=== PATIENT | female | born 1980 | race Caucasian/White ===

== ENCOUNTER 2017-02-05 12:15 | Outpatient (CLI) | payer MEDICARE, MEDICAID ==
[2017-02-05] MEDS ORDERED: IOPAMIDOL-300 100 ML VIAL ONE (12:32)
[2017-02-05] MEDS ORDERED: IOPAMIDOL-300 100 ML VIAL IVP ONE (13:07)
--- NOTE | 2017-02-05 17:21 | CT Report ---
CT PULMONARY ANGIOGRAM: 02/05/2017 CLINICAL INDICATION: Elevated D-dimer. Axial CT images of the chest were obtained with 80 mL Isovue-300 intravenously. Sagittal and coronal 3D reconstructions were performed. In accordance with CT protocol optimization, one or more of the following dose reduction techniques w ere utilized for this exam: automated exposure control, adjustment of mA and/or KV based on patient size, or use of iterative reconstructive technique. The heart and great vessels are unremarkable. There is no evidence of pulmonary embolus. No hilar o r mediastinal lymphadenopathy is present. There is a small amount of soft tissue in the anterior med iastinum, compatible with residual thymic tissue. The lungs are clear. No effusion or pneumothorax is present. Limited evaluation of upper abdominal structures demonstrates normal adrenal glands. Fa tty infiltration of the liver is noted. Osseous structures are unremarkable. IMPRESSION: NO EVIDENCE OF PULMONARY EMBOLUS. FATTY INFILTRATION OF THE LIVER. JOB #: [id number] EXT JOB #:[id number]
== END 2017-02-05 12:16 | disposition home or self-care (01) ==
LOC: DI 12:15
PROVIDERS: ATTEND Family Medicine
DX: K76.0 Fatty (change of) liver, not elsewhere classified (principal)
CPT/HCPCS: 71275; Q9967

== ENCOUNTER 2017-08-01 06:43 | Outpatient (CLI) | payer MEDICARE | END 2017-08-01 06:44 | disposition critical access hospital (66) | LOC: EMS 06:43 | PROVIDERS: ATTEND Surgery | DX: R10.9 Unspecified abdominal pain (principal); M54.9 Dorsalgia, unspecified | CPT/HCPCS: A0425; A0429 ==

== ENCOUNTER 2017-08-01 07:10 | Emergency (ER) | payer MEDICAID, MEDICARE ==
[2017-08-01] MEDS ORDERED: ONDANSETRON 4 MG/2 ML VIAL IVP STA (07:25)
[2017-08-01] MEDS ORDERED: HYDROmorphone 1 MG/ML CARPUJECT IVP STA (07:25)
[2017-08-01] MEDS ORDERED: SODIUM CHLORIDE 0.9% 1,000 ML IV ONE (07:25)
--- NOTE | 2017-08-01 07:30 | ED Physician Documentation ---
PD HPI ABD PAIN - Stated complaint Stated Complaint: RLQ PX - Chief complaint Chief Complaint: Abd Pain - History obtained from History obtained from: Patient - History of Present Illness Timing - onset: Yesterday Timing - details: Gradual onset Quality: Pain Location: RLQ Worsened by: Moving Associated symptoms: Nausea, Vomiting. No: Fever, Diarrhea, Dysuria Similar symptoms before: Has not had sx before - Additional information Additional information: The patient is a 36-year-old female who presents with right lower quadrant abdominal pain. Her pain started yesterday in the periumbilical region. It has become worse this morning and has become more localized to the right lower quadrant. She reports associated vomiting. She denies fever, diarrhea, or dysuria. Her last menstrual period was 2 weeks ago. She is status post cholecystectomy years ago. Review of Systems Constitutional: denies: Fever Nose: denies: Congestion Throat: denies: Sore throat Cardiac: denies: Chest pain / pressure Respiratory: denies: Dyspnea, Cough GI: reports: Abdominal Pain, Nausea, Vomiting. denies: Diarrhea : reports: LMP (2 weeks ago.). 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 : None HEENT: None Psych: Bipolar disorder, Post traumatic stress disorder Musculoskeletal: None Derm: None - Past Surgical History Past Surgical History: Yes General: Cholecystectomy, Other Ortho: Knee replacement, Other - Present Medications Home Medications: Ambulatory Orders Medication Instructions Recorded Confirmed Ibuprofen [Motrin] 400 mg PO Q6H PRN #30 tablet 06/24/15 Lamictal 100 mg PO BID 09/14/15 11/29/15 Seroquel 400 mg PO DAILY 09/14/15 11/29/15 Cyclobenzaprine [Flexeril] 10 mg PO TID PRN #10 tablet 11/29/15 Montelukast [Singulair] 10 mg PO DAILY 11/29/15 11/29/15 clonazePAM [KlonoPIN] 1 mg PO TID 11/29/15 11/29/15 HYDROcod/ACETAM 5/325 [Matewan 5/325] 1 - 2 ea PO Q6H PRN #15 tablet 01/17/16 - Allergies Allergies/Adverse Reactions: Allergies Allergy/AdvReac Type Severity Reaction Status Date / Time tramadol Allergy Rash Verified 08/01/17 07:15 Penicillins AdvReac Intermediate Edema Verified 06/14/15 07:27 - Social History Does the pt smoke?: Yes Smoking Status: Current every day smoker Does the pt drink ETOH?: No Does the pt have substance abuse?: No - Immunizations Immunizations are current?: Yes - POLST Patient has POLST: No PD ED PE NORMAL - Vitals Vital signs reviewed: Yes (Diastolic hypertension initially.) - General General: Alert and oriented X 3, Well developed/nourished - HEENT HEENT: Atraumatic, Moist mucous membranes - Neck Neck: Supple, no meningeal sign, No adenopathy - Cardiac Cardiac: RRR, No murmur - Respiratory Respiratory: No respiratory distress, Clear bilaterally - Abdomen Abdomen: Soft, Other (Tenderness to palpation in the right lower quadrant, without rebound tenderness or guarding.) - Back Back: No CVA TTP - Derm Derm: No rash - Extremities Extremities: No edema, No calf tenderness / cord - Neuro Neuro: Alert and oriented X 3, No motor deficit, Normal speech Results - Vitals Vitals: Vital Signs - 24 hr 08/01/17 09:15 Heart Rate 88 Respiratory 20 Rate Blood Pressure 122/84 H Oxygen O2 Source Room air - Labs Labs: Laboratory Tests 08/01/17 08/01/17 08/01/17 08:20 08:20 08:25 WBC 10.0 RBC 4.56 Hgb 14.4 Hct 40.8 MCV 89.6 MCH 31.5 H MCHC 35.2 RDW 12.7 Plt Count 194 MPV 7.6 L Neut # 4.8 Lymph # 3.8 H Perry # 0.7 Eos # 0.6 Baso # 0.1 Absolute Nucleated RBC 0.00 Nucleated RBC % 0.0 Sodium 137 Potassium 4.5 Chloride 108 Carbon Dioxide 22 Anion Gap 7.0 BUN 6 Creatinine 0.5 Estimated GFR (MDRD) 140 Glucose 104 H Calcium 8.6 Total Bilirubin 0.4 AST 65 H ALT 87 H Alkaline Phosphatase 132 H Total Protein 6.8 Albumin 3.3 Globulin 3.5 Albumin/Globulin Ratio 0.9 L Lipase 12 L Urine Color DARK YELLOW Urine Clarity CLEAR Urine pH 7.0 Ur Specific [place] 1.020 Urine Protein 30 H Urine Glucose (UA) NEGATIVE Urine Ketones NEGATIVE Urine Occult Blood LARGE H Urine Nitrite NEGATIVE Urine Bilirubin NEGATIVE Urine Urobilinogen 0.2 (NORMAL) Ur Leukocyte Esterase TRACE H Urine RBC TNTC H Urine WBC 4-5 Ur Squamous Epith Cells MOD Squamous H Urine Bacteria Rare Ur Microscopic Review INDICATED Urine Culture Comments NOT INDICATED Urine HCG, Qual NEGATIVE - Rads (name of study) CT abd/pelvis Radiology: Prelim report reviewed, EMP read contemporaneously, See rad report ( No acute findings on CT of the abdomen and pelvis. The appendix is normal. Stable left adrenal nodule and right adrenal calcification when compared to 02/05. Diffuse fatty infiltration of the liver. Status post cholecystectomy. Copious fecal material in a sending and transverse colon.) PD MEDICAL DECISION MAKING - ED course Complexity details: reviewed old records, reviewed results, re-evaluated patient , considered differential, d/w patient, d/w family ED course: The underlying cause of the patient's abdominal pain is not clearly elucidated at this time. Consideration to possibility of appendicitis was initially entertained. CT scan of the abdomen and pelvis reveals a normal appendix. Her white blood cell count is also normal at 10.0. Chemistry panel is unremarkable. Urinalysis reveals microscopic hematuria. CT scan did not reveal evidence of ureteral calcification. However administration of IV contrast dye for the CT scan may have impaired the ability to visualize a ureteral stone. There was no secondary evidence of ureteral stone, such as hydronephrosis or hydroureter. Treatment in the emergency department included administration of normal saline IV, Zofran 4 mg IV, and Dilaudid 1 mg IV. It had taken numerous attempts before an IV was successfully established. Unfortunately the IV became unserviceable while the patient was undergoing injection of IV contrast dye. Because of continued pain, ketorolac 60 mg is administered IM. The patient became very frustrated with her overall care, expressing dissatisfaction with the multiple attempts to establish IV access, the lack of adequate control of her pain, and the nondiagnostic results of the CT scan. I discussed with her the most obvious abnormality seen on the CT scan being copious fecal material in the ascending and transverse colon. She totally discounted that as the cause of her pain, stating that she has bowel movements on a daily basis. I also expressed concern about microscopic hematuria on her urinalysis. Her last menstrual period was 2 weeks ago, so she doubts vaginal bleeding as the source of the hematuria. I discussed performance of gynecologic exam to further evaluate for the possibility of dysfunctional uterine bleeding. After an in-depth discussion, she agreed to undergo pelvic examination. However, after the nurse had moved her to a room where that exam could be performed, the patient subsequently insisted on leaving the emergency department without completing the exam. She told the nurse she was leaving, and I did not have an opportunity to intervene before she was gone. Her mother was with her at the time of her departure, and, according to the nurse, tried to encourage the patient to stay for the examination, but was unsuccessful. Departure - Departure Disposition: 07 Against Medical Advice Clinical Impression: Abdominal pain Qualifiers: Abdominal location: right lower quadrant Qualified Code(s): R10.31 - Right lower quadrant pain Hematuria Qualifiers: Hematuria type: unspecified type Qualified Code(s): R31.9 - Hematuria, unspecified Discharge Date/Time: 08/01/17 11:02
[2017-08-01] MEDS ORDERED: IOPAMIDOL-300 100 ML VIAL ONE (07:42)
[2017-08-01 08:26] LABS: BASOPHILS # (AUTO) 0.1 10^3/uL (0.0-0.1); BASOPHILS % (AUTO) 0.7 %; EOSINOPHILS # (AUTO) 0.6 10^3/uL (0.0-0.7); EOSINOPHILS % (AUTO) 6.2 %; HGB - HEMOGLOBIN 14.4 g/dL (12.0-16.0); LYMPHOCYTES # (AUTO) 3.8 10^3/uL (1.5-3.5); LYMPHOCYTES % (AUTO) 37.8 %; MEAN CORPUSCULAR HEMOGLOBIN 31.5 pg (27.0-31.0); MEAN CORPUSCULAR HGB CONC 35.2 g/dL (32.0-36.0); MEAN CORPUSCULAR VOLUME 89.6 fL (81.0-99.0); MEAN PLATELET VOLUME 7.6 fL (7.9-10.8); MONOCYTES # (AUTO) 0.7 10^3/uL (0.0-1.0); NEUTROPHILS # (AUTO) 4.8 10^3/uL (1.5-6.6); NEUTROPHILS % (AUTO) 48.3 %; PLT - PLATELET COUNT 194 10^3/uL (130-450); RED BLOOD COUNT 4.56 10^6/uL (4.20-5.40); RED CELL DISTRIBUTION WIDTH 12.7 % (12.0-15.0)
[2017-08-01 08:35] LABS: BILIRUBIN,URINE NEGATIVE (NEGATIVE); GLUCOSE, URINE (UA) NEGATIVE (NEGATIVE); KETONES,URINE (UA) NEGATIVE (NEGATIVE); LEUKOCYTE ESTERASE, URINE TRACE (NEGATIVE); NITRITE,URINE NEGATIVE (NEGATIVE); OCCULT BLOOD,URINE LARGE (NEGATIVE); PROTEIN,URINE 30 mg/dL (NEGATIVE); UROBILINOGEN,URINE 0.2 (NORMAL) E.U./dL (NORMAL)
[2017-08-01 08:38] LABS: CLARITY,URINE CLEAR (CLEAR); HCG UR QUAL NEGATIVE
[2017-08-01 08:40] LABS: ALBUMIN 3.3 g/dL (3.2-5.5); ALBUMIN/GLOBULIN RATIO 0.9 (1.0-2.2); BILIRUBIN,TOTAL 0.4 mg/dL (0.2-1.0); CALCIUM 8.6 mg/dL (8.5-10.3); CREATININE 0.5 mg/dL (0.4-1.0); TOTAL PROTEIN 6.8 g/dL (6.7-8.2)
[2017-08-01] MEDS ORDERED: KETOROLAC 60 MG/2 ML VIAL IM STA (09:20)
[2017-08-01 09:31] LABS: BACTERIA,URINE Rare /HPF (None Seen); RBC,URINE TNTC /HPF (0-5); SQUAMOUS EPITHELIAL CELL,UR MOD Squamous (<= Few)
--- NOTE | 2017-08-01 09:36 | CT Report ---
EXAM: CT ABDOMEN AND PELVIS EXAM DATE: 08/01/2017 09:13 AM. CLINICAL HISTORY: RLQ abd. pain. COMPARISONS: Chest CT 02/05/2017. TECHNIQUE: Routine helical CT imaging was performed through the abdomen and pelvis. IV contrast: Mini mal. Insufficient venous access. 3 cc of extravasation with attempted contrast injection. Enteric con trast: No. Reconstructions: Coronal and sagittal. In accordance with CT protocol optimization, one or more of the following dose reduction techniques w ere utilized for this exam: automated exposure control, adjustment of mA and/or KV based on patient s ize, or use of iterative reconstructive technique. FINDINGS: Lung Bases: Tiny bilateral pleural effusions. Liver: Fatty infiltration. No masses. Gallbladder/Bile Ducts: Status post cholecystectomy Spleen: Normal. Pancreas: Normal. Adrenal Glands: Stable left adrenal nodule 1.3 x 1.8 cm when compared with 02/05/2017. Calcification right adrenal gland also stable. Kidneys: Normal. No masses or hydronephrosis. Peritoneal Cavity/Bowel: No free fluid, free air or adenopathy. No masses or acute inflammatory proc ess. The appendix is well seen, air-filled, and normal. Copious fecal material right and transverse c olon. Pelvic Organs: The bladder and pelvic organs are within normal limits. Vasculature: No aneurysms or other significant abnormality. Bones: No significant abnormality. Other: None. IMPRESSION: 1. No acute findings abdomen and pelvic CT. The appendix is normal. 2. Stable left adrenal nodule and right adrenal calcification when compared with 02/05/2017. 3. Diffuse fatty infiltration of the liver. 4. Status post cholecystectomy. 5. Copious fecal material in ascending and transverse colon. [facility] Referring Provider Line: [phone] SITE ID: [id number]
[2017-08-01] MEDS ORDERED: IOPAMIDOL-300 100 ML VIAL IVP ONE (09:57)
[2017-08-01 16:41] VITALS: BP 122/84
== END 2017-08-01 11:02 | disposition left against medical advice (07) ==
LOC: ED 07:10
DX: R10.31 Right lower quadrant pain (principal); R31.9 Hematuria, unspecified; J45.909 Unspecified asthma, uncomplicated; F17.200 Nicotine dependence, unspecified, uncomplicated
CPT/HCPCS: 36415; 74176; 80053; 81001; 81025; 83690; 85025; 96361; 96372; 96374; 99284; J1170; Q9967; 81003; 87086

== ENCOUNTER 2017-09-17 08:46 | Outpatient (CLI) | payer MEDICARE, MEDICAID | END 2017-09-17 08:47 | disposition critical access hospital (66) | LOC: EMS 08:46 | PROVIDERS: ATTEND Surgery | DX: R06.00 Dyspnea, unspecified (principal) | CPT/HCPCS: A0425; A0427 ==

== ENCOUNTER 2017-09-17 09:09 | Emergency (ER) | payer MEDICARE, MEDICAID ==
[2017-09-17] MEDS ORDERED: DEXAMETHASONE 10 MG/ML VIAL PO STA (09:30)
[2017-09-17] MEDS ORDERED: IPRATROPIUM/ALBUTEROL 3 ML NEB INH STA (09:30)
[2017-09-17] MEDS ORDERED: BENZONATATE 100 MG CAPSULE PO STA (09:30)
[2017-09-17] MEDS ORDERED: CHERRY SYRUP 10 ML UDC PO ONE (10:17)
[2017-09-17 10:33] VITALS: BP 134/75
--- NOTE | 2017-09-17 10:51 | XRAY Report ---
EXAM: CHEST RADIOGRAPHY, 2 VIEWS EXAM DATE: 09/17/2017 10:28 AM. CLINICAL HISTORY: SOA and cough in a 36-year-old female. COMPARISON: Contrast-enhanced CT pulmonary angiogram performed on 02/05/2017.. TECHNIQUE: Upright PA and lateral views. FINDINGS: Lungs/Pleura: No focal opacities evident. No pleural effusion. No pneumothorax. Normal volumes. Mediastinum: Heart and mediastinal contours are unremarkable. No pulmonary vascular congestion or rick nopathy. Other: Trachea is midline. Osseous structures are unremarkable. IMPRESSION: Normal chest for age and body size, stable. No pneumonia or other demonstrated cause for the patient's symptoms. [facility] Referring Provider Line: [phone] SITE ID: [id number]
--- NOTE | 2017-09-17 11:21 | ED Physician Documentation ---
PD HPI URI - Stated complaint Stated Complaint: DIFFICULTY BREATHING - Chief complaint Chief Complaint: Resp - History obtained from History obtained from: Patient - History of Present Illness Timing - onset: How many days ago (2) Timing duration: Days (2) Timing details: Gradual onset, Still present Associated symptoms: Nasal congestion, Rhinorrhea, Productive cough, Dyspnea Improves by: Rest, MDI/nebulizer Worsened by: Activity Similar symptoms before: Diagnosis (asthma and bronchitis) Recently seen: Not recently seen Review of Systems Constitutional: denies: Fever Eyes: denies: Decreased vision Ears: denies: Ear pain Nose: reports: Rhinorrhea / runny nose, Congestion Throat: reports: Sore throat Cardiac: reports: Chest pain / pressure. 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 : None HEENT: None Psych: Bipolar disorder, Post traumatic stress disorder Musculoskeletal: None Derm: None - Past Surgical History Past Surgical History: Yes General: Cholecystectomy, Other Ortho: Knee replacement, Other - Present Medications Home Medications: Ambulatory Orders Medication Instructions Recorded Confirmed Seroquel 400 mg PO DAILY 09/14/15 11/29/15 Cyclobenzaprine [Flexeril] 10 mg PO TID PRN #10 tablet 11/29/15 Montelukast [Singulair] 10 mg PO DAILY 11/29/15 11/29/15 Azithromycin [Zithromax] 250 mg PO DAILY #6 tablet 09/17/17 Benzonatate [Tessalon] 100 - 200 mg PO TID PRN #20 capsule 09/17/17 predniSONE [Deltasone] 10 mg PO DAILY #26 tablet 09/17/17 - Allergies Allergies/Adverse Reactions: Allergies Allergy/AdvReac Type Severity Reaction Status Date / Time tramadol Allergy Rash Verified 08/01/17 07:15 Penicillins AdvReac Intermediate Edema Verified 06/14/15 07:27 - Social History Does the pt smoke?: Yes Smoking Status: Current every day smoker Does the pt drink ETOH?: No Does the pt have substance abuse?: No - Immunizations Immunizations are current?: Yes - POLST Patient has POLST: No PD ED PE NORMAL - Vitals Vital signs reviewed: Yes (tachy and hypertension diasolic) - General General: Alert and oriented X 3, Well developed/nourished - HEENT HEENT: Atraumatic, PERRL, EOMI, Other (minimal inflamation in the left ear. ) - Neck Neck: Supple, no meningeal sign, No bony TTP - Cardiac Cardiac: No murmur, Other (tachy ) - Respiratory Respiratory: Other (tachypneic and with diminished breath sounds ) - Abdomen Abdomen: Soft, Non tender - Back Back: No CVA TTP, No spinal TTP - Derm Derm: Normal color, Warm and dry, No rash - Extremities Extremities: No deformity, No edema - Neuro Neuro: Alert and oriented X 3, No motor deficit, No sensory deficit, Normal speech Eye Opening: Spontaneous Motor: Obeys Commands Verbal: Oriented GCS Score: 15 - Psych Psych: Normal mood, Normal affect Results - Vitals Vitals: Vital Signs - 24 hr 09/17/17 09/17/17 09/17/17 09:12 09:55 10:30 Temperature 37.3 C Heart Rate 116 H 107 H 105 H Respiratory 20 20 18 Rate Blood Pressure 110/96 H 134/75 H O2 Saturation 97 96 09/17/17 11:33 Temperature Heart Rate 95 Respiratory Rate Blood Pressure O2 Saturation 96 Oxygen O2 Source Room air - Rads (name of study) 2 veiw chest Radiology: Prelim report reviewed (Impression: Normal chest for age and body size, stable. No pneumonia or other demonstrated cause for the patient's symptoms.), EMP read indepedently, See rad report PD MEDICAL DECISION MAKING - ED course Complexity details: reviewed results, re-evaluated patient, considered differential, d/w patient ED course: 36-year-old female with chronic persistent asthma has developed acute bronchitis with coughing paroxysms and dyspnea. She has not had much relief with the use of her inhaler or nebulizer machine she did seem to get some relief with the use of the DuoNeb. She is administered a DuoNeb in route to the hospital she is administered a second albuterol and nebulizer and she is administered a second DuoNeb treatment. She has some improvement in her air movement she is administered dexamethasone orally and we will put her on some antibiotic as well as a prednisone taper. Departure - Departure Disposition: 01 Home, Self Care Clinical Impression: Asthma Qualifiers: Asthma severity: moderate Asthma persistence: persistent Asthma complication type: with acute exacerbation Qualified Code(s): J45.41 - Moderate persistent asthma with (acute) exacerbation Instructions: ED Bronchitis Asthmatic Follow-Up: Billy Azevedo MD [Primary Care Provider] - Prescriptions: Azithromycin [Zithromax] 250 mg PO DAILY #6 tablet Benzonatate [Tessalon] 100 - 200 mg PO TID PRN #20 capsule PRN Reason: Cough predniSONE [Deltasone] 10 mg PO DAILY #26 tablet Discharge Date/Time: 09/17/17 11:35
== END 2017-09-17 11:35 | disposition home or self-care (01) ==
LOC: EDUNIT# → ED 09:09
DX: J45.41 Moderate persistent asthma with (acute) exacerbation (principal); F17.200 Nicotine dependence, unspecified, uncomplicated
CPT/HCPCS: 71046; 94640; 99283; 99284; A9270

== ENCOUNTER 2017-09-18 10:27 | Outpatient (CLI) | payer MEDICARE, MEDICAID | END 2017-09-18 10:28 | disposition critical access hospital (66) | LOC: EMS 10:27 | PROVIDERS: ATTEND Surgery | DX: R06.00 Dyspnea, unspecified (principal); R41.0 Disorientation, unspecified | CPT/HCPCS: A0425; A0427 ==

== ENCOUNTER 2017-09-18 10:49 | Inpatient (IN) | payer MEDICARE, MEDICAID ==
[2017-09-18] MEDS ORDERED: DEXAMETHASONE 10 MG/ML VIAL IVP STA (10:57)
[2017-09-18] MEDS ORDERED: ALBUTEROL NEB 2.5 MG/3 ML INH STA ×2 (10:57→13:36)
--- NOTE | 2017-09-18 11:00 | ED Physician Documentation ---
History of Present Illness - Stated complaint Stated Complaint: AMS, WHEEZING - Additonal information Additional information: hx from pt 36 f BIBA for resp failure seen yesterday for asthma got better with nebs had nebs at home EMS called today by margy and found pt minimally responsive on couch covered in feces with an O2 sat of 70% per EMS gma stated she had a neb machine but no meds at home pt denies any pain denies fever denies fall denies preg no IV access upon arrival Review of Systems Constitutional: denies: Fever Cardiac: denies: Chest pain / pressure Respiratory: reports: Dyspnea, Cough GI: denies: Abdominal Pain : denies: Now EGA Musculoskeletal: denies: Extremity swelling PD PAST MEDICAL HISTORY - Past Medical History Cardiovascular: None Respiratory: Asthma Neuro: None Endocrine/Autoimmune: None GI: None 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 : None HEENT: None Psych: Bipolar disorder, Post traumatic stress disorder Musculoskeletal: None Derm: None - Past Surgical History Past Surgical History: Yes General: Cholecystectomy, Other Ortho: Knee replacement, Other - Present Medications Home Medications: Ambulatory Orders Medication Instructions Recorded Confirmed Montelukast [Singulair] 10 mg PO DAILY 11/29/15 09/18/17 Albuterol 2.5 mg INH Q4H PRN 09/18/17 09/18/17 Albuterol Sulf [Ventolin Hfa 1 - 2 puffs INH Q4HR PRN 09/18/17 09/18/17 Inhaler] Desvenlafaxine Succinate 25 mg PO DAILY 09/18/17 09/18/17 [Desvenlafaxine Succinate ER] Desvenlafaxine [Desvenlafaxine ER] 100 mg PO DAILY 09/18/17 09/18/17 Ibuprofen 800 mg PO PRN PRN 09/18/17 09/18/17 Ipratropium/Albuterol [Combivent 2 puffs INH Q4H PRN 09/18/17 09/18/17 Respimat] Lurasidone HCl [Latuda] 40 mg PO DAILY 09/18/17 09/18/17 Medroxyprogesterone Acetate 150 mg IM .EVERY 3 MONTHS 09/18/17 09/18/17 [Depo-Provera] Quetiapine Fumarate [Seroquel] 400 mg PO QPM 09/18/17 09/18/17 clonazePAM [Clonazepam] 1 mg PO TID 09/18/17 09/18/17 lamoTRIgine [LaMICtal] 100 mg PO BID 09/18/17 09/18/17 - Allergies Allergies/Adverse Reactions: Allergies Allergy/AdvReac Type Severity Reaction Status Date / Time tramadol Allergy Rash Verified 08/01/17 07:15 Penicillins AdvReac Intermediate Edema Verified 06/14/15 07:27 - Social History Does the pt smoke?: Yes Smoking Status: Current every day smoker Does the pt drink ETOH?: No Does the pt have substance abuse?: No - Immunizations Immunizations are current?: Yes - POLST Patient has POLST: No PD ED PE NORMAL - Vitals Vital signs reviewed: Yes (on 100% NRB) - General General: No: Alert and oriented X 3 (groggy but able to anser questions) - HEENT HEENT: PERRL - Neck Neck: Supple, no meningeal sign - Cardiac Cardiac: RRR - Respiratory Respiratory: Other (severe resp distress, per EMS improving on neb) - Abdomen Abdomen: Soft, Non tender - Extremities Extremities: No edema - Neuro Neuro: Alert and oriented X 3 Results - Vitals Vitals: Vital Signs - 24 hr 09/18/17 09/18/17 11:09 11:10 Heart Rate 135 H 138 H Respiratory 26 H 35 H Rate Blood Pressure 145/94 H O2 Saturation 93 Oxygen O2 Source nebulizer @ 10L 02 - EKG (time done) 1119 Rate: Rate (enter#) Rhythm: Sinus tachycardia Intervals: Normal NM Ischemia: Non specific changes - Labs Labs: Laboratory Tests 09/18/17 09/18/17 09/18/17 12:02 12:02 12:02 WBC 22.1 H RBC 4.94 Hgb 15.5 Hct 44.7 MCV 90.5 MCH 31.4 H MCHC 34.7 RDW 13.5 Plt Count 177 MPV 7.8 L Neut # Not Reportable Lymph # Not Reportable Craven # Not Reportable Eos # Not Reportable Baso # Not Reportable Absolute Nucleated RBC Not Reportable Total Counted 100 Band Neuts % (Manual) 48 H Reactive Lymphs % (Man) 2 Abnorm Lymph % (Manual) 0 Metamyelocytes % 8 H Nucleated RBC % Not Reportable Neutrophils # (Manual) 16.6 H Lymphocytes # (Manual) 2.2 Monocytes # (Manual) 1.5 H Eosinophils # (Manual) 0.0 Basophils # (Manual) 0.0 Differential Comment MANUAL DIFFERENTIAL WBC Morphology 1+ DOHLE BODIES PT INR Bld Gas Analysis Time Sample Site ABG pH ABG pCO2 ABG pO2 ABG HCO3 ABG Total CO2 ABG O2 Saturation ABG Oximetry Spot Check ABG Base Excess Silvano Test O2 Delivery Device O2 Liters/Min Sodium 132 L Potassium 4.1 Chloride 98 L Carbon Dioxide 22 Anion Gap 12.0 BUN 19 Creatinine 0.9 Estimated GFR (MDRD) 71 L Glucose 189 H Lactic Acid Calcium 8.0 L Total Bilirubin AST ALT Alkaline Phosphatase B-Natriuretic Peptide Total Protein Albumin Serum HCG, Qual NEGATIVE 09/18/17 09/18/17 09/18/17 12:02 12:02 12:02 WBC RBC Hgb Hct MCV MCH MCHC RDW Plt Count MPV Neut # Lymph # [place]ven # Eos # Baso # Absolute Nucleated RBC Total Counted Band Neuts % (Manual) Reactive Lymphs % (Man) Abnorm Lymph % (Manual) Metamyelocytes % Nucleated RBC % Neutrophils # (Manual) Lymphocytes # (Manual) Monocytes # (Manual) Eosinophils # (Manual) Basophils # (Manual) Differential Comment WBC Morphology PT 13.7 H INR 1.2 Bld Gas Analysis Time Sample Site ABG pH ABG pCO2 ABG pO2 ABG HCO3 ABG Total CO2 ABG O2 Saturation ABG Oximetry Spot Check ABG Base Excess Sil[place] Test O2 Delivery Device O2 Liters/Min Sodium Potassium Chloride Carbon Dioxide Anion Gap BUN Creatinine Estimated GFR (MDRD) Glucose Lactic Acid Calcium Total Bilirubin 1.0 AST 102 H ALT 91 H Alkaline Phosphatase 103 B-Natriuretic Peptide 84 Total Protein 7.6 Albumin 3.5 Serum HCG, Qual 09/18/17 09/18/17 12:15 14:57 WBC RBC Hgb Hct MCV MCH MCHC RDW Plt Count MPV Neut # Lymph # [place]ven # Eos # Baso # Absolute Nucleated RBC Total Counted Band Neuts % (Manual) Reactive Lymphs % (Man) Abnorm Lymph % (Manual) Metamyelocytes % Nucleated RBC % Neutrophils # (Manual) Lymphocytes # (Manual) Monocytes # (Manual) Eosinophils # (Manual) Basophils # (Manual) Differential Comment WBC Morphology PT INR Bld Gas Analysis Time 1216 Sample Site RIGHT RADIAL ABG pH 7.33 L ABG pCO2 45 ABG pO2 86 ABG HCO3 23.2 ABG Total CO2 24.6 ABG O2 Saturation 95 ABG Oximetry Spot Check 94 ABG Base Excess -2.8 L Silvano Test POSITIVE O2 Delivery Device NON REBREATHER MASK O2 Liters/Min 12.00 Sodium Potassium Chloride Carbon Dioxide Anion Gap BUN Creatinine Estimated GFR (MDRD) Glucose Lactic Acid 2.4 H Calcium Total Bilirubin AST ALT Alkaline Phosphatase B-Natriuretic Peptide Total Protein Albumin Serum HCG, Qual - Rads (name of study) CXR Radiology: See rad report (freeman diffuse opacities c/w edema) CTPA Radiology: See rad report (no PE, multilobar patchy new airspace dz suspicious for pna vs aspiration, new freeman mediastinal and hilar adenopathy likely reactive) PD MEDICAL DECISION MAKING - ED course ED course: still marked resp distress despite numerous nebs and steroids gave mag as well WBC 22 with 48% bands so got blood cx lactate and started ab (zmax and then clinda when CT showed possible aspiration) such severe resp distress not responding to asthma tx so consider PE - gave lovenox and ordered CTPA CTPA neg for PE but looks like aspiration, added clinda pt has had 9 nebs and dex pt still with resp distress - not hypercapneic - so tried BiPAP, pt with anxiety about mask and needed ativan but after that BiPAP working well still tachypneic but more comfortable paged hospitalist for admit at 1445 Departure - Departure Disposition: 66 [facility] DC/Xfer Clinical Impression: Respiratory failure Qualifiers: Chronicity: acute Respiratory failure complication: hypoxia Qualified Code(s): J96.01 - Acute respiratory failure with hypoxia Pneumonia Qualifiers: Pneumonia type: due to unspecified organism Laterality: right Lung location: middle lobe of lung Qualified Code(s): J18.1 - Lobar pneumonia, unspecified organism Asthma Qualifiers: Asthma severity: severe Asthma complication type: with acute exacerbation Condition: Good Discharge Date/Time: 09/18/17 18:30
[2017-09-18] MEDS ORDERED: DEXAMETHASONE 10 MG/ML VIAL IM STA (11:05)
--- NOTE | 2017-09-18 11:23 | XRAY Report ---
EXAM: CHEST RADIOGRAPHY EXAM DATE: 09/18/2017 11:03 AM. CLINICAL HISTORY: [place]. COMPARISON: 09/17/2017. TECHNIQUE: 1 view. FINDINGS: Lungs/Pleura: Diffuse bilateral reticular opacities are new from prior. No focal consolidation. No pn eumothorax or large pleural effusion. Mediastinum: Within exam limitations, the cardiomediastinal contour is normal. Other: None. IMPRESSION: New diffuse bilateral opacities are most compatible with pulmonary edema. [facility] Referring Provider Line: [phone] SITE ID: [id number]
[2017-09-18 12:11] LABS: BASOPHILS % (AUTO) 0.6 %; EOSINOPHILS % (AUTO) 0.1 %; HGB - HEMOGLOBIN 15.5 g/dL (12.0-16.0); LYMPHOCYTES % (AUTO) 6.1 %; MEAN CORPUSCULAR HEMOGLOBIN 31.4 pg (27.0-31.0); MEAN CORPUSCULAR HGB CONC 34.7 g/dL (32.0-36.0); MEAN CORPUSCULAR VOLUME 90.5 fL (81.0-99.0); MEAN PLATELET VOLUME 7.8 fL (7.9-10.8); NEUTROPHILS % (AUTO) 87.2 %; PLT - PLATELET COUNT 177 10^3/uL (130-450); RED BLOOD COUNT 4.94 10^6/uL (4.20-5.40); RED CELL DISTRIBUTION WIDTH 13.5 % (12.0-15.0); WHITE BLOOD COUNT 22.1 x10^3/uL (4.8-10.8)
[2017-09-18 12:15] LABS: ABNORMAL LYMPHS % (MANUAL) 0 %
[2017-09-18 12:22] LABS: CREATININE 0.9 mg/dL (0.4-1.0)
[2017-09-18 12:28] LABS: ABG BASE EXCESS -2.8 mmol/L (-2.0-3.0); ABG HCO3 23.2 mmol/L (22.0-26.0); ABG OXYGEN SATURATION 95 % (94-98); ABG PCO2 45 mmHg (34-45); ABG PH 7.33 (7.35-7.45); ABG PO2 86 mmHg (80-100); ABG TCO2 24.6 MMOL/L (21.0-29.0); ALLEN TEST POSITIVE
[2017-09-18 12:29] LABS: HCG,QUALITATIVE BLOOD NEGATIVE
[2017-09-18 12:58] LABS: BAND NEUTROPHILS % (MANUAL) 48 %; LYMPHOCYTES # (MANUAL) 2.2 10^3/uL (1.5-3.5); LYMPHOCYTES % (MANUAL) 8 %; METAMYELOCYTES % (MANUAL) 8 %; MONOCYTES # (MANUAL) 1.5 10^3/uL (0.0-1.0); NEUTROPHILS # (MANUAL) 16.6 10^3/uL (1.5-6.6); NEUTROPHILS % (MANUAL) 27 %
[2017-09-18 12:59] LABS: DIFFERENTIAL COMMENT MANUAL DIFFERENTIAL
[2017-09-18] MEDS ORDERED: AZITHROMYCIN INJ 500 MG in SODIUM CHLORIDE 0.9% 250 ML IV STA (13:05)
[2017-09-18] MEDS ORDERED: IOPAMIDOL-300 100 ML VIAL ONE (13:33)
[2017-09-18] MEDS ORDERED: MAGNESIUM SULFATE 2 GRAM 2 GM/50 ML BAG IV ONE (13:36)
[2017-09-18] MEDS ORDERED: ENOXAPARIN 80 MG/0.8 ML SYRINGE SUBQ STA (13:37)
[2017-09-18] MEDS ORDERED: PROCHLORPERAZINE 10 MG/2 ML VIAL IVP PRN (15:37)
[2017-09-18] MEDS ORDERED: IPRATROPIUM 0.2 MG/ML NEB INH PRN (15:37)
--- NOTE | 2017-09-18 15:49 | CT Preliminary Report ---
Exam: CT CHEST ANGIO (PE) IMPRESSION: 1. Negative for acute pulmonary embolism to the proximal segmental level. 2. Multilobar patchy new airspace disease suspicious for pneumonia versus aspiration. 3. New bilateral mediastinal and hilar lymphadenopathy, probably reactive. [facility] SITE ID: [id number]
--- NOTE | 2017-09-18 15:50 | CT Report ---
EXAM: CT ANGIOGRAM CHEST EXAM DATE: 09/18/2017 03:14 PM. CLINICAL HISTORY: Chest pain and shortness of air. Tachycardia. COMPARISON: 02/05/2017. TECHNIQUE: Routine helical imaging was performed through the chest in the pulmonary arterial phase. I V Contrast: 80ML ISOVUE 300. Reconstructions: Coronal 3-D MIP reconstructions.Sagittal and coronal. In accordance with CT protocol optimization, one or more of the following dose reduction techniques w ere utilized for this exam: automated exposure control, adjustment of mA and/or KV based on patient s ize, or use of iterative reconstructive technique. FINDINGS: Pulmonary Arteries: Diagnostic quality: Adequate through the segmental arteries. No evidence of acute pulmonary embolism to the proximal segmental level. The distal segmental arteries and the subsegmental arteries are part ially obscured in the lower lobes secondary to respiratory motion artifact. There is mild to moderate amount of respiratory motion artifact. Lungs/Pleura: There is consolidation within the right middle lobe. There are patchy peribronchovascul ar nodules and groundglass opacities within all lobes. The patient is breathing throughout the examin ation. No central endobronchial obstructing mass. There is a trace right pleural effusion. No left-si ded pleural effusion. Mediastinum: The heart size is normal. There is mild bilateral hilar and mediastinal lymphadenopathy which appears new. Thoracic Aorta: No aneurysm or dissection. Upper Abdomen: There is steatosis of the liver. There are calcifications in the right adrenal gland. There is an unchanged left adrenal nodule. Other: None. IMPRESSION: 1. Negative for acute pulmonary embolism to the proximal segmental level. 2. Multilobar patchy new airspace disease suspicious for pneumonia versus aspiration. 3. New bilateral mediastinal and hilar lymphadenopathy, probably reactive. [facility] Referring Provider Line: [phone] SITE ID: [id number]
[2017-09-18] MEDS ORDERED: MORPHINE 2 MG/ML SYRINGE IVP STA (16:01)
[2017-09-18] MEDS ORDERED: LORazepam 2 MG/ML VIAL IVP STA (16:01)
[2017-09-18] MEDS ORDERED: CLINDAMYCIN 600 MG/50 ML 50 ML IV ONE (16:02)
[2017-09-18 16:07] LABS: INR 1.2 (0.8-1.2); PT - PROTHROMBIN TIME 13.7 secs (9.9-12.6)
[2017-09-18] MEDS ORDERED: IOPAMIDOL-300 100 ML VIAL IVP ONE (16:13)
[2017-09-18 16:30] LABS: ALBUMIN 3.5 g/dL (3.2-5.5); TOTAL PROTEIN 7.6 g/dL (6.7-8.2)
[2017-09-18] MEDS ORDERED: ALBUTEROL NEB 2.5 MG/3 ML INH SCH (17:00)
[2017-09-18] MEDS ORDERED: ALBUTEROL NEB 2.5 MG/3 ML INH ONE (17:00)
[2017-09-18] MEDS: MORPHINE 2 MG/ML SYRINGE IVP PRN (19:51)
[2017-09-18] MEDS: SODIUM CHLORIDE FLUSH 0.9% 10 ML SYRINGE IVP SCH (19:53)
[2017-09-18] MEDS: LORazepam 2 MG/ML VIAL IVP PRN (19:54)
[2017-09-18] MEDS: methylPREDNISolone SUCCINATE 40 MG/ML VIAL IVP SCH (19:58)
[2017-09-18] MEDS ORDERED: fentaNYL 100 MCG/2 ML VIAL IVP PRN (20:23)
[2017-09-18 20:49] LABS: MUDS CUTOFF CONCENTRATIONS CUTOFF CONC BELOW:
[2017-09-18] MEDS ORDERED: SODIUM CHLORIDE 0.9% 1,000 ML IV ONE (20:54)
[2017-09-18] MEDS ORDERED: ROCURONIUM 50 MG/5 ML VIAL IVP ONE ×2 (21:00→22:55)
[2017-09-18] MEDS ORDERED: SUCCINYLCHOLINE 200 MG/10 ML VIAL IVP ONE (21:00)
[2017-09-18] MEDS ORDERED: PROPOFOL 200 MG/20 ML VIAL IVP ONE (21:00)
[2017-09-18] MEDS: PROPOFOL 1000 MG/100 ML 100 ML IV SCH (21:00)
[2017-09-18] MEDS ORDERED: PANTOPRAZOLE 40 MG VIAL IVP SCH (21:00)
[2017-09-18] MEDS ORDERED: LIDOCAINE-MPF 2% 5 ML VIAL IM ONE (21:00)
[2017-09-18 21:03] LABS: AMPHETAMINE SCREEN,URINE NEGATIVE (NEGATIVE); BENZODIAZEPINES SCREEN, URINE NEGATIVE (NEGATIVE); COCAINE SCREEN URINE NEGATIVE (NEGATIVE); METHADONE SCREEN, URINE NEGATIVE (NEGATIVE); METHAMPHETAMINES SCREEN, URINE NEGATIVE (NEGATIVE); OPIATE SCREEN, URINE POSITIVE (NEGATIVE); OXYCODONE SCREEN, URINE NEGATIVE (NEGATIVE); PROPOXYPHENE SCREEN, URINE NEGATIVE (NEGATIVE); TRICYCLIC ANTIDEPRESSANT,URINE POSITIVE (NEGATIVE)
--- NOTE | 2017-09-18 21:05 | PROVIDER PROGRESS NOTE ---
Subjective - Prog Note Date Prog Note Date: 09/18/17 - Subjective Pt reports feeling: Worse (Somnolent/encephalopathic, remains in resp distress on BiPAP with increased work of breathing and RespRate in 40s. HR and BP upgoing ) Objective - Vital Signs/Intake & Output Vital Signs: Vital Signs x48h Pulse Resp BP Pulse Ox 09/18/17 18:47 118 H 41 H 127/99 H 97 09/18/17 17:00 121 H 09/18/17 16:55 132 H 41 H Intake & Output: Intake & Output 09/15/17 09/16/17 09/17/17 09/18/17 23:59 23:59 23:59 23:59 Intake Total 250 Balance 250 - Objective General Appearance: positive: Severe distress, Lethargic Eyes Bilateral: positive: Conjunctivae nml, No scleral icterus ENT: positive: Dry mucous membranes Neck: positive: Trachea midline Respiratory: positive: Wheezes, Rales, Rhonchi, Other (decreased air entry above all lung ivey) Cardiovascular: positive: Tachycardia Abdomen: positive: Other (Distended, bowel tones present) Skin: positive: No rash Extremities: positive: No pedal edema Neurologic/Psychiatric: positive: Other (global encephalopathy, nonfocal) - Lab Results Fish Bones: 09/18/17 12:02 09/18/17 12:02 ABX Reporting Has patient been on IV antibiotics over the past 48 hours?: Yes Assessment/Plan - Problem List (1) Respiratory failure Impression: Respiratory failure with hypoxia; increased work of breathing and increased lactic acid/likely muscle fatigue. Failing BiPAP. Aspiration/ PNA Asthma exacerbation/reactive airway Suspect drug use or prescription medication misuse Encephalopathy seconbdary to hypoxemia and possible drug use Lactic acidosis (sepsis plus muscle fatigue) Sepsis /PNA/Aspiration PLAN: Intubation and mechanical ventilation; RASS sedation, PPI for GI prophylaxis, DVT prophylaxis, maintenance IVF, continue ABX, steroid, bronchodilatiors. Sputum cx. Drug screen pending. Qualifiers: Chronicity: acute Respiratory failure complication: hypoxia Qualified Code(s): J96.01 - Acute respiratory failure with hypoxia
--- NOTE | 2017-09-18 21:56 | XRAY Report ---
EXAM: CHEST RADIOGRAPHY EXAM DATE: 09/18/2017 09:05 PM. CLINICAL HISTORY: Post intubation. COMPARISON: 09/18/2017 at 1054. TECHNIQUE: 1 view. FINDINGS: Lungs/Pleura: There are bilateral patchy reticulonodular densities. The lung volumes appear stable. T here is no pneumothorax. Mediastinum: There is a new endotracheal tube. The tip of the endotracheal tube is in the proximal ri ght mainstem bronchus approximately 8 mm beyond the vesta. The heart size is normal. Other: None. IMPRESSION: 1. Endotracheal tube tip in proximal right main stem bronchus 8 mm below the vesta. 2. Patchy bilateral airspace nodularity suspicious for pneumonia is similar to earlier today [facility] The above findings were discussed with Negra Botello by Dr. Etienne Young at 21:54 hrs on . Referring Provider Line: [phone] SITE ID: [id number]
--- NOTE | 2017-09-18 21:56 | XRAY Preliminary Report ---
Exam: XR CHEST 1 VIEW X-RAY IMPRESSION: 1. Endotracheal tube tip in proximal right main stem bronchus 8 mm below the vesta. 2. Patchy bilateral airspace nodularity suspicious for pneumonia is similar to earlier today [facility] The above findings were discussed with Negra Botello by Dr. Etienne Young at 21:54 hrs on . SITE ID: [id number]
[2017-09-18] MEDS ORDERED: ENOXAPARIN 40 MG/0.4 ML SYRINGE SUBQ SCH (23:00)
--- NOTE | 2017-09-18 23:09 | ED Physician Documentation ---
ED Addendum - Addendum Addendum: Called to the ICU to place a central line in this patient. R IJ placed, good blood return in all ports. No line complications on CXR. Procedures - Central Line Central Line Preparation: Unable to obtain consent (patient intubated) Central line location: Right IJ Central line type: Triple lumen Central line aftercare: Chlorhexidine disc placed, Secured, Placement confirmed , No pneumothorax, No complications, Bundle checklist complete, Pt tolerated well
[2017-09-18] MEDS: lamoTRIgine 100 MG TABLET PO SCH (23:21)
[2017-09-18 23:35] LABS: ABG BASE EXCESS -4.5 mmol/L (-2.0-3.0); ABG HCO3 27.8 mmol/L (22.0-26.0); ABG OXYGEN SATURATION 99 % (94-98); ABG TCO2 30.6 MMOL/L (21.0-29.0); ALLEN TEST POSITIVE
[2017-09-18 23:39] LABS: ABG PCO2 89 mmHg (34-45); ABG PH 7.11 (7.35-7.45); ABG PO2 322 mmHg (80-100)
[2017-09-18] MEDS: CHLORHEXIDINE GLUCONATE 15 ML UDC PO SCH (23:52)
[2017-09-19] MEDS ORDERED: AMPICILLIN/SULBACTAM 3 GM in SODIUM CHLORIDE 0.9% MINIBAG 100 ML IV SCH ×2
--- NOTE | 2017-09-19 00:20 | XRAY Report ---
EXAM: CHEST RADIOGRAPHY EXAM DATE: 09/18/2017 11:26 PM. CLINICAL HISTORY: Verify ET position after pulled back 2 cm. Central catheter placement. COMPARISON: Earlier same day x-ray and CT. TECHNIQUE: 1 view. FINDINGS: Support devices: Endotracheal tube tip about 3 cm above the vesta. Enteric tube tip in the stomach. Right central catheter tip in the lower third SVC. Lungs/Pleura: Mild bilateral opacities are grossly stable. Low volumes. No gross pneumothorax. No inc reasing effusion. Mediastinum: Stable heart size. No mediastinal shift. Other: None. IMPRESSION: 1. Support devices as above. 2. Mild bilateral opacities are grossly stable. 3. Low lung volumes. [facility] Referring Provider Line: [phone] SITE ID: [id number]
--- NOTE | 2017-09-19 00:20 | XRAY Preliminary Report ---
Exam: XR CHEST 1 VIEW X-RAY IMPRESSION: 1. Support devices as above. 2. Mild bilateral opacities are grossly stable. 3. Low lung volumes. [facility] SITE ID: [id number]
[2017-09-19] MEDS: PROPOFOL 1000 MG/100 ML 100 ML IV SCH ×9 (00:53→22:27)
[2017-09-19] MEDS: LACTATED RINGERS 1,000 ML IV SCH ×3 (00:53→21:35)
[2017-09-19] MEDS: methylPREDNISolone SUCCINATE 40 MG/ML VIAL IVP SCH ×5 (00:53→23:45)
[2017-09-19] MEDS: SODIUM CHLORIDE FLUSH 0.9% 10 ML SYRINGE IVP SCH ×4 (00:55→23:45)
[2017-09-19] MEDS: MEROPENEM 1 GM in SODIUM CHLORIDE 0.9% MINIBAG 100 ML IV SCH ×3 (02:03→17:20)
[2017-09-19] MEDS: MORPHINE 2 MG/ML SYRINGE IVP PRN ×6 (03:00→20:25)
[2017-09-19 06:01] LABS: BASOPHILS % (AUTO) 0.1 %; EOSINOPHILS # (AUTO) 0.1 10^3/uL (0.0-0.7); EOSINOPHILS % (AUTO) 0.3 %; HGB - HEMOGLOBIN 14.4 g/dL (12.0-16.0); LYMPHOCYTES # (AUTO) 1.4 10^3/uL (1.5-3.5); MEAN CORPUSCULAR HEMOGLOBIN 31.1 pg (27.0-31.0); MEAN CORPUSCULAR HGB CONC 33.4 g/dL (32.0-36.0); MEAN PLATELET VOLUME 8.3 fL (7.9-10.8); MONOCYTES # (AUTO) 1.6 10^3/uL (0.0-1.0); MONOCYTES % (AUTO) 8.1 %; NEUTROPHILS # (AUTO) 16.6 10^3/uL (1.5-6.6); NEUTROPHILS % (AUTO) 84.5 %; PLT - PLATELET COUNT 191 10^3/uL (130-450); RED BLOOD COUNT 4.64 10^6/uL (4.20-5.40); RED CELL DISTRIBUTION WIDTH 13.8 % (12.0-15.0); WHITE BLOOD COUNT 19.6 x10^3/uL (4.8-10.8)
[2017-09-19 06:06] LABS: CALCIUM 8.2 mg/dL (8.5-10.3); MAGNESIUM 3.4 mg/dL (1.7-2.8)
[2017-09-19 07:29] LABS: ABG PH 7.22 (7.35-7.45)
[2017-09-19 07:30] LABS: ABG BASE EXCESS 0.3 mmol/L (-2.0-3.0); ABG HCO3 30.6 mmol/L (22.0-26.0); ABG OXYGEN SATURATION 98 % (94-98); ABG PO2 130 mmHg (80-100); ALLEN TEST POSITIVE
[2017-09-19 07:34] LABS: ABG PCO2 77 mmHg (34-45)
[2017-09-19] MEDS: LORazepam 2 MG/ML VIAL IVP PRN ×6 (08:08→20:25)
[2017-09-19] MEDS: ENOXAPARIN 40 MG/0.4 ML SYRINGE SUBQ SCH (08:44)
[2017-09-19] MEDS: PANTOPRAZOLE 40 MG VIAL IVP SCH (08:44)
[2017-09-19] MEDS: CHLORHEXIDINE GLUCONATE 15 ML UDC PO SCH ×2 (08:53→21:35)
[2017-09-19] MEDS ORDERED: DESVENLAFAXINE SUCCINATE 25 MG PO SCH (09:00)
[2017-09-19] MEDS: ALBUTEROL NEB 2.5 MG/3 ML INH PRN ×4 (09:39→20:47)
[2017-09-19] MEDS: lamoTRIgine 100 MG TABLET PO SCH ×2 (09:56→21:36)
[2017-09-19] MEDS ORDERED: VANCOMYCIN INJ 1.5 GM in SODIUM CHLORIDE 0.9% 500 ML IV SCH ×2 (10:00→10:20)
[2017-09-19] MEDS ORDERED: VANCOMYCIN PER PHARMACY 100 GM in SODIUM CHLORIDE 0.9% 250 ML IV SCH (10:00)
[2017-09-19 10:11] LABS: ABG HCO3 28.1 mmol/L (22.0-26.0); ABG PCO2 57 mmHg (34-45); ABG PH 7.31 (7.35-7.45); ABG PO2 82 mmHg (80-100); ABG TCO2 29.9 MMOL/L (21.0-29.0)
[2017-09-19 10:12] LABS: ABG BASE EXCESS 0.6 mmol/L (-2.0-3.0); ABG OXYGEN SATURATION 96 % (94-98); ALLEN TEST POSITIVE
--- NOTE | 2017-09-19 10:17 | XRAY Report ---
FRONTAL CHEST: 09/19/2017. COMPARISON: Frontal chest 09/18/2017. INDICATION: Followup aspiration pneumonia. TECHNIQUE: Frontal chest view. FINDINGS: Endotracheal tube, tip overlies the level of the clavicles. Feeding tube projects over the left upper quadrant and out of the field of view. Right internal jugular catheter tip overlies the superior vena cava. Unchanged airspace opacity of the right lower lung. No pneumothorax or obvious pleural effusion. IMPRESSION: RIGHT LOWER LUNG AIRSPACE DISEASE. NO APPRECIABLE CHANGE. TD: 09/19/2017 10:16 [facility]
[2017-09-19] MEDS: SODIUM CHLORIDE FLUSH 0.9% 10 ML SYRINGE IVP PRN ×7 (10:49→17:58)
[2017-09-19 14:44] LABS: ABG BASE EXCESS -1.1 mmol/L (-2.0-3.0); ABG HCO3 24.5 mmol/L (22.0-26.0); ABG PCO2 44 mmHg (34-45); ABG PH 7.36 (7.35-7.45); ABG PO2 75 mmHg (80-100); ABG TCO2 25.9 MMOL/L (21.0-29.0)
[2017-09-19 14:45] LABS: ALLEN TEST NEGATIVE
--- NOTE | 2017-09-19 16:17 | PROVIDER PROGRESS NOTE ---
Assessment/Plan - Problem List (1) Respiratory failure Qualifiers: Chronicity: acute Respiratory failure complication: hypoxia Qualified Code(s): J96.01 - Acute respiratory failure with hypoxia Assessment/Plan: Pt now on vent, getting ABGs to help decrease CO2 and she is oxygenating well. Continue vent. care and management, NPO, ng suction, iv stress H2 blockers. (2) Asthma Qualifiers: Asthma severity: severe Asthma complication type: with acute exacerbation Assessment/Plan: No audible wheezing on vent. with PEEP. Continue iv steroids. (3) Aspiration pneumonia due to gastric secretions Assessment/Plan: Antibiotics were changed to Meropenam. Await Sputum culture which shows mostly gram pos. (4) Staphylococcus aureus bacteremia Assessment/Plan: Bacterial culture is already pos for SStaph aureus, NOT methicillin resistant. I will add iv Vanco, pharmcy to adjust the dose based on Ccreat. (5) Bipolar disorder Assessment/Plan: Pt is now off her po psych meds. Continue iv sedation while in vent. (6) Marijuana use Assessment/Plan: Family reports seeing her use this. (7) Altered mental status, unspecified Assessment/Plan: I suspect that Pt was either syncopal or oversedated and aspirated her vomit, causing hypoxia which added to her confusion and altered mental status. The patient has never done this before, per family discussion with me today. I updated her Father, cousin and grandmother today. Pt is still in critical condition. (8) Hepatitis C Assessment/Plan: Minimal increase in LFTs. Continue to monitor. - Current Meds Current Meds: Current Medications Generic Name Dose Route Start Last Admin Trade Name Freq PRN Reason Stop Dose Admin Albuterol 2.5 mg 09/18/17 18:49 09/19/17 09:39 INH 2.5 mg Q4H PRN Administration Wheezing Chlorhexidine Gluconate 15 ml 09/18/17 21:00 09/19/17 08:53 Peridex PO 15 ml BID ALMA Administration Enoxaparin Sodium 40 mg 09/19/17 09:00 09/19/17 08:44 Lovenox SUBQ 40 mg DAILY ALMA Administration Fentanyl 25 mcg 09/18/17 20:23 09/19/17 04:58 Fentanyl IVP 25 mcg Q2HR PRN Administration PAIN Propofol 100 mls @ 4.899 mls/hr 09/18/17 21:00 09/19/17 16:05 Diprivan IV 55 mcg/kg/min .[id number] ALMA 26.944 mls/hr Protocol Titration 10 MCG/KG/MIN Lactated Ringer's 1,000 mls @ 83.333 mls/hr 09/18/17 21:00 09/19/17 16:00 Lr IV 83 mls/hr .Q12H ALMA Infusion Meropenem 1 gm/ Sodium 100 mls @ 200 mls/hr 09/19/17 02:00 09/19/17 10:45 Chloride IV Infused Q8H ALMA Infusion Lamotrigine 100 mg 09/18/17 21:00 09/19/17 09:56 Lamictal PO Not Given BID ALMA Lorazepam 2 mg 09/19/17 09:31 09/19/17 14:18 Ativan Inj (Vial) IVP 2 mg Q2H PRN Administration Anxiety Methylprednisolone 60 mg 09/19/17 06:00 09/19/17 12:26 Solu-Medrol (40mg Vial) IVP 60 mg Q6HR ALMA Administration Morphine Sulfate 2 mg 09/18/17 19:36 09/19/17 14:18 Morphine IVP 2 mg Q2H PRN Administration PAIN Pantoprazole Sodium 40 mg 09/19/17 09:00 09/19/17 08:44 Protonix IVP 40 mg DAILY ALMA Administration Sodium Chloride 10 ml 09/18/17 17:00 09/19/17 08:53 Normal Saline Flush 0.9% IVP 10 ml 0100,0900,1700 ALMA Administration Sodium Chloride 10 ml 09/18/17 15:37 09/19/17 16:09 Normal Saline Flush 0.9% IVP 10 ml PRN PRN Administration NEEDED PER PROVIDER ORDERS - Lab Result Fish Bone Diagrams: 09/20/17 04:45 09/20/17 04:45 - Additional Planning My Orders: My Active Orders 09/18/17 18:49 Albuterol 2.5 mg INH Q4H PRN 09/18/17 19:36 Morphine Inj [Morphine] 2 mg IVP Q2H PRN 09/18/17 19:37 Restraints [RC] Q24H 09/18/17 21:00 lamoTRIgine [LaMICtal] 100 mg PO BID 09/19/17 01:13 CUL, RESPIRATORY [RM] Urgent 09/19/17 07:00 Echo Transthoracic Complete [ECHO] Routine 09/19/17 09:00 Enoxaparin [Lovenox] 40 mg SUBQ DAILY 09/19/17 09:31 LORazepam INJ [Ativan Inj (Vial)] 2 mg IVP Q2H PRN 09/19/17 09:43 RT [Nebulizer/MDI Tx.] [RC] .q4&q6prn 09/19/17 15:57 CK- CREATINE KINASE [CHEM] Routine 09/19/17 18:00 Vancomycin Inj [Vancomycin] 1.5 gm Sodium Chloride 0.9% [Normal Saline 0.9%] 500 ml IV Q8H 09/20/17 09:30 VANCOMYCIN TROUGH [CHEM] Timed Subjective - Subjective Nursing Reports: Other (Pt on ng suction, required intubation overnight for respiratory failure and CO2 retention causing severe acidosis (pH 7.1)) Objective Vital Signs: Vital Signs - 24 hr 09/18/17 09/18/17 09/18/17 16:55 17:00 18:47 Temperature Heart Rate 132 H 121 H 118 H Heart Rate [ Monitoring electrodes] Respiratory 41 H 41 H Rate Blood Pressure 127/99 H Blood Pressure [Right Ankle] Blood Pressure [Right Brachial artery] O2 Saturation 97 09/18/17 09/18/17 09/18/17 20:00 21:00 21:45 Temperature 37.0 C Heart Rate 123 H Heart Rate [ 127 H 125 H Monitoring electrodes] Respiratory 36 H 24 Rate Blood Pressure Blood Pressure [Right Ankle] Blood Pressure 216/203 H 105/85 H [Right Brachial artery] O2 Saturation 95 96 09/18/17 09/18/17 09/18/17 22:00 23:00 23:41 Temperature Heart Rate 125 H Heart Rate [ 122 H 129 H Monitoring electrodes] Respiratory 20 20 Rate Blood Pressure Blood Pressure [Right Ankle] Blood Pressure 149/90 H 131/86 H [Right Brachial artery] O2 Saturation 96 96 09/19/17 09/19/17 09/19/17 00:00 01:00 01:55 Temperature 36.0 C L Heart Rate 121 H Heart Rate [ 120 H 119 H Monitoring electrodes] Respiratory 20 20 Rate Blood Pressure Blood Pressure [Right Ankle] Blood Pressure 133/95 H 132/96 H [Right Brachial artery] O2 Saturation 95 92 05/02/2709/19/17 09/19/17 02:00 03:00 03:52 Temperature Heart Rate 118 H Heart Rate [ 120 H 119 H Monitoring electrodes] Respiratory 26 H 26 H Rate Blood Pressure Blood Pressure [Right Ankle] Blood Pressure 126/93 H 143/94 H [Right Brachial artery] O2 Saturation 93 94 09/19/17 09/19/17 09/19/17 04:00 05:00 06:00 Temperature 36.7 C Heart Rate Heart Rate [ 118 H 117 H 117 H Monitoring electrodes] Respiratory 24 21 22 Rate Blood Pressure Blood Pressure [Right Ankle] Blood Pressure 144/78 H 140/90 H 130/82 H [Right Brachial artery] O2 Saturation 95 94 94 09/19/17 09/19/17 09/19/17 06:20 07:00 07:33 Temperature Heart Rate 118 H Heart Rate [ 117 H 114 H Monitoring electrodes] Respiratory 24 22 Rate Blood Pressure Blood Pressure [Right Ankle] Blood Pressure 127/80 127/80 [Right Brachial artery] O2 Saturation 94 95 09/19/17 09/19/17 09/19/17 07:39 08:00 09:00 Temperature 37.2 C 37 C Heart Rate 116 H Heart Rate [ 115 H 117 H Monitoring electrodes] Respiratory 20 22 Rate Blood Pressure Blood Pressure 121/94 H 133/76 H [Right Ankle] Blood Pressure [Right Brachial artery] O2 Saturation 92 93 09/19/17 09/19/17 09/19/17 09:44 10:00 10:59 Temperature 37 C Heart Rate 118 H 109 H Heart Rate [ 111 H Monitoring electrodes] Respiratory 22 22 Rate Blood Pressure Blood Pressure 124/78 [Right Ankle] Blood Pressure [Right Brachial artery] O2 Saturation 92 09/19/17 09/19/17 09/19/17 11:00 12:00 13:00 Temperature 37.1 C 37.4 C 36.7 C Heart Rate Heart Rate [ 108 H 107 H 106 H Monitoring electrodes] Respiratory 22 22 22 Rate Blood Pressure Blood Pressure 122/79 119/63 122/74 [Right Ankle] Blood Pressure [Right Brachial artery] O2 Saturation 93 93 93 09/19/17 09/19/17 09/19/17 13:52 14:00 15:00 Temperature 37.4 C 37.8 C H Heart Rate 111 H Heart Rate [ 106 H 108 H Monitoring electrodes] Respiratory 22 20 20 Rate Blood Pressure Blood Pressure 130/70 126/69 [Right Ankle] Blood Pressure [Right Brachial artery] O2 Saturation 93 93 09/19/17 09/19/17 16:00 16:13 Temperature 37.6 C H Heart Rate 407 H Heart Rate [ 108 H Monitoring electrodes] Respiratory 22 Rate Blood Pressure Blood Pressure 122/79 [Right Ankle] Blood Pressure [Right Brachial artery] O2 Saturation 93 Oxygen O2 Source Mechanical ventilator I&O (Last 24 Hrs): Intake and Output Totals x24h 09/17/17 09/18/17 09/19/17 23:59 23:59 23:59 Intake Total 489.000 4500.039 Output Total 1134 Balance 117.177 4658.039 General: Other (Intubated and sedated.) HEENT: Mucous membr. moist/pink, Other (Ng tube draining brown liquid.) Neck: Supple Neuro: Other (Sedated) Cardiovascular: Regular rate, No murmurs Respiratory: Breath sounds nml Abdomen: Other (Obese, decreased bowel sounds.) Extremities: No edema - Results Results: Laboratory Results WBC 19.6 x10^3/uL (4.8-10.8) H 09/19/17 04:50 RBC 4.64 10^6/uL (4.20-5.40) 09/19/17 04:50 Hgb 14.4 g/dL (12.0-16.0) 09/19/17 04:50 Hct 43.1 % (37.0-47.0) 09/19/17 04:50 MCV 93.0 fL (81.0-99.0) 09/19/17 04:50 MCH 31.1 pg (27.0-31.0) H 09/19/17 04:50 MCHC 33.4 g/dL (32.0-36.0) 09/19/17 04:50 RDW 13.8 % (12.0-15.0) 09/19/17 04:50 Plt Count 191 10^3/uL (130-450) 09/19/17 04:50 MPV 8.3 fL (7.9-10.8) 09/19/17 04:50 Neut # 16.6 10^3/uL (1.5-6.6) H 09/19/17 04:50 Lymph # 1.4 10^3/uL (1.5-3.5) L 09/19/17 04:50 [place] # 1.6 10^3/uL (0.0-1.0) H 09/19/17 04:50 Eos # 0.1 10^3/uL (0.0-0.7) 09/19/17 04:50 Baso # 0.0 10^3/uL (0.0-0.1) 09/19/17 04:50 Absolute Nucleated RBC 0.01 x10^3/uL 09/19/17 04:50 Total Counted 100 09/18/17 12:02 Band Neuts % (Manual) 48 % (0-10) H 09/18/17 12:02 Reactive Lymphs % (Man) 2 % 09/18/17 12:02 Abnorm Lymph % (Manual) 0 % 09/18/17 12:02 Metamyelocytes % 8 % (-0) H 09/18/17 12:02 Nucleated RBC % 0.1 /100WBC 09/19/17 04:50 Neutrophils # (Manual) 16.6 10^3/uL (1.5-6.6) H 09/18/17 12:02 Lymphocytes # (Manual) 2.2 10^3/uL (1.5-3.5) 09/18/17 12:02 Monocytes # (Manual) 1.5 10^3/uL (0.0-1.0) H 09/18/17 12:02 Eosinophils # (Manual) 0.0 10^3/uL (0-0.7) 09/18/17 12:02 Basophils # (Manual) 0.0 10^3/uL (0-0.1) 09/18/17 12:02 Differential Comment MANUAL DIFFERENTIAL 09/18/17 12:02 WBC Morphology 2+ VACUOLATION (NORMAL) 1+ DOHLE BODIES (NORMAL) 09/18/17 12:02 WBC Morphology 2+ VACUOLATION (NORMAL) 1+ DOHLE BODIES (NORMAL) 09/18/17 12:02 PT 13.7 secs (9.9-12.6) H 09/18/17 12:02 INR 1.2 (0.8-1.2) 09/18/17 12:02 Bld Gas Analysis Time 1424 09/19/17 14:24 Sample Site RIGHT RADIAL 09/19/17 14:24 ABG pH 7.36 (7.35-7.45) 09/19/17 14:24 ABG pCO2 44 mmHg (34-45) 09/19/17 14:24 ABG pO2 75 mmHg (80-100) L 09/19/17 14:24 ABG HCO3 24.5 mmol/L (22.0-26.0) 09/19/17 14:24 ABG Total CO2 25.9 MMOL/L (21.0-29.0) 09/19/17 14:24 ABG O2 Saturation 96 % (94-98) 09/19/17 10:00 ABG Oximetry Spot Check 94 % 09/19/17 07:22 ABG Base Excess -1.1 mmol/L (-2.0-3.0) 09/19/17 14:24 Silvano Test NEGATIVE 09/19/17 14:24 Respiration Rate 22 b/min 09/19/17 14:24 O2 Delivery Device VENTILATOR 09/19/17 14:24 O2 Liters/Min 12.00 LPM 09/18/17 12:15 Vent Mode ACCESSED/CONTROL 09/19/17 14:24 FiO2 60.00 09/19/17 14:24 Tidal Volume 500 mL 09/19/17 14:24 PEEP 5 cmH2O 09/19/17 14:24 Sodium 140 mmol/L (135-145) 09/19/17 04:50 Potassium 4.7 mmol/L (3.5-5.0) 09/19/17 04:50 Chloride 102 mmol/L (101-111) 09/19/17 04:50 Carbon Dioxide 30 mmol/L (21-32) 09/19/17 04:50 Anion Gap 8.0 (6-13) 09/19/17 04:50 BUN 29 mg/dL (6-20) H 09/19/17 04:50 Creatinine 1.0 mg/dL (0.4-1.0) 09/19/17 04:50 Estimated GFR (MDRD) 63 (>89) L 09/19/17 04:50 Glucose 185 mg/dL (70-100) H 09/19/17 04:50 Lactic Acid 1.8 mmol/L (0.5-2.2) 09/19/17 00:45 Calcium 8.2 mg/dL (8.5-10.3) L 09/19/17 04:50 Magnesium 3.4 mg/dL (1.7-2.8) H 09/19/17 04:50 Total Bilirubin 1.0 mg/dL (0.2-1.0) 09/18/17 12:02 AST 102 IU/L (10-42) H 09/18/17 12:02 ALT 91 IU/L (10-60) H 09/18/17 12:02 Alkaline Phosphatase 103 IU/L (42-121) 09/18/17 12:02 Total Creatine Kinase 770 IU/L (22-269) H 09/19/17 00:45 Troponin I 0.10 ng/mL (<0.49) 09/19/17 00:45 B-Natriuretic Peptide 84 pg/mL (5-100) 09/18/17 12:02 Total Protein 7.6 g/dL (6.7-8.2) 09/18/17 12:02 Albumin 3.5 g/dL (3.2-5.5) 09/18/17 12:02 Serum HCG, Qual NEGATIVE 09/18/17 12:02 Urine Opiates Screen POSITIVE (NEGATIVE) H 09/18/17 20:35 Ur Oxycodone Screen NEGATIVE (NEGATIVE) 09/18/17 20:35 Urine Methadone Screen NEGATIVE (NEGATIVE) 09/18/17 20:35 Ur Propoxyphene Screen NEGATIVE (NEGATIVE) 09/18/17 20:35 Ur Barbiturates Screen NEGATIVE (NEGATIVE) 09/18/17 20:35 Ur Tricyclics Screen POSITIVE (NEGATIVE) H 09/18/17 20:35 Ur Phencyclidine Scrn NEGATIVE (NEGATIVE) 09/18/17 20:35 Ur Amphetamine Screen NEGATIVE (NEGATIVE) 09/18/17 20:35 U Methamphetamines Scrn NEGATIVE (NEGATIVE) 09/18/17 20:35 U Benzodiazepines Scrn NEGATIVE (NEGATIVE) 09/18/17 20:35 Urine Cocaine Screen NEGATIVE (NEGATIVE) 09/18/17 20:35 U Cannabinoids Screen POSITIVE (NEGATIVE) H 09/18/17 20:35
[2017-09-19] MEDS: VANCOMYCIN INJ 1.5 GM in SODIUM CHLORIDE 0.9% 500 ML IV SCH (17:25)
[2017-09-19] MEDS ORDERED: fentaNYL 2,500 MCG in SODIUM CHLORIDE 0.9% 200 ML IV SCH (21:00)
[2017-09-19] MEDS ORDERED: cloNIDine 0.3 MG PATCH TOP SCH (21:00)
[2017-09-19] MEDS ORDERED: DEXTROSE 5% IV SCH (22:00)
[2017-09-19] MEDS ORDERED: LORazepam 2 MG/ML VIAL IVP SCH (22:00)
[2017-09-19] MEDS ORDERED: LORAZEPAM IV SCH (22:00)
--- NOTE | 2017-09-19 22:09 | HISTORY & PHYSICAL EXAMINATION ---
DATE OF SERVICE: 09/18/2017 Physician: Aline White MD HISTORY OF PRESENT ILLNESS: This is a 36-year-old white female with history of obesity, asthma on nebulizers, bipolar disorder on multiple medications and on SSI because of this disability, history of hepatitis C. The patient was seen at this emergency room the previous day for an asthmatic attack with wheezing and shortness of breath, received nebulizers, stabilized and was able to be discharged. Her cousin and grandmother, who are her closest helpers, called her to offer their assistance in picking up pharmacy medications, but she did not answer her phone. The two family members went to her house and found her to be nearly comatose, awoke confused and refusing their help, repeating herself, undressed from the waist down sitting in her BM on the floor, very short of breath and appeared cyanotic. 911 was called by the family members and EMS found the patient to have a saturation in the 70% range and nearly unconscious, brought her to the emergency room where she had similar mental status. She became more awake with respiratory treatments of multiple nebulizers, IV steroids, Ativan for anxiety and supplemental oxygen with scalating orders and eventually BiPAP. She was able to tolerate BiPAP for short periods of time, but became anxious and would take off the mask. She finally was improved with morphine and Ativan treatments and is being admitted to the ICU on BiPAP for respiratory distress. PAST MEDICAL HISTORY 1. Obesity. 2. Asthma. 3. Bipolar disorder. 4. Prior noncompliance with medications for bipolar disorder. 5. Disability because of her psychiatric condition. 6. Hepatitis C. ALLERGIES 1. TRAMADOL. 2. PENICILLIN. MEDICATIONS 1. Ventolin inhaler. 2. Albuterol inhaler. 3. Clonazepam 1 mg t.i.d. 4. Venlafaxine 125 mg daily. 5. Motrin 800 mg p.r.n. pain. 6. Lamictal 100 mg b.i.d. (for psychiatric treatment, not seizures). 7. Latuda 40 mg daily. 8. Medroxyprogesterone 115 mg IM, unknown frequency. 9. Singulair 10 mg daily. 10. Seroquel 400 mg every p.m. FAMILY HISTORY: No inherited diseases according to the cousin and the grandmother. SOCIAL HISTORY: The patient does not smoke cigarettes, she does smoke marijuana or use marijuana lozenges, but no other illicit drugs. The patient does not drink alcohol. The patient lives alone and is supported with [facility], does not drive a car. REVIEW OF SYSTEMS: This was obtained from speaking to the two family members as the patient was somnolent. The relatives report that she has a very difficult personality to deal with, often very much attacking people who even are trying to help her. The patient lives with a dog who was seen to be eating the patient's stool on the floor. The patient has had a recent cough, but no fever. No other pertinent positives were given by the family members in a 10-point review of systems. PHYSICAL EXAMINATION GENERAL: Obese white female. She is semi lucid intermittently, then somnolent and when she awakens, she tries to pull off her BiPAP mask and also push people away. VITAL SIGNS: Blood pressure 216/203, which could have been an error because one hour later it was 105/85, then again an hour later 149/90, heart rate 120 in sinus tachycardia , afebrile, saturation on BiPAP 95% with FiO2 of 80%. HEENT: Reveals the BiPAP mask and dry oral mucosa. NECK: Obese. I cannot rule out JVD. No carotid bruits. LUNGS: Chest has diffusely poor air movement and scattered wheezes. ABDOMEN: Obese with decreased bowel sounds. HEART: Sounds are distant and tachycardic. No audible murmur or gallop. EXTREMITIES: Show trace to 1+ pretibial edema. No clubbing or cyanosis. NEUROLOGIC: Obtunded, no focal signs. LABORATORY DATA: Sodium 132, potassium 4.1, normal BUN and creatinine. Lactic acid 2.4, AST 102, ALT 91, alkaline phosphatase 103. BNP 84. Serum hCG negative. INR normal. White blood count 22 with a left shift including 48% bands, hemoglobin 15.5, platelet count normal at 177. Toxicology showed positive opiates, tricyclics and marijuana. Blood gas showed a pH of 7.33, pCO2 45, pO2 of 86. CHEST X-RAY: Bilateral opacities and pulmonary edema. CHEST CTA: Showed no aortic aneurysm or dissection, no pulmonary embolism up to the proximal segment, multilobar patchy airspace disease consistent with pneumonia and suspicious for aspiration, and bilateral mediastinal and hilar lymphadenopathy, probably reactive. IMPRESSION/DIAGNOSES 1. Acutely altered mental status, over-sedated versus syncope at home, unwitnessed. 2. Asthmatic exacerbation with hypoxia and respiratory distress. 3. Aspiration pneumonia. 4. Bipolar disorder. 5. Hepatitis C history with elevated liver function tests. PLAN: Admit the patient to the ICU for respiratory management aggressively with RT, watch for fatigue, respiratory failure and need for intubation, follow ABGs. Obtain sputum and blood cultures and start the patient on empiric treatment for an aspiration pneumonia using Unasyn. Begin Ativan IV, morphine IV p.r.n. and soft wrist restraints for gentle sedation, not over sedation unless she is intubated. Follow her electrolytes, CBC, vent. protocol. DEEP VENOUS THROMBOSIS PROPHYLAXIS: Lovenox. CODE STATUS: FULL CODE. ATTESTATION: The patient is expected to be discharged or transferred to another facility within 96 hours: Yes. TD: 09/19/2017 22:08 JACKIE
[2017-09-20] MEDS: LACTATED RINGERS 1,000 ML IV SCH ×3 (01:01→13:34)
[2017-09-20] MEDS: PROPOFOL 1000 MG/100 ML 100 ML IV SCH ×4 (01:03→12:45)
[2017-09-20] MEDS: MEROPENEM 1 GM in SODIUM CHLORIDE 0.9% MINIBAG 100 ML IV SCH ×2 (01:04→10:22)
[2017-09-20] MEDS: ALBUTEROL NEB 2.5 MG/3 ML INH PRN ×3 (01:47→12:10)
[2017-09-20] MEDS: VANCOMYCIN INJ 1.5 GM in SODIUM CHLORIDE 0.9% 500 ML IV SCH ×2 (01:57→10:42)
[2017-09-20 04:42] LABS: ABG HCO3 32.7 mmol/L (22.0-26.0); ABG OXYGEN SATURATION 97 % (94-98); ABG PCO2 54 mmHg (34-45); ABG PO2 98 mmHg (80-100); ALLEN TEST POSITIVE
[2017-09-20 05:35] LABS: BASOPHILS % (AUTO) 0.3 %; EOSINOPHILS % (AUTO) 0.1 %; HGB - HEMOGLOBIN 11.7 g/dL (12.0-16.0); LYMPHOCYTES # (AUTO) 1.4 10^3/uL (1.5-3.5); LYMPHOCYTES % (AUTO) 10.1 %; MEAN CORPUSCULAR HEMOGLOBIN 30.9 pg (27.0-31.0); MEAN CORPUSCULAR HGB CONC 33.9 g/dL (32.0-36.0); MEAN CORPUSCULAR VOLUME 91.1 fL (81.0-99.0); MEAN PLATELET VOLUME 8.3 fL (7.9-10.8); MONOCYTES # (AUTO) 1.1 10^3/uL (0.0-1.0); NEUTROPHILS # (AUTO) 11.5 10^3/uL (1.5-6.6); NEUTROPHILS % (AUTO) 81.5 %; PLT - PLATELET COUNT 193 10^3/uL (130-450); RED BLOOD COUNT 3.78 10^6/uL (4.20-5.40); WHITE BLOOD COUNT 14.2 x10^3/uL (4.8-10.8)
[2017-09-20 05:51] LABS: ALBUMIN 2.7 g/dL (3.2-5.5); ALBUMIN/GLOBULIN RATIO 0.8 (1.0-2.2); ALKALINE PHOSPHATASE 74 IU/L (42-121); ALT ALANINE AMINOTRANSFERASE 51 IU/L (10-60); AST ASPARTATE AMINOTRANSFERASE 51 IU/L (10-42); BUN - BLOOD UREA NITROGEN 42 mg/dL (6-20); CARBON DIOXIDE - CO2 30 mmol/L (21-32); CHLORIDE 104 mmol/L (101-111); CREATININE 0.7 mg/dL (0.4-1.0); GFR - MDRD 95 (>89); GLUCOSE 250 mg/dL (70-100); MAGNESIUM 3.7 mg/dL (1.7-2.8); PHOSPHORUS 1.1 mg/dL (2.5-4.6); SODIUM 141 mmol/L (135-145); TOTAL PROTEIN 6.3 g/dL (6.7-8.2)
[2017-09-20 06:04] LABS: VBG PH 7.382 (7.31-7.41)
[2017-09-20] MEDS: methylPREDNISolone SUCCINATE 40 MG/ML VIAL IVP SCH ×2 (06:31→11:49)
[2017-09-20 06:33] LABS: HB2 TOTAL 13.1 g/dL; HEMOGLOBIN A1C 0.59 g/dL; HEMOGLOBIN A1C % 6.3 % (4.6-6.2)
[2017-09-20] MEDS ORDERED: POTASSIUM PHOSPHATE 21 MMOL in SODIUM CHLORIDE 0.9% 250 ML IV ONE (08:00)
[2017-09-20] MEDS: lamoTRIgine 100 MG TABLET PO SCH (09:32)
[2017-09-20] MEDS: PANTOPRAZOLE 40 MG VIAL IVP SCH (09:32)
[2017-09-20] MEDS: SODIUM CHLORIDE FLUSH 0.9% 10 ML SYRINGE IVP SCH ×2 (09:32→11:49)
[2017-09-20] MEDS: CHLORHEXIDINE GLUCONATE 15 ML UDC PO SCH (09:58)
[2017-09-20] MEDS: ENOXAPARIN 40 MG/0.4 ML SYRINGE SUBQ SCH (09:59)
[2017-09-20 10:07] LABS: VANCOMYCIN,TROUGH 17.9 ug/mL (5.0-15.0)
--- NOTE | 2017-09-20 11:24 | XRAY Report ---
FRONTAL CHEST: 09/20/2017 COMPARISON: Frontal chest 09/19/2017. INDICATION: Followup aspiration pneumonia. TECHNIQUE: One view. FINDINGS: There is persistent focal consolidation of the right lower lung, slightly denser than the prior exam. There is more conspicuous bilateral perihilar airspace disease. No pneumothorax or obvious pleural effusion. Mediastinum otherwise unremarkable. Right IJ catheter tip overlies the superior vena cava. Endotracheal tube tip at the level of clavicles or just below. NG tube overlies the left upper quadrant. IMPRESSION: 1. SLIGHTLY DENSER APPEARANCE OF RIGHT LOWER LOBE CONSOLIDATION. 2. MORE CONSPICUOUS BILATERAL PERIHILAR AIRSPACE DISEASE MAY BE FLUID RELATED OR DUE TO CHF, ALTHOUGH THERE IS NO CARDIOMEGALY. CORRELATE CLINICALLY. FOLLOWUP IS RECOMMENDED. TD: 09/20/2017 11:22 MTDD
[2017-09-20] MEDS ORDERED: INSULIN REGULAR HUMAN 100 UNIT/1 ML 10 ML MDV SUBQ SCH (12:00)
[2017-09-20 12:12] VITALS: BP 123/65
[2017-09-20] MEDS: LORazepam 2 MG/ML VIAL IVP PRN (14:00)
--- NOTE | 2017-09-24 11:44 | DISCHARGE SUMMARY ---
Physician: Aline White MD DATE OF ADMISSION: 09/18/2017 DATE OF DISCHARGE: 09/20/2017 She was transferred to [facility] ICU under the care of Dr. Red De Anda on 09/20/17. HISTORY OF PRESENT ILLNESS: This is a 36-year-old white female with a history of obesity, borderline personality disorder, possible drug abuse, history of hepatitis C, history of asthma. The patient had an asthma exacerbation for which she was seen in the emergency room, received nebulizer treatment and discharged. The family tried to call her following that and could not reach her by phone, went to her residence where they found her to be semicomatose, confused, repeating phrases, undressed from the waist down, sitting on the floor in her stool and appeared cyanotic. 911 was called and the EMS found her to be confused and have an O2 saturation in the 70% range. She was brought in by ambulance and continued to have respiratory distress and confusion, received IV fluids plus several nebulizers, IV steroids and had some improvement in mentation, but was unable to speak or give a clear history. She required escalating doses of supplemental oxygen, including BiPAP and was admitted to the ICU. Several hours later, she had further respiratory distress and failure and required intubation. HOSPITAL COURSE/DISCHARGE DIAGNOSES 1. Respiratory failure requiring intubation. The patient required sedation, IV paralytic agents in order to not fight the ventilator on assist control settings. Her workup revealed that she had consolidation in bilateral areas on multiple locations on CXR and airway suctioning revealed food particles, as well as gastric secretions. The patient was placed on empiric antibiotics for aspiration pneumonia with IV Zithromax, IV clindamycin, IV Unasyn, IV meropenem and IV vancomycin. 2. Adult respiratory distress syndrome (ARDS). The patient's chest x-ray worsened on 09/20/2017, and even 48 hours after admission, food particles were still being suctioned from her airway. For this reason, transfer was requested to a higher level of care for bronchoscopy and she was accepted by industrial engineering technician and transferred to [facility] Intensive Care Unit on the ventilator, sedated, via ACLS ambulance. 3. Asthma. The patient has a history of asthma, on several inhalers. There was initial difficulty in clearing her bronchospasm despite the above nebulizers, IV steroids, and supplemental oxygen. 4. Aspiration pneumonia due to gastric secretions. The presumed scenario was that the patient had taken sedatives or narcotics, vomited, and was unable to maintain airway patency and aspirated her contents, adding to her bronchospasm as well as hypoxemia. On blood testing on admission, toxicology showed positive opiates, positive tricyclics and positive marijuana. 5. Staphylococcus aureus bacteremia. The patient had cultures of sputum done that grew Staph aureus and blood cultures were quickly positive growing Staph aureus. This was reported to the accepting physician. She was on antibiotics as in #1. 6. Bipolar disorder. The patient is on several medications and family admitted that she occasionally would come off of these, creating a relapse of her symptoms. They stated that she usually was "mostly depressed", and when she was manic, "she had a very difficult personality to handle." 7. Marijuana use. This was documented by toxicology and confirmed by family. 8. Altered mental status. The exact etiology of the initial confusion when the family found her was unclear, but presumed scenario is as described in #4. Her admission CK was 770, there was the possibility that she had been found down and was developing rhabdomyolysis. 9. Hepatitis C. The patient has a history of this. Blood tests done here showed AST of 102, ALT of 91, bilirubin of 1.0. ALLERGIES 1. TRAMADOL. 2. PENICILLIN. MEDICATIONS AT TIME OF TRANSFER 1. Albuterol inhaler. 2. Clonazepam, which was on hold. 3. Desvenlafaxine, which was on hold. 4. Ibuprofen, on hold. 5. Lamictal, on hold. 6. Latuda, on hold. 7. Depo-Provera, on hold. 8. Singulair, on hold. 9. Seroquel, on hold. 10. She was on several nebulizers, Solu-Medrol, antibiotics as described above , paralytics and sedatives IV. CONDITION AT DISCHARGE: Critical. PHYSICAL EXAMINATION AT DISCHARGE VITAL SIGNS: Blood pressure 123/65, pulse of 81 in sinus rhythm, fever of 37.7 , and mechanically ventilated. HEENT: Revealed the ET tube in place and NG tube draining brown liquid contents. NECK: Obese. CHEST: Clear breath sounds anteriorly. HEART: Sounds distant. No audible murmur. ABDOMEN: Obese, decreased bowel sounds. LEGS: Trace pedal edema. NEUROLOGIC: Paralyzed and sedated. FOLLOWUP: This will be determined after her hospitalization at [facility]. CODE STATUS: FULL CODE. Time required to complete this entire transfer: 60 minutes. TD: 09/24/2017 00:37 MTDKurt
== END 2017-09-20 14:15 | disposition short-term general hospital (02) | DRG 871 ==
LOC: EDUNIT# → ED 10:49 → ICU 15:37
PROVIDERS: ADMIT Internal Medicine; ATTEND Internal Medicine
PROC: 5A1945Z Respiratory Ventilation, 24-96 Consecutive Hours (ICD-10-PCS; principal; 2017-09-18)
PROC: 0BH17EZ Insertion of Endotracheal Airway into Trachea, Via Natural or Artificial Opening (ICD-10-PCS; 2017-09-18)
PROC: 02HV33Z Insertion of Infusion Device into Superior Vena Cava, Percutaneous Approach (ICD-10-PCS; 2017-09-18)
DX: A41.01 Sepsis due to Methicillin susceptible Staphylococcus aureus (principal); J96.01 Acute respiratory failure with hypoxia; J18.1 Lobar pneumonia, unspecified organism; J69.0 Pneumonitis due to inhalation of food and vomit; J15.211 Pneumonia due to Methicillin susceptible Staphylococcus aureus; F43.10 Post-traumatic stress disorder, unspecified; F17.200 Nicotine dependence, unspecified, uncomplicated; Z68.41 Body mass index [BMI] 40.0-44.9, adult; J80 Acute respiratory distress syndrome; M62.82 Rhabdomyolysis; G93.1 Anoxic brain damage, not elsewhere classified; E87.2 Acidosis; J45.51 Severe persistent asthma with (acute) exacerbation; R65.20 Severe sepsis without septic shock; E66.9 Obesity, unspecified; F60.3 Borderline personality disorder; B19.20 Unspecified viral hepatitis C without hepatic coma; F31.9 Bipolar disorder, unspecified; Z88.0 Allergy status to penicillin; Z78.1 Physical restraint status; Z79.899 Other long term (current) drug therapy
CPT/HCPCS: 36415; 36600; 71045; 71275; 80048; 80053; 80306; 82040; 82247; 82330; 82550; 82803; 83036; 83605; 83735; 83880; 84075; 84100; 84155; 84450; 84460; 84484; 84703; 85025; 85610; 87040; 87070; 87150; 87205; 93005; 93306; 94002; 94003; 94640; 94660; 94770; 96372; 96374; 99283; 99284

== ENCOUNTER 2017-09-20 14:18 | Outpatient (CLI) | payer MEDICARE, MEDICAID | END 2017-09-20 14:19 | disposition short-term general hospital (02) | LOC: EMS 14:18 | PROVIDERS: ATTEND Surgery | DX: J69.0 Pneumonitis due to inhalation of food and vomit (principal); R78.81 Bacteremia; B95.8 Unspecified staphylococcus as the cause of diseases classified elsewhere | CPT/HCPCS: A0425; A0426 ==

== ENCOUNTER 2018-03-22 15:01 | Outpatient (CLI) | payer MEDICARE, MEDICAID | END 2018-03-22 15:02 | disposition short-term general hospital (02) | LOC: EMS 15:01 | PROVIDERS: ATTEND Surgery | DX: R06.02 Shortness of breath (principal) | CPT/HCPCS: A0425; A0427; A0888 ==

== ENCOUNTER 2018-04-23 13:28 | Outpatient (CLI) | payer MEDICARE, MEDICAID | END 2018-04-23 13:29 | disposition critical access hospital (66) | LOC: EMS 13:28 | PROVIDERS: ATTEND Surgery | DX: R10.31 Right lower quadrant pain (principal) | CPT/HCPCS: A0425; A0429 ==

== ENCOUNTER 2018-04-23 13:50 | Emergency (ER) | payer MEDICARE, MEDICAID ==
--- NOTE | 2018-04-23 13:55 | ED Physician Documentation ---
PD HPI ABD PAIN - Stated complaint Stated Complaint: ABD PX - History obtained from History obtained from: Patient - History of Present Illness Timing - onset: How many hours ago (about 7 hours ago.), Today Timing - duration: Hours (6-7 hours of right flank pain to right abd, waxing and waning. More severe the past hour.) Timing - details: Abrupt onset, Still present, Waxing and waning Quality: Cramping, Aching, Pain Location: RLQ Radiation: Right flank Improved by: No: Eating, Vomiting, Position Worsened by: No: Eating, Position, Palpation Associated symptoms: Nausea, Vomiting. No: Fever, Diarrhea, Constipation, Dysuria, Vaginal bleeding, Vaginal dc Similar symptoms before: Has not had sx before Recently seen: Not recently seen Review of Systems Constitutional: denies: Fever, Chills Nose: denies: Rhinorrhea / runny nose, Congestion Throat: denies: Sore throat Cardiac: denies: Chest pain / pressure Respiratory: denies: Cough GI: reports: Abdominal Pain, Nausea, Vomiting. denies: Diarrhea : denies: Dysuria, Frequency, Discharge Skin: denies: Rash Neurologic: denies: Generalized weakness, Focal weakness, Numbness, Near syncope PD PAST MEDICAL HISTORY - Past Medical History Cardiovascular: None Respiratory: Asthma Endocrine/Autoimmune: None GI: None [place]: None : None HEENT: None Psych: Bipolar disorder, Post traumatic stress disorder Musculoskeletal: None Derm: None - Past Surgical History Past Surgical History: Yes General: Cholecystectomy, Other Ortho: Knee replacement, Other - Present Medications Home Medications: Ambulatory Orders Medication Instructions Recorded Confirmed Montelukast [Singulair] 10 mg PO DAILY 11/29/15 09/18/17 Albuterol 2.5 mg INH Q4H PRN 09/18/17 09/18/17 Albuterol Sulf [Ventolin Hfa 1 - 2 puffs INH Q4HR PRN 09/18/17 09/18/17 Inhaler] Desvenlafaxine Succinate 25 mg PO DAILY 09/18/17 09/18/17 [Desvenlafaxine Succinate ER] Desvenlafaxine [Desvenlafaxine ER] 100 mg PO DAILY 09/18/17 09/18/17 Ibuprofen 800 mg PO PRN PRN 09/18/17 09/18/17 Ipratropium/Albuterol [Combivent 2 puffs INH Q4H PRN 09/18/17 09/18/17 Respimat] Lurasidone HCl [Latuda] 40 mg PO DAILY 09/18/17 09/18/17 Medroxyprogesterone Acetate 150 mg IM .EVERY 3 MONTHS 09/18/17 09/18/17 [Depo-Provera] Quetiapine Fumarate [Seroquel] 400 mg PO QPM 09/18/17 09/18/17 clonazePAM [Clonazepam] 1 mg PO TID 09/18/17 09/18/17 lamoTRIgine [LaMICtal] 100 mg PO BID 09/18/17 09/18/17 Naproxen 500 mg PO BID #20 tablet 04/23/18 Ondansetron Odt [Zofran] 4 mg TL Q6H PRN #10 tablet 04/23/18 Oxycodone HCl/Acetaminophen 1 - 2 each PO Q6H PRN #25 tablet 04/23/18 [Percocet 5-325 mg Tablet] - Allergies Allergies/Adverse Reactions: Allergies Allergy/AdvReac Type Severity Reaction Status Date / Time tramadol Allergy Rash Verified 08/01/17 07:15 Penicillins AdvReac Intermediate Edema Verified 06/14/15 07:27 - Social History Does the pt smoke?: Yes Smoking Status: Current every day smoker Does the pt drink ETOH?: No Does the pt have substance abuse?: No - Immunizations Immunizations are current?: Yes - POLST Patient has POLST: No PD ED PE NORMAL - Vitals Vital signs reviewed: Yes - General General: Alert and oriented X 3, Well developed/nourished, Other (appears in considerable pain. ) - HEENT HEENT: Pharynx benign - Neck Neck: Supple, no meningeal sign, No adenopathy - Cardiac Cardiac: RRR, No murmur - Respiratory Respiratory: Clear bilaterally - Abdomen Abdomen: Normal bowel sounds, Soft, Non distended, No organomegaly, Other (some tender right abd without percussion nor rebound tenderness. There is right CVA tenderness. No rash nor sores. ) - Female Female : Deferred - Rectal Rectal: Deferred - Back Back: No spinal TTP - Derm Derm: Normal color, Warm and dry - Extremities Extremities: No deformity, No tenderness to palpate - Neuro Neuro: Alert and oriented X 3, No motor deficit, Normal speech - Psych Psych: Normal mood, Normal affect Results - Vitals Vitals: Oxygen O2 Source Room air - Labs Labs: Laboratory Tests 04/23/18 04/23/18 04/23/18 15:03 15:03 15:10 WBC 8.9 RBC 4.68 Hgb 14.5 Hct 41.4 MCV 88.6 MCH 31.0 MCHC 35.0 RDW 14.3 Plt Count 274 MPV 7.5 L Neut # (Auto) 4.4 Lymph # (Auto) 3.2 Henry # (Auto) 1.0 Eos # (Auto) 0.2 Baso # (Auto) 0.1 Absolute Nucleated RBC 0.00 Nucleated RBC % 0.0 Sodium 139 Potassium 4.4 Chloride 111 Carbon Dioxide 24 Anion Gap 4.0 L BUN 7 Creatinine 0.6 Estimated GFR (MDRD) 113 Glucose 94 Calcium 9.0 Total Bilirubin 0.3 AST 43 H ALT 51 Alkaline Phosphatase 121 Total Protein 6.6 L Albumin 3.4 Globulin 3.2 Albumin/Globulin Ratio 1.1 Lipase 21 L Urine Color YELLOW Urine Clarity CLEAR Urine pH 6.5 Ur Specific [place] 1.025 Urine Protein TRACE Urine Glucose (UA) NEGATIVE Urine Ketones NEGATIVE Urine Occult Blood LARGE H Urine Nitrite NEGATIVE Urine Bilirubin NEGATIVE Urine Urobilinogen 0.2 (NORMAL) Ur Leukocyte Esterase NEGATIVE Urine RBC TNTC H Urine WBC 0-3 Ur Squamous Epith Cells MOD Squamous H Urine Bacteria Rare Ur Microscopic Review INDICATED Urine Culture Comments NOT INDICATED Urine HCG, Qual NEGATIVE - Rads (name of study) abd pelvic CT Radiology: Prelim report reviewed (8x10 mm stone at renal pelvis causing intermittent obstruction. Minimal hydro at this time. Else normal on exam. ), EMP read contemporaneously, See rad report PD MEDICAL DECISION MAKING - ED course Complexity details: reviewed results, considered differential, d/w patient Departure - Departure Disposition: 01 Home, Self Care Clinical Impression: Right sided abdominal pain, Right flank pain, Renal calculus or stone Condition: Stable Record reviewed to determine appropriate education?: Yes Instructions: ED Stone Renal W Colic Follow-Up: Suzanna Martin MD [Physician No Access] - Prescriptions: Naproxen 500 mg PO BID #20 tablet Ondansetron Odt [Zofran] 4 mg TL Q6H PRN #10 tablet PRN Reason: Nausea / Vomiting Oxycodone HCl/Acetaminophen [Percocet 5-325 mg Tablet] 1 - 2 each PO Q6H PRN #25 tablet PRN Reason: pain Comments: Continue usual medications. He do have a stone on the right kidney that is just starting to try to pass. However it is large enough that it likely will not pass down the ureter. Call urology office tomorrow and see whichever urologist is next available for follow-up. Sometimes they need to break these up with an ultrasound (a procedure called lithotripsy). Right now it is in a position where will cause irritation and some intermittent swelling of the kidney and would account for some of the blood in your urine. Use naproxen twice daily for inflammation and pain. Ondansetron if needed for nausea. Add Percocet if needed for pain. Return if worsening again. Otherwise follow-up with urology in the next few days. Discharge Date/Time: 04/23/18 16:53
[2018-04-23] MEDS ORDERED: HYDROmorphone 1 MG/ML CARPUJECT IVP STA (14:17)
[2018-04-23] MEDS ORDERED: SODIUM CHLORIDE 0.9% 1,000 ML IV ONE (14:17)
[2018-04-23] MEDS ORDERED: ONDANSETRON 4 MG/2 ML VIAL IVP STA (14:17)
[2018-04-23] MEDS ORDERED: KETOROLAC 60 MG/2 ML VIAL IVP STA (14:19)
[2018-04-23] MEDS ORDERED: KETOROLAC 30 MG/ML VIAL IM STA (14:54)
[2018-04-23] MEDS ORDERED: HYDROmorphone 1 MG/ML CARPUJECT IM STA ×2 (14:54→16:13)
[2018-04-23] MEDS ORDERED: ONDANSETRON ODT 4 MG TABLET TL STA (14:54)
[2018-04-23 15:10] LABS: BASOPHILS # (AUTO) 0.1 10^3/uL (0.0-0.1); BASOPHILS % (AUTO) 1.2 %; EOSINOPHILS # (AUTO) 0.2 10^3/uL (0.0-0.7); EOSINOPHILS % (AUTO) 1.8 %; HGB - HEMOGLOBIN 14.5 g/dL (12.0-16.0); LYMPHOCYTES # (AUTO) 3.2 10^3/uL (1.5-3.5); LYMPHOCYTES % (AUTO) 36.4 %; MEAN CORPUSCULAR VOLUME 88.6 fL (81.0-99.0); MEAN PLATELET VOLUME 7.5 fL (7.9-10.8); MONOCYTES % (AUTO) 10.8 %; NEUTROPHILS # (AUTO) 4.4 10^3/uL (1.5-6.6); NEUTROPHILS % (AUTO) 49.8 %; PLT - PLATELET COUNT 274 10^3/uL (130-450); RED BLOOD COUNT 4.68 10^6/uL (4.20-5.40); RED CELL DISTRIBUTION WIDTH 14.3 % (12.0-15.0); WHITE BLOOD COUNT 8.9 x10^3/uL (4.8-10.8)
[2018-04-23 15:16] LABS: BILIRUBIN,URINE NEGATIVE (NEGATIVE); GLUCOSE, URINE (UA) NEGATIVE (NEGATIVE); KETONES,URINE (UA) NEGATIVE (NEGATIVE); LEUKOCYTE ESTERASE, URINE NEGATIVE (NEGATIVE); NITRITE,URINE NEGATIVE (NEGATIVE); OCCULT BLOOD,URINE LARGE (NEGATIVE); PH,URINE 6.5 PH (5.0-7.5); PROTEIN,URINE TRACE mg/dL (NEGATIVE); UROBILINOGEN,URINE 0.2 (NORMAL) E.U./dL (NORMAL)
[2018-04-23 15:17] LABS: CLARITY,URINE CLEAR (CLEAR)
[2018-04-23 15:20] LABS: HCG UR QUAL NEGATIVE
[2018-04-23 15:22] LABS: ALBUMIN 3.4 g/dL (3.2-5.5); ALBUMIN/GLOBULIN RATIO 1.1 (1.0-2.2); BILIRUBIN,TOTAL 0.3 mg/dL (0.2-1.0); CREATININE 0.6 mg/dL (0.4-1.0); TOTAL PROTEIN 6.6 g/dL (6.7-8.2)
[2018-04-23 15:32] LABS: RBC,URINE TNTC /HPF (0-5); SQUAMOUS EPITHELIAL CELL,UR MOD Squamous (<= Few)
[2018-04-23 15:33] LABS: BACTERIA,URINE Rare /HPF (None Seen)
--- NOTE | 2018-04-23 16:14 | CT Report ---
Reason: right flank and low abd pain onset today Procedure Date: 04/23/2018 Accession Number: [id number] / [id number] Procedure: CT - Abdomen/Pelvis W/O CPT Code: FULL RESULT: EXAM: CT ABDOMEN AND PELVIS EXAM DATE: 04/23/2018 03:57 PM. CLINICAL HISTORY: Right flank and low abdominal pain onset today. COMPARISONS: ABDOMEN/PELVIS W/O 08/01/2017 9:03 AM. TECHNIQUE: Routine helical CT imaging was performed through the abdomen and pelvis. IV contrast: None. Enteric contrast: No. Reconstructions: Coronal and sagittal. In accordance with CT protocol optimization, one or more of the following dose reduction techniques were utilized for this exam: automated exposure control, adjustment of mA and/or KV based on patient size, or use of iterative reconstructive technique. FINDINGS: Lung Bases: New mosaic groundglass opacification both lung bases. Liver: Fatty liver. Gallbladder/Bile Ducts: Cholecystectomy. No biliary duct dilatation. Spleen: Normal. Pancreas: Normal. Adrenal Glands: Stable dystrophic calcification in the markedly atrophied right kidney. Stable 1.3 x 1.8 cm low-density lesion left adrenal, consistent with adenoma. Kidneys: 8 x 10 mm dominant stone mid right renal pelvis. Multiple 3 mm and smaller stones in the right calyceal system. Mild right hydronephrosis and slight right peripelvic edema. Right ureter is tiny without stones. No right renal mass lesion. Several 3 mm and smaller left calyceal stones. Left kidney and left ureter otherwise normal. Peritoneal Cavity/Bowel: Normal. No free fluid, free air or adenopathy. No masses or acute inflammatory process. The appendix is well visualized and normal. Pelvic Organs: Normal. The bladder and visualized pelvic organs are within normal limits. Vasculature: No aneurysms or other significant abnormality. Bones: No significant abnormality. Other: None. IMPRESSION: 1. 8 x 10 mm right renal pelvis stone causing intermittent obstruction at the ureteropelvic junction, currently mild in degree. 2. Bilateral nephrolithiasis. 3. Remote vascular, inflammatory or posttraumatic insult right adrenal. 4. 1.8 x 1.3 cm left adrenal adenoma. 5. Mosaic pattern both lung bases suggesting air trapping. Correlate with any clinical symptoms to determine significance. RADIA
[2018-04-23 16:46] VITALS: BP 125/90
== END 2018-04-23 16:53 | disposition home or self-care (01) ==
LOC: EDUNIT# → ED 13:50
DX: N20.0 Calculus of kidney (principal); D35.02 Benign neoplasm of left adrenal gland; F17.200 Nicotine dependence, unspecified, uncomplicated; R11.2 Nausea with vomiting, unspecified
CPT/HCPCS: 36415; 74176; 80053; 81001; 81025; 83690; 85025; 96372; 99283; 99284; J1170; Q0162; 81003; 87086

== ENCOUNTER 2018-05-20 23:23 | Outpatient (CLI) | payer MEDICARE, MEDICAID | END 2018-05-20 23:24 | disposition short-term general hospital (02) | LOC: EMS 23:23 | PROVIDERS: ATTEND Surgery | DX: R06.00 Dyspnea, unspecified (principal); R05 Cough | CPT/HCPCS: A0425; A0427; A0888 ==

== ENCOUNTER 2018-05-25 00:18 | Outpatient (CLI) | payer MEDICARE, MEDICAID | END 2018-05-25 00:19 | disposition short-term general hospital (02) | LOC: EMS 00:18 | PROVIDERS: ATTEND Surgery | DX: R10.9 Unspecified abdominal pain (principal) | CPT/HCPCS: A0425; A0429; A0888 ==

== ENCOUNTER 2019-03-29 02:46 | Outpatient (CLI) | payer MEDICARE, MEDICAID | END 2019-03-29 02:47 | disposition critical access hospital (66) | LOC: EMS 02:46 | PROVIDERS: ATTEND Surgery | DX: M54.2 Cervicalgia (principal); M54.9 Dorsalgia, unspecified | CPT/HCPCS: A0425; A0429 ==

== ENCOUNTER 2019-03-29 03:07 | Emergency (ER) | payer MEDICARE, MEDICAID ==
[2019-03-29] MEDS ORDERED: HYDROmorphone 1 MG/ML CARPUJECT IM STA (03:21)
[2019-03-29] MEDS ORDERED: KETOROLAC 60 MG/2 ML VIAL IM STA (03:21)
[2019-03-29 03:22] VITALS: BP 121/90
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
--- NOTE | 2019-03-29 04:15 | XRAY Report ---
Reason: dyspnea/ cough for a week Procedure Date: 03/29/2019 Accession Number: [id number] / [id number] Procedure: XR - Chest 2 View X-Ray CPT Code: 86092 Final Report FULL RESULT: EXAM: CHEST RADIOGRAPHY EXAM DATE: 03/29/2019 04:05 AM. CLINICAL HISTORY: Dyspnea/cough for a week. COMPARISON: CHEST 1 VIEW 09/20/2017 8:46 AM THORACIC SPINE W/O 03/29/2019 3:45 AM. TECHNIQUE: 2 views. FINDINGS: Lungs/Pleura: No focal opacities evident. No pleural effusion. No pneumothorax. Normal volumes. Mediastinum: Heart and mediastinal contours are unremarkable. Other: None. IMPRESSION: Negative 2-view chest radiography. RADIA
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
[2019-03-29] MEDS ORDERED: HYDROcod/ACETAM 5/325 MG TABLET PO STA (04:44)
[2019-03-29] MEDS ORDERED: HYDROcod/ACET 5/325 Prepack 4 PO STA (04:44)
[2019-03-29] MEDS ORDERED: ACETAMINOPHEN 325 MG TABLET PO STA (04:44)
[2019-03-29] MEDS ORDERED: diazePAM 5 MG TABLET PO STA (04:44)
[2019-03-29] MEDS ORDERED: IPRATROPIUM/ALBUTEROL 3 ML NEB INH STA (04:47)
== END 2019-03-29 05:16 | disposition home or self-care (01) ==
LOC: EDUNIT# → ED 03:07
DX: S16.1XXA Strain of muscle, fascia and tendon at neck level, initial encounter (principal); S29.019A Strain of muscle and tendon of unspecified wall of thorax, initial encounter; V43.62XA Car passenger injured in collision with other type car in traffic accident, initial encounter; Y92.410 Unspecified street and highway as the place of occurrence of the external cause; J44.9 Chronic obstructive pulmonary disease, unspecified; F17.200 Nicotine dependence, unspecified, uncomplicated
CPT/HCPCS: 71046; 72125; 72128; 94640; 96372; 99284; A9270; J1170

== ENCOUNTER 2019-04-05 09:37 | Outpatient (CLI) | payer MEDICARE, MEDICAID | END 2019-04-05 09:38 | disposition critical access hospital (66) | LOC: EMS 09:37 | PROVIDERS: ATTEND Surgery | DX: R06.02 Shortness of breath (principal); R05 Cough | CPT/HCPCS: A0425; A0427 ==

== ENCOUNTER 2019-04-05 09:57 | Inpatient (IN) | payer MEDICARE, MEDICAID ==
[2019-04-05] MEDS ORDERED: CHERRY SYRUP 10 ML UDC PO ONE (10:13)
[2019-04-05] MEDS ORDERED: IPRATROPIUM/ALBUTEROL 3 ML NEB INH STA (10:13)
[2019-04-05] MEDS ORDERED: DEXAMETHASONE 10 MG/ML VIAL PO STA (10:13)
--- NOTE | 2019-04-05 11:31 | XRAY Report ---
Reason: cough wheezing soa Procedure Date: 04/05/2019 Accession Number: [id number] / [id number] Procedure: XR - Chest 2 View X-Ray CPT Code: 79373 Final Report FULL RESULT: EXAM: CHEST RADIOGRAPHY EXAM DATE: 04/05/2019 11:01 AM. CLINICAL HISTORY: Cough wheezing, short of breath. COMPARISON: CHEST 2 VIEW 03/29/2019 3:49 AM THORACIC SPINE W/O 03/29/2019 3:45 AM. TECHNIQUE: 2 views. FINDINGS: Lungs/Pleura: Mild perihilar airspace opacities and bronchial wall thickening. No large discrete consolidation. No pneumothorax or effusion. Mediastinum: Heart and mediastinal contours are unremarkable. Other: None. IMPRESSION: Bronchial wall thickening and mild perihilar opacities, possibly combination of bronchitis and atelectasis. Correlate to exclude developing pneumonitis/pneumonia. Patient appeared to have some air trapping on recent CT of the thoracic spine and there could be small airways disease as well. RADIA
[2019-04-05] MEDS ORDERED: cefTRIAXone 1 GM VIAL IM STA (12:46)
[2019-04-05] MEDS ORDERED: LIDOCAINE 1% 2 ML VIAL MC ONE (12:46)
[2019-04-05] MEDS ORDERED: ALBUTEROL NEB 2.5 MG/3 ML INH STA (12:46)
[2019-04-05] MEDS ORDERED: BENZONATATE 100 MG CAPSULE PO STA (13:41)
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
[2019-04-05] MEDS ORDERED: guaiFENesin/CODEINE 5 ML UDC PO STA (14:13)
[2019-04-05 15:04] LABS: VBG BASE EXCESS -3.7 mmol/L (-2 - +2); VBG PCO2 35.1 mmHg (41-51); VBG PH 7.385 (7.31-7.41); VBG PO2 50.4 mmHg (25-47); VBG TOTAL CO2 21.6 mmol/L (24-29)
[2019-04-05] MEDS ORDERED: LORazepam 2 MG/ML VIAL IM STA (15:11)
[2019-04-05 15:20] LABS: ALBUMIN 3.6 g/dL (3.2-5.5); CALCIUM 9.2 mg/dL (8.5-10.3); CREATININE 0.9 mg/dL (0.4-1.0); TOTAL PROTEIN 7.3 g/dL (6.7-8.2)
[2019-04-05 15:42] LABS: MUDS CUTOFF CONCENTRATIONS CUTOFF CONC BELOW:
[2019-04-05 15:47] LABS: BILIRUBIN,URINE NEGATIVE (NEGATIVE); GLUCOSE, URINE (UA) NEGATIVE (NEGATIVE); KETONES,URINE (UA) NEGATIVE (NEGATIVE); LEUKOCYTE ESTERASE, URINE NEGATIVE (NEGATIVE); NITRITE,URINE NEGATIVE (NEGATIVE); OCCULT BLOOD,URINE MODERATE (NEGATIVE); PROTEIN,URINE NEGATIVE (NEGATIVE); UROBILINOGEN,URINE 0.2 (NORMAL) E.U./dL (NORMAL)
[2019-04-05 15:57] LABS: CLARITY,URINE CLEAR (CLEAR)
[2019-04-05 16:04] LABS: COCAINE SCREEN URINE NEGATIVE (NEGATIVE); METHAMPHETAMINES SCREEN, URINE NEGATIVE (NEGATIVE); OPIATE SCREEN, URINE POSITIVE (NEGATIVE)
[2019-04-05 16:05] LABS: AMPHETAMINE SCREEN,URINE NEGATIVE (NEGATIVE); BENZODIAZEPINES SCREEN, URINE POSITIVE (NEGATIVE); METHADONE SCREEN, URINE NEGATIVE (NEGATIVE); OXYCODONE SCREEN, URINE NEGATIVE (NEGATIVE); PROPOXYPHENE SCREEN, URINE NEGATIVE (NEGATIVE); TRICYCLIC ANTIDEPRESSANT,URINE POSITIVE (NEGATIVE)
[2019-04-05 16:09] LABS: BASOPHILS # (AUTO) 0.1 10^3/uL (0.0-0.1); BASOPHILS % (AUTO) 0.5 %; EOSINOPHILS % (AUTO) 0.1 %; HGB - HEMOGLOBIN 14.5 g/dL (12.0-16.0); LYMPHOCYTES # (AUTO) 1.2 10^3/uL (1.5-3.5); LYMPHOCYTES % (AUTO) 7.3 %; MEAN CORPUSCULAR HEMOGLOBIN 30.5 pg (27.0-31.0); MEAN CORPUSCULAR HGB CONC 32.7 g/dL (32.0-36.0); MEAN CORPUSCULAR VOLUME 93.3 fL (81.0-99.0); MONOCYTES # (AUTO) 0.9 10^3/uL (0.0-1.0); MONOCYTES % (AUTO) 5.3 %; NEUTROPHILS # (AUTO) 14.4 10^3/uL (1.5-6.6); PLT - PLATELET COUNT 210 10^3/uL (130-450); RED BLOOD COUNT 4.75 10^6/uL (4.20-5.40); RED CELL DISTRIBUTION WIDTH 13.2 % (12.0-15.0); WHITE BLOOD COUNT 16.8 x10^3/uL (4.8-10.8)
[2019-04-05 16:42] LABS: BACTERIA,URINE Few /HPF (None Seen); SQUAMOUS EPITHELIAL CELL,UR RARE Squamous (<= Few)
[2019-04-05] MEDS ORDERED: PROMETHAZINE 25 MG/1 ML VIAL IM STA (16:42)
[2019-04-05] MEDS ORDERED: LORazepam 2 MG/ML VIAL IVP STA (17:56)
[2019-04-05] MEDS ORDERED: PROCHLORPERAZINE 10 MG/2 ML VIAL IVP PRN (18:35)
[2019-04-05] MEDS ORDERED: IPRATROPIUM 0.2 MG/ML NEB INH PRN (18:35)
[2019-04-05] MEDS ORDERED: ACETAMINOPHEN 325 MG TABLET PO PRN (18:35)
[2019-04-05] MEDS ORDERED: methylPREDNISolone SUCCINATE 40 MG/ML VIAL IVP SCH ×2 (19:00→22:00)
--- NOTE | 2019-04-05 20:14 | HISTORY & PHYSICAL EXAMINATION ---
Chief Complaint - Chief Complaint Chief Complaint: Shortness of breath History of Present Illness - Admitted From Admitted From:: Home - History Obtained From Records Reviewed: Yes History obtained from: Patient, EMR, ER Physician Exam Limitations: Respiratory distress - History of Present Illness HPI Comment/Other: This is a 38-year-old female with a past medical history significant for asthma/COPD, chronic hypoxic respirator failure requiring 3 L of oxygen, bipolar disorder, hepatitis C who presents from home complaining of worsening shortness of breath. She reports she had been doing well these past few days up until today. She was cooking in the kitchen when she got frustrated so she went outside to take her dog out. She was sitting on her porch when all of a sudden she passed out and was on the ground. She cannot recall what happened. She reports feeling shortness of breath prior to the event but denies chest pain or palpitations. She was able to get herself back into the house when her neighbors checked in on her and they called 911. When EMS arrived they found her down oxygen saturation and the 70s. The patient stated she not been using her oxygen for the last few days as it was broken. She states she normally wears 3 L of oxygen at rest and 4 L with exertion. She is currently a non-smoke r but does have a prior smoking history but quit 1.5 years ago. She has not vapes in quite a few years. She does have occasional secondhand exposure to smoke as her neighbor does smoke when they visit her. She reports getting the pneumonia vaccine this year but did not get a flu vaccine. She does report subjective fevers, wheezing, nonproductive cough. She does have some nausea but no vomiting. Denies abdominal pain.She has been taking her albuterol without much relief. She reports she is not on any other inhalers just the albuterol. She believes she might of been on a inhaled corticosteroid in the past but this was discontinued after she developed oral thrush and what appears to be an infection of her throat. She reports being intubated over one year ago for nearly 10 days. In the emergency department, she got afebrile with a temperature of 38.2, tachycardic in the 110s, normotensive, tachypnea in the high 20s, saturating 77% on room air. She was given 3 L of oxygen with improvement to 90%. Labs revealed a white count of 16.8 with a left shift. A VBG revealed a pH 7.385. Her lactic acid was elevated at 4. AST and ALT are elevated at 91 and 73 respectively. 2 view chest x-ray showed possible right perihilar atelectasis/bronchitis with possible developing pneumonia. Given her significant hypoxia, [facility] stress medicine was consulted for admission. In the emergency department, she was given Decadron 10 mg p.o., a breathing treatment, Tessalon for her cough. History - Past Medical History Cardiovascular: reports: None Respiratory: reports: Asthma, COPD Neuro: reports: None Endocrine/Autoimmune: reports: None GI: reports: None, Hepatitis (Hepatitis C) [employer]: reports: None : reports: None HEENT: reports: None Psych: reports: Bipolar disorder, Post traumatic stress disorder Musculoskeletal: reports: None Derm: reports: None MRSA Hx?: No - Past Surgical History General: reports: Cholecystectomy, Other Ortho: reports: Knee replacement, Other - Family & Social History Family History: Father: Alcoholism, Asthma Family History Comment/Other: She reports her father was an alcoholic and that he had Asthma. Her grandfather had multiple sclerosis and from congestive heart failure. She reports no other medical history. Living arrangement: At home Living Situation: Alone Social History Notes: She reports living alone with her dog. 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 She does not smoke after quitting 1.5 years ago. She previously smoked about a pack a day for 18 years. She denies alcohol use. She does report occasional marijuana use with the last use being 1 month ago. She denies vaping.She reports a remote history of heroin and meth use but quit over 11 years ago. - POLST Patient has POLST: No Meds/Allgy - Home Medications Home Medications: Ambulatory Orders Medication Instructions Recorded Confirmed Albuterol 2.5 mg INH Q4H PRN 09/18/17 04/05/19 Albuterol Sulf [Ventolin Hfa 2 puffs INH Q4HR PRN 09/18/17 04/05/19 Inhaler] clonazePAM [Clonazepam] 1 mg PO TID 09/18/17 04/05/19 lamoTRIgine [LaMICtal] 100 mg PO BID 09/18/17 04/05/19 Quetiapine Fumarate 500 mg PO QPM 04/05/19 04/05/19 Sertraline HCl 50 mg PO DAILY 04/05/19 04/05/19 - Allergies Allergies/Adverse Reactions: Allergies Allergy/AdvReac Type Severity Reaction Status Date / Time tramadol Allergy Rash Verified 04/05/19 10:21 Penicillins AdvReac Intermediate Edema Verified 04/05/19 10:21 Review of Systems - Constitutional Constitutional: reports: Fatigue, Fever, Malaise, Weakness - Eyes Eyes: denies: Blurred vision - Cardiovascular Cariovascular: reports: Syncope, Exertional dyspnea, Decr. exercise tolerance. denies: Palpitations, Chest pain, Edema - Respiratory Respiratory: reports: Cough, Wheezing, SOB at rest, SOB with exertion. denies: Sputum production - Gastrointestinal Gastrointestinal: reports: Nausea. denies: Abdominal pain, Vomiting - Genitourinary Genitourinary: denies: Dysuria, Frequency, Urgency - Musculoskeletal Musculoskeletal: reports: Back pain. denies: Muscle weakness - Integumentary Integumentary: denies: Rash - Neurological Neurological: reports: General weakness, Numbness. denies: Focal weakness, Headache - All Other Systems All Other Systems: reports: Reviewed and negative Prior Level of Functionality: She is independent with her ADLs. Exam - Vital Signs Reviewed Vital Signs: Yes Vital Signs: Vital Signs x48h Temp Pulse Pulse Resp BP BP Pulse Ox 04/05/19 19:33 37.0 C 105 H 30 H 112/69 91 L 04/05/19 19:02 36.4 C L 128 H 32 H 104/76 90 L 04/05/19 18:45 120 H 33 H 113/79 90 L 04/05/19 18:08 116 H 33 H 124/105 H 93 04/05/19 17:30 107 H 20 110/60 92 04/05/19 17:00 102 H 29 H 110/60 94 04/05/19 16:30 114 H 27 H 113/67 91 L 04/05/19 16:00 109 H 31 H 109/68 88 L 04/05/19 15:30 117 H 33 H 118/62 88 L 04/05/19 15:00 104 H 32 H 111/83 H 92 04/05/19 13:30 91 34 H 104/74 92 04/05/19 13:15 97 26 H 04/05/19 13:08 94 23 87/60 L 94 04/05/19 12:30 89 28 H 95/49 L 95 - Physical Exam General Appearance: positive: Alert, Moderate distress Eyes Bilateral: positive: Normal inspection ENT: positive: ENT inspection nml, Other (Nasal cannula in place.) Neck: positive: Nml inspection Respiratory: positive: Wheezes (She has diffuse expiratory wheezes with decreased air movement.), Other (She is tachypneic but able to speak in full sentences.). negative: No respiratory distress, Breath sounds nml Cardiovascular: positive: No murmur, Tachycardia. negative: Systolic murmur, Diastolic murmur Abdomen: positive: Non-tender. negative: No distention, Tenderness, Guarding, Rebound Skin: positive: No rash, Warm, Dry Extremities: positive: Full ROM, No pedal edema Neurologic/Psychiatric: positive: Oriented x3, Other (No focal motor deficits.). negative: Disoriented to person, Disoriented to place, Disoriented to time, Weakness Sepsis Event Note (H) - Evaluation Current Stage of Sepsis: Sepsis Possible source of Sepsis: positive: Pulmonary - Sepsis Criteria Sepsis Criteria: Recorded Temperature greater than 38.3C or Less than 36C, Recorded Heart Rate greater than 90 bpm, Recorded Respiratory Rate greater than 20, Respiratory: Increasing oxygen requirements, WBC count greater than 12,000 or less than 4000, Metabolic: lactate > 2 mmol/L Conclusion/Plan - Problem List (1) Acute and chronic respiratory failure with hypoxia Conclusion/Plan: Suspect this is secondary to her pneumonia in the setting of asthma exacerbation although I do wonder if she truly never required 8 L of oxygen as the pleth has been quite poor here and her pO2 on VBG was elevated at 50.4. She was initially hypoxic requiring 8 L of oxygen to maintain a saturation of 92%. She is now back down to 3 L of oxygen and maintaining a saturation in the mid 90s. Her chest x-ray was relatively unremarkable although there was concern for developing right perihilar infiltrate. We will continue her on IV antibiotics. Continue her baseline 3 L of oxygen as long as her oxygen saturation remained above 92%. Tessalon and guaifenesin/codeine for her cough. (2) Asthma exacerbation Conclusion/Plan: She has expiratory wheezes with diminished breath sounds throughout. Will check for influenza as a possible etiology of her exacerbation given she was febrile. She does not appear to be on appropriate therapy at home for asthma/COPD given she is only on albuterol as needed although she does report prior adverse effects of ICS. We will give her a one-time dose of Solumedrol 125 mg and continue 40 mg twice a day. We will start her on albuterol/ipratropium every 4 hours. Continue antibiotics for her pneumonia. Qualifiers: Asthma severity: severe Asthma persistence: persistent Qualified Code(s): J45.51 - Severe persistent asthma with (acute) exacerbation (3) Sepsis Conclusion/Plan: She presented with fever, tachycardia, tachypnea, elevated white count with left shift, elevated lactic acid. Some of these may be explained by her asthma exacerbation although her fever and white count are concerning. This may be seco ndary to pneumonia but will need to rule out other causes. Her urinalysis is unremarkable. We will continue her on antibiotics for community-acquired pneumonia. Will check influenza. Follow-up blood cultures. (4) Syncope Conclusion/Plan: Her history is concerning for syncope and suspect the etiology is likely her hypoxia. She did have an echocardiogram last year which was unremarkable. EKG is pending. Will check troponins. Monitor her on telemetry. Will hold off on obtaining a CT of the head as she has no focal neurological deficits. Qualifiers: Syncope type: unspecified Qualified Code(s): R55 - Syncope and collapse (5) Community acquired pneumonia Conclusion/Plan: This may potentially be a source of her suspected sepsis. Chest x-ray is conc erning for right-sided perihilar infiltrate. She did have a white count, fever, cough, hypoxia. We will continue her on ceftriaxone and azithromycin for community-acquired pneumonia. (6) Anxiety Conclusion/Plan: She does appear anxious at this time. We will continue her home Klonopin. (7) Bipolar disorder Conclusion/Plan: Stable. We will continue her Lamictal and Seroquel. (8) Hepatitis C Conclusion/Plan: Suspects the cause of her elevated LFTs and they are relatively stable compared to labs from last year. She will require outpatient follow-up for consideration of treatment. - Lab Results Lab results reviewed: Yes Fish Bones: 04/05/19 16:00 04/05/19 14:58 - Diagnostic Imaging Results Diagnostic Imaging Results: positive: Final report reviewed, Read independently Diagnostic Imaging Results Comments: Her chest x-ray is relatively unremarkable. There is a slight haziness in the right perihilar area which may be a developing infiltrate. Core Measures - Anticipated LOS I expect patient to be DC'd or transferred within 96 hours.: Yes - Issues Hospital Issues and Management Plan: Acute hypoxic respirator failure secondary to asthma exacerbation and suspected pneumonia. Will require IV steroids, antibiotics and close respiratory monitoring. - DVT/VTE - Prophylaxis VTE/DVT Device ordered at admit?: Yes VTE/DVT Prophylaxis med ordered at admit?: Yes
[2019-04-05] MEDS: FAMOTIDINE 20 MG TABLET PO SCH (20:21)
[2019-04-05] MEDS: methylPREDNISolone SUCCINATE 125 MG/2 ML VIAL IVP STA ×2 (20:21→20:22)
[2019-04-05] MEDS: SODIUM CHLORIDE FLUSH 0.9% 10 ML SYRINGE IVP PRN (20:22)
[2019-04-05] MEDS: guaiFENesin/CODEINE 5 ML UDC PO PRN (20:22)
[2019-04-05] MEDS ORDERED: QUEtiapine 100 MG TABLET PO SCH (21:00)
[2019-04-05] MEDS ORDERED: LACTATED RINGERS 1,000 ML IV SCH (21:00)
[2019-04-05] MEDS: IPRATROPIUM/ALBUTEROL 3 ML NEB INH SCH (22:37)
[2019-04-05] MEDS: BENZONATATE 100 MG CAPSULE PO PRN (23:11)
[2019-04-06] MEDS ORDERED: AZITHROMYCIN INJ 500 MG in SODIUM CHLORIDE 0.9% 250 ML IV STA (00:19)
[2019-04-06] MEDS: SODIUM CHLORIDE FLUSH 0.9% 10 ML SYRINGE IVP SCH ×3 (00:22→18:06)
[2019-04-06] MEDS: IPRATROPIUM/ALBUTEROL 3 ML NEB INH SCH ×5 (01:56→20:16)
[2019-04-06] MEDS: guaiFENesin/CODEINE 5 ML UDC PO PRN ×3 (02:27→20:54)
[2019-04-06] MEDS: BENZONATATE 100 MG CAPSULE PO PRN (07:03)
[2019-04-06] MEDS ORDERED: LORazepam 2 MG/ML VIAL IVP PRN (07:54)
[2019-04-06] MEDS ORDERED: MORPHINE 2 MG/ML CARPUJECT IVP PRN (07:58)
--- NOTE | 2019-04-06 08:24 | XRAY Report ---
Reason: Hypoxia. Cough. Asthma. Procedure Date: 04/06/2019 Accession Number: [id number] / [id number] Procedure: XR - Chest 1 View X-Ray CPT Code: 68106 Final Report FULL RESULT: EXAM: CHEST RADIOGRAPHY EXAM DATE: 04/06/2019 08:08 AM. CLINICAL HISTORY: Hypoxia. Cough. Asthma. COMPARISON: CHEST 2 VIEW 04/05/2019 10:49 AM. TECHNIQUE: 1 view. FINDINGS: Lungs/Pleura: Development of patchy infiltrates in the left upper lung and the right lung base. Mediastinum: Within exam limitations, the cardiomediastinal contour is normal. Other: None. IMPRESSION: Bilateral infiltrates. RADIA
[2019-04-06] MEDS ORDERED: lamoTRIgine 100 MG TABLET PO SCH (09:00)
[2019-04-06] MEDS ORDERED: SERTRALINE 50 MG TABLET PO SCH (09:00)
[2019-04-06] MEDS ORDERED: LIDOCAINE-MPF 1% 5 ML VIAL SUBQ SCH (09:04)
[2019-04-06] MEDS ORDERED: SODIUM CHLORIDE 0.9% 500 ML IV PRN (09:16)
[2019-04-06] MEDS ORDERED: SODIUM CHLORIDE 0.9% 500 ML ONE (09:22)
[2019-04-06] MEDS ORDERED: LIDOCAINE-MPF 1% 5 ML VIAL TOP SCH (09:26)
[2019-04-06] MEDS: AZITHROMYCIN 250 MG TABLET PO SCH (09:32)
[2019-04-06] MEDS: FAMOTIDINE 20 MG TABLET PO SCH ×2 (09:33→20:21)
[2019-04-06] MEDS: methylPREDNISolone SUCCINATE 40 MG/ML VIAL IVP SCH ×2 (09:36→20:21)
[2019-04-06 09:48] LABS: ABG PCO2 45 mmHg (34-45); ABG PH 7.34 (7.35-7.45); ABG PO2 82 mmHg (80-100)
[2019-04-06 09:49] LABS: ABG BASE EXCESS -2.3 mmol/L (-2.0-3.0); ABG HCO3 23.7 mmol/L (22.0-26.0); ABG OXYGEN SATURATION 96 % (94-98); ABG TCO2 25.1 MMOL/L (21.0-29.0); ALLEN TEST POSITIVE
[2019-04-06 11:07] LABS: BASOPHILS # (AUTO) 0.1 10^3/uL (0.0-0.1); BASOPHILS % (AUTO) 0.4 %; HGB - HEMOGLOBIN 12.9 g/dL (12.0-16.0); LYMPHOCYTES % (AUTO) 3.6 %; MEAN CORPUSCULAR HEMOGLOBIN 29.6 pg (27.0-31.0); MEAN CORPUSCULAR HGB CONC 32.2 g/dL (32.0-36.0); MEAN PLATELET VOLUME 9.7 fL (7.9-10.8); MONOCYTES % (AUTO) 3.6 %; NEUTROPHILS # (AUTO) 25.6 10^3/uL (1.5-6.6); PLT - PLATELET COUNT 217 10^3/uL (130-450); RED BLOOD COUNT 4.36 10^6/uL (4.20-5.40); RED CELL DISTRIBUTION WIDTH 13.4 % (12.0-15.0); WHITE BLOOD COUNT 28.1 x10^3/uL (4.8-10.8)
[2019-04-06 11:24] LABS: CALCIUM 8.6 mg/dL (8.5-10.3); CREATININE 0.7 mg/dL (0.4-1.0); MAGNESIUM 2.3 mg/dL (1.7-2.8); PHOSPHORUS 2.1 mg/dL (2.5-4.6)
[2019-04-06 11:59] LABS: PLATELET ESTIMATE, MANUAL NORMAL (130-450,000) (NORMAL); PLATELET MORPHOLOGY NORMAL APPEARANCE (NORMAL); RBC MORPHOLOGY (MULTIPLE) NORMAL APPEARANCE (NORMAL)
[2019-04-06] MEDS: LORazepam 2 MG/ML VIAL IVP PRN ×3 (18:04→19:57)
--- NOTE | 2019-04-06 18:50 | PROVIDER PROGRESS NOTE ---
Assessment/Plan - Problem List (1) Asthma exacerbation Qualifiers: Asthma severity: severe Asthma persistence: persistent Qualified Code(s): J45.51 - Severe persistent asthma with (acute) exacerbation Assessment/Plan: Her asthma is so severe that she has home O2 for treatment and needed intubations in the past. Continue iv steroids, nebs, Mucinex and supplemental O2. She needs education about the detriments of vaping, when she is more lucid. (2) Acute and chronic respiratory failure with hypoxia Assessment/Plan: She needed BIPAP then weaned to hi flow O2. ABG done. Continue ICU care (3) Community acquired pneumonia Assessment/Plan: Infiltrate bilaterally on CXR She has a dry cough, does not produce sputum, to send for a sputum cx. Zithromax was started, no Ceftrixone presumably due to a PCN allergy. (4) Bipolar disorder Assessment/Plan: She is extremely anxious she herself says. She is also exhibiting attention seeking behavior: is quiet and resting, wearing n.c. O2, then when someone enters, she starts to fidget, cry out resp rate rises, she screamed when ABG was being drawn. Morphine for air hunger and Ativan prn anxiety were started and helped. Will also start all her home psych meds. - Current Meds Current Meds: Current Medications Generic Name Dose Route Start Last Admin Trade Name Freq PRN Reason Stop Dose Admin Albuterol/Ipratropium 3 ml 04/05/19 20:00 04/06/19 15:36 Duoneb INH 3 ml RTQ4H ALMA Administration Azithromycin 250 mg 04/06/19 09:00 04/06/19 09:32 Zithromax PO 250 mg DAILY ALMA Administration Benzonatate 100 mg 04/05/19 20:02 04/06/19 07:03 Tessalon PO 100 mg TID PRN Administration Cough Famotidine 20 mg 04/05/19 21:00 04/06/19 09:33 Pepcid PO 20 mg BID ALMA Administration Guaifenesin/Codeine Phosphate 5 ml 04/05/19 20:02 04/06/19 14:03 Robitussin Ac PO 5 ml Q6HR PRN Administration Cough Sodium Chloride 500 mls @ 0 mls/hr 04/06/19 09:16 04/06/19 09:31 Normal Saline 0.9% IV 20 mls/hr Q24H PRN Administration TKO RATE TKO Lamotrigine 100 mg 04/06/19 09:00 04/06/19 09:33 Lamictal PO 100 mg DAILY ALMA Administration Methylprednisolone 40 mg 04/06/19 09:00 04/06/19 09:36 Solu-Medrol (40mg Vial) IVP 40 mg BID ALMA Administration Quetiapine Fumarate 400 mg 04/05/19 21:00 04/05/19 20:22 Seroquel PO 400 mg QPM ALMA Administration Sertraline HCl 50 mg 04/06/19 09:00 04/06/19 09:32 Zoloft PO 50 mg DAILY ALMA Administration Sodium Chloride 10 ml 04/06/19 01:00 04/06/19 18:06 Normal Saline Flush 0.9% IVP 10 ml 0100,0900,1700 ALMA Administration Sodium Chloride 10 ml 04/05/19 18:35 04/05/19 20:22 Normal Saline Flush 0.9% IVP 10 ml PRN PRN Administration NEEDED PER PROVIDER ORDERS - Lab Result Fish Bone Diagrams: 04/06/19 11:00 04/06/19 11:00 - Additional Planning My Orders: My Active Orders 04/05/19 18:35 Initiate Bronchodialator Ike [RC] .PROTOCOL Initiate Secretion Clearance P [RC] .PROTOCOL Vital Signs [RC] Q1H Acetaminophen [Tylenol] 650 mg PO Q4HR PRN Albuterol 2.5 mg INH Q4HR PRN Ipratropium [Atrovent] 0.5 mg INH Q6HR PRN Prochlorperazine Inj [Compazine Inj] 10 mg IVP Q6HR PRN Sodium Chloride Flush 0.9% [Normal Saline Flush 0.9%] 10 ml IVP PRN PRN 04/05/19 18:36 Activity Orders [RC] Q2HR Daily Weight [RC] 0600 IO [RC] Q1HR Initiate Bowel Care Protocol [RC] QSHIFT Initiate ICU Electrolyte Prot. [RC] .protocol Initiate Line Care Protocol [RC] .protocol Initiate Personal Care Protoco [RC] .protocol Code Status [OTHERS] Routine Condition of Patient [OTHERS] Routine DVT Prophylaxis [OTHERS] Routine 04/05/19 18:37 Oral Care - Nursing [RC] Routine Oxygen Therapy [RC] .PRN SCDs [RC] QSHIFT Telemetry- [RC] Q4HR 04/05/19 18:39 Initiate Line Care Protocol [RC] QSHIFT 04/05/19 21:00 Famotidine [Pepcid] 20 mg PO BID 04/06/19 01:00 Sodium Chloride Flush 0.9% [Normal Saline Flush 0.9%] 10 ml IVP 0100,0900,1700 04/06/19 09:16 Sodium Chloride 0.9% [Normal Saline 0.9%] 500 ml IV Q24H 04/06/19 13:27 LORazepam INJ [Ativan Inj (Vial)] 1 mg IVP Q2HR PRN 04/06/19 13:28 Morphine Inj (Carpuject) [Morphine (Carpuject)] 3 mg IVP Q2HR PRN 04/06/19 21:00 [email or web address] [Mucinex] 600 mg PO BID Subjective - Subjective Patient Reports: Other (Fidgeting, stating she is worried about the needle stick.) Nursing Reports: Other (Oriented to self) Objective Vital Signs: Vital Signs - 24 hr 04/05/19 04/05/19 04/05/19 18:45 19:02 19:31 Temperature 36.4 C L Heart Rate 120 H 104 H Heart Rate [ 128 H Monitoring electrodes] Respiratory 33 H 32 H 37 H Rate Blood Pressure 113/79 112/69 Blood Pressure [Left Brachial artery] Blood Pressure [Left Radial artery] Blood Pressure 104/76 [Right Brachial artery] O2 Saturation 90 L 90 L 04/05/19 04/05/19 04/05/19 19:33 19:35 19:40 Temperature 37.0 C Heart Rate 100 105 H Heart Rate [ 105 H Monitoring electrodes] Respiratory 30 H 33 H 19 Rate Blood Pressure Blood Pressure [Left Brachial artery] Blood Pressure [Left Radial artery] Blood Pressure 112/69 [Right Brachial artery] O2 Saturation 91 L 04/05/19 04/05/19 04/05/19 19:45 19:50 19:55 Temperature Heart Rate 105 H 100 111 H Heart Rate [ Monitoring electrodes] Respiratory 36 H 59 H 32 H Rate Blood Pressure Blood Pressure [Left Brachial artery] Blood Pressure [Left Radial artery] Blood Pressure [Right Brachial artery] O2 Saturation 04/05/19 04/05/19 04/05/19 20:00 20:05 20:10 Temperature Heart Rate 114 H 107 H 111 H Heart Rate [ 109 H Monitoring electrodes] Respiratory 36 H 37 H 37 H Rate Blood Pressure Blood Pressure [Left Brachial artery] Blood Pressure [Left Radial artery] Blood Pressure [Right Brachial artery] O2 Saturation 94 04/05/19 04/05/19 04/05/19 20:15 20:20 20:25 Temperature Heart Rate 105 H 102 H 102 H Heart Rate [ Monitoring electrodes] Respiratory 46 H 26 H 28 H Rate Blood Pressure Blood Pressure [Left Brachial artery] Blood Pressure [Left Radial artery] Blood Pressure [Right Brachial artery] O2 Saturation 04/05/19 04/05/19 04/05/19 20:30 20:35 20:40 Temperature Heart Rate 102 H 101 H 108 H Heart Rate [ Monitoring electrodes] Respiratory 31 H 28 H 37 H Rate Blood Pressure Blood Pressure [Left Brachial artery] Blood Pressure [Left Radial artery] Blood Pressure [Right Brachial artery] O2 Saturation 04/05/19 04/05/19 04/05/19 20:45 20:50 20:55 Temperature Heart Rate 103 H 99 104 H Heart Rate [ Monitoring electrodes] Respiratory 44 H 35 H 32 H Rate Blood Pressure Blood Pressure [Left Brachial artery] Blood Pressure [Left Radial artery] Blood Pressure [Right Brachial artery] O2 Saturation 04/05/19 04/05/19 04/05/19 21:00 21:05 21:10 Temperature Heart Rate 103 H 100 100 Heart Rate [ 110 H Monitoring electrodes] Respiratory 45 H 36 H 42 H Rate Blood Pressure Blood Pressure [Left Brachial artery] Blood Pressure [Left Radial artery] Blood Pressure 114/82 H [Right Brachial artery] O2 Saturation 90 L 04/05/19 04/05/19 04/05/19 21:15 21:20 21:25 Temperature Heart Rate 98 101 H 100 Heart Rate [ Monitoring electrodes] Respiratory 37 H 26 H 26 H Rate Blood Pressure Blood Pressure [Left Brachial artery] Blood Pressure [Left Radial artery] Blood Pressure [Right Brachial artery] O2 Saturation 04/05/19 04/05/19 04/05/19 21:30 21:35 21:40 Temperature Heart Rate 98 104 H 100 Heart Rate [ Monitoring electrodes] Respiratory 33 H 33 H 26 H Rate Blood Pressure Blood Pressure [Left Brachial artery] Blood Pressure [Left Radial artery] Blood Pressure [Right Brachial artery] O2 Saturation 04/05/19 04/05/19 04/05/19 21:45 21:50 21:55 Temperature Heart Rate 94 115 H 107 H Heart Rate [ Monitoring electrodes] Respiratory 30 H 27 H 31 H Rate Blood Pressure Blood Pressure [Left Brachial artery] Blood Pressure [Left Radial artery] Blood Pressure [Right Brachial artery] O2 Saturation 04/05/19 04/05/19 04/05/19 21:56 22:00 22:02 Temperature Heart Rate 102 H 99 99 Heart Rate [ 99 Monitoring electrodes] Respiratory 36 H 38 H 38 H Rate Blood Pressure 114/82 H Blood Pressure [Left Brachial artery] Blood Pressure [Left Radial artery] Blood Pressure 136/76 H [Right Brachial artery] O2 Saturation 96 04/05/19 04/05/19 04/05/19 22:03 22:05 22:10 Temperature Heart Rate 100 101 H 100 Heart Rate [ Monitoring electrodes] Respiratory 30 H 37 H 35 H Rate Blood Pressure 136/76 H Blood Pressure [Left Brachial artery] Blood Pressure [Left Radial artery] Blood Pressure [Right Brachial artery] O2 Saturation 04/05/19 04/05/19 04/05/19 22:15 22:20 22:25 Temperature Heart Rate 99 101 H 99 Heart Rate [ Monitoring electrodes] Respiratory 29 H 31 H 28 H Rate Blood Pressure Blood Pressure [Left Brachial artery] Blood Pressure [Left Radial artery] Blood Pressure [Right Brachial artery] O2 Saturation 04/05/19 04/05/19 04/05/19 22:30 22:35 22:39 Temperature Heart Rate 96 94 93 Heart Rate [ Monitoring electrodes] Respiratory 36 H 34 H 32 H Rate Blood Pressure Blood Pressure [Left Brachial artery] Blood Pressure [Left Radial artery] Blood Pressure [Right Brachial artery] O2 Saturation 04/05/19 04/05/19 04/05/19 22:40 22:45 22:50 Temperature Heart Rate 95 95 97 Heart Rate [ Monitoring electrodes] Respiratory 25 H 29 H 31 H Rate Blood Pressure Blood Pressure [Left Brachial artery] Blood Pressure [Left Radial artery] Blood Pressure [Right Brachial artery] O2 Saturation 04/05/19 04/05/19 04/05/19 22:55 23:00 23:05 Temperature Heart Rate 103 H 107 H 118 H Heart Rate [ Monitoring electrodes] Respiratory 32 H 23 22 Rate Blood Pressure Blood Pressure [Left Brachial artery] Blood Pressure [Left Radial artery] Blood Pressure [Right Brachial artery] O2 Saturation 04/05/19 04/05/19 04/05/19 23:06 23:07 23:08 Temperature Heart Rate 112 H 110 H Heart Rate [ 120 H Monitoring electrodes] Respiratory 26 H 29 H 29 H Rate Blood Pressure 119/71 Blood Pressure [Left Brachial artery] Blood Pressure 119/71 [Left Radial artery] Blood Pressure [Right Brachial artery] O2 Saturation 94 04/05/19 04/05/19 04/05/19 23:10 23:12 23:15 Temperature Heart Rate 109 H 106 H 105 H Heart Rate [ Monitoring electrodes] Respiratory 50 H 44 H 29 H Rate Blood Pressure Blood Pressure [Left Brachial artery] Blood Pressure [Left Radial artery] Blood Pressure [Right Brachial artery] O2 Saturation 04/05/19 04/05/19 04/05/19 23:20 23:25 23:30 Temperature Heart Rate 104 H 101 H 101 H Heart Rate [ Monitoring electrodes] Respiratory 41 H 35 H 37 H Rate Blood Pressure Blood Pressure [Left Brachial artery] Blood Pressure [Left Radial artery] Blood Pressure [Right Brachial artery] O2 Saturation 04/05/19 04/05/19 04/05/19 23:35 23:40 23:45 Temperature Heart Rate 98 97 97 Heart Rate [ Monitoring electrodes] Respiratory 35 H 34 H 35 H Rate Blood Pressure Blood Pressure [Left Brachial artery] Blood Pressure [Left Radial artery] Blood Pressure [Right Brachial artery] O2 Saturation 04/05/19 04/05/19 04/06/19 23:50 23:55 00:00 Temperature 36.9 C Heart Rate 93 95 93 Heart Rate [ 94 Monitoring electrodes] Respiratory 28 H 33 H 32 H Rate Blood Pressure Blood Pressure 103/67 [Left Brachial artery] Blood Pressure 103/67 [Left Radial artery] Blood Pressure [Right Brachial artery] O2 Saturation 97 04/06/19 04/06/19 04/06/19 00:01 00:05 00:10 Temperature Heart Rate 95 93 92 Heart Rate [ Monitoring electrodes] Respiratory 30 H 35 H 32 H Rate Blood Pressure 103/67 Blood Pressure [Left Brachial artery] Blood Pressure [Left Radial artery] Blood Pressure [Right Brachial artery] O2 Saturation 04/06/19 04/06/19 04/06/19 00:15 00:20 00:25 Temperature Heart Rate 94 92 92 Heart Rate [ Monitoring electrodes] Respiratory 33 H 32 H 28 H Rate Blood Pressure Blood Pressure [Left Brachial artery] Blood Pressure [Left Radial artery] Blood Pressure [Right Brachial artery] O2 Saturation 04/06/19 04/06/19 04/06/19 00:30 00:35 00:40 Temperature Heart Rate 94 94 99 Heart Rate [ Monitoring electrodes] Respiratory 32 H 32 H 34 H Rate Blood Pressure Blood Pressure [Left Brachial artery] Blood Pressure [Left Radial artery] Blood Pressure [Right Brachial artery] O2 Saturation 04/06/19 04/06/19 04/06/19 00:45 00:50 00:55 Temperature Heart Rate 109 H 101 H 101 H Heart Rate [ Monitoring electrodes] Respiratory 37 H 40 H 41 H Rate Blood Pressure Blood Pressure [Left Brachial artery] Blood Pressure [Left Radial artery] Blood Pressure [Right Brachial artery] O2 Saturation 04/06/19 04/06/19 04/06/19 01:00 01:01 01:05 Temperature Heart Rate 99 99 94 Heart Rate [ 97 Monitoring electrodes] Respiratory 39 H 38 H 40 H Rate Blood Pressure 111/70 Blood Pressure 111/70 [Left Brachial artery] Blood Pressure [Left Radial artery] Blood Pressure [Right Brachial artery] O2 Saturation 95 04/06/19 04/06/19 04/06/19 01:15 01:20 01:25 Temperature Heart Rate 97 97 97 Heart Rate [ Monitoring electrodes] Respiratory 34 H 37 H 36 H Rate Blood Pressure Blood Pressure [Left Brachial artery] Blood Pressure [Left Radial artery] Blood Pressure [Right Brachial artery] O2 Saturation 04/06/19 04/06/19 04/06/19 01:30 01:35 01:40 Temperature Heart Rate 96 95 94 Heart Rate [ Monitoring electrodes] Respiratory 30 H 32 H 32 H Rate Blood Pressure Blood Pressure [Left Brachial artery] Blood Pressure [Left Radial artery] Blood Pressure [Right Brachial artery] O2 Saturation 04/06/19 04/06/19 04/06/19 01:45 01:50 01:55 Temperature Heart Rate 94 92 102 H Heart Rate [ Monitoring electrodes] Respiratory 32 H 32 H 45 H Rate Blood Pressure Blood Pressure [Left Brachial artery] Blood Pressure [Left Radial artery] Blood Pressure [Right Brachial artery] O2 Saturation 04/06/19 04/06/19 04/06/19 01:56 02:00 02:01 Temperature Heart Rate 100 98 100 Heart Rate [ 105 H Monitoring electrodes] Respiratory 38 H 37 H 40 H Rate Blood Pressure 101/77 Blood Pressure 101/77 [Left Brachial artery] Blood Pressure [Left Radial artery] Blood Pressure [Right Brachial artery] O2 Saturation 93 04/06/19 04/06/19 04/06/19 02:05 02:10 02:15 Temperature Heart Rate 101 H 105 H 108 H Heart Rate [ Monitoring electrodes] Respiratory 37 H 35 H 30 H Rate Blood Pressure Blood Pressure [Left Brachial artery] Blood Pressure [Left Radial artery] Blood Pressure [Right Brachial artery] O2 Saturation 04/06/19 04/06/19 04/06/19 02:20 02:25 02:30 Temperature Heart Rate 108 H 107 H 109 H Heart Rate [ Monitoring electrodes] Respiratory 32 H 35 H 25 H Rate Blood Pressure Blood Pressure [Left Brachial artery] Blood Pressure [Left Radial artery] Blood Pressure [Right Brachial artery] O2 Saturation 04/06/19 04/06/19 04/06/19 02:35 02:40 02:45 Temperature Heart Rate 106 H 106 H 106 H Heart Rate [ Monitoring electrodes] Respiratory 36 H 39 H 37 H Rate Blood Pressure Blood Pressure [Left Brachial artery] Blood Pressure [Left Radial artery] Blood Pressure [Right Brachial artery] O2 Saturation 04/06/19 04/06/19 04/06/19 02:50 02:55 03:00 Temperature Heart Rate 105 H 105 H 103 H Heart Rate [ 103 H Monitoring electrodes] Respiratory 33 H 29 H 36 H Rate Blood Pressure Blood Pressure 112/97 H [Left Brachial artery] Blood Pressure [Left Radial artery] Blood Pressure [Right Brachial artery] O2 Saturation 95 04/06/19 04/06/19 04/06/19 03:01 03:05 03:10 Temperature Heart Rate 104 H 103 H 102 H Heart Rate [ Monitoring electrodes] Respiratory 36 H 28 H 38 H Rate Blood Pressure 112/97 H Blood Pressure [Left Brachial artery] Blood Pressure [Left Radial artery] Blood Pressure [Right Brachial artery] O2 Saturation 04/06/19 04/06/19 04/06/19 03:15 03:20 03:25 Temperature Heart Rate 103 H 102 H 102 H Heart Rate [ Monitoring electrodes] Respiratory 31 H 32 H 29 H Rate Blood Pressure Blood Pressure [Left Brachial artery] Blood Pressure [Left Radial artery] Blood Pressure [Right Brachial artery] O2 Saturation 04/06/19 04/06/19 04/06/19 03:30 03:35 03:40 Temperature Heart Rate 101 H 100 101 H Heart Rate [ Monitoring electrodes] Respiratory 33 H 29 H 32 H Rate Blood Pressure Blood Pressure [Left Brachial artery] Blood Pressure [Left Radial artery] Blood Pressure [Right Brachial artery] O2 Saturation 04/06/19 04/06/19 04/06/19 03:45 03:50 03:55 Temperature Heart Rate 101 H 101 H 101 H Heart Rate [ Monitoring electrodes] Respiratory 31 H 32 H 32 H Rate Blood Pressure Blood Pressure [Left Brachial artery] Blood Pressure [Left Radial artery] Blood Pressure [Right Brachial artery] O2 Saturation 04/06/19 04/06/19 04/06/19 04:00 04:01 04:02 Temperature Heart Rate 100 101 H 100 Heart Rate [ 100 Monitoring electrodes] Respiratory 32 H 33 H 32 H Rate Blood Pressure 114/53 L Blood Pressure 114/53 L [Left Brachial artery] Blood Pressure [Left Radial artery] Blood Pressure [Right Brachial artery] O2 Saturation 94 04/06/19 04/06/19 04/06/19 04:05 04:10 04:15 Temperature Heart Rate 100 100 99 Heart Rate [ Monitoring electrodes] Respiratory 31 H 36 H 28 H Rate Blood Pressure Blood Pressure [Left Brachial artery] Blood Pressure [Left Radial artery] Blood Pressure [Right Brachial artery] O2 Saturation 04/06/19 04/06/19 04/06/19 04:20 04:25 04:30 Temperature Heart Rate 99 100 101 H Heart Rate [ Monitoring electrodes] Respiratory 32 H 32 H 26 H Rate Blood Pressure Blood Pressure [Left Brachial artery] Blood Pressure [Left Radial artery] Blood Pressure [Right Brachial artery] O2 Saturation 04/06/19 04/06/19 04/06/19 04:35 04:40 04:45 Temperature Heart Rate 118 H 120 H 118 H Heart Rate [ Monitoring electrodes] Respiratory 17 28 H 33 H Rate Blood Pressure Blood Pressure [Left Brachial artery] Blood Pressure [Left Radial artery] Blood Pressure [Right Brachial artery] O2 Saturation 04/06/19 04/06/19 04/06/19 04:50 04:53 04:55 Temperature 36.9 C Heart Rate 108 H 106 H Heart Rate [ 109 H Monitoring electrodes] Respiratory 41 H 32 H 34 H Rate Blood Pressure Blood Pressure [Left Brachial artery] Blood Pressure [Left Radial artery] Blood Pressure [Right Brachial artery] O2 Saturation 91 L 04/06/19 04/06/19 04/06/19 05:00 06:00 06:37 Temperature Heart Rate 105 H Heart Rate [ 104 H 97 Monitoring electrodes] Respiratory 45 H 31 H 41 H Rate Blood Pressure Blood Pressure 110/70 109/67 [Left Brachial artery] Blood Pressure [Left Radial artery] Blood Pressure [Right Brachial artery] O2 Saturation 91 L 96 04/06/19 04/06/19 04/06/19 07:10 10:00 10:15 Temperature 37.2 C Heart Rate 120 H Heart Rate [ 130 H 116 H Monitoring electrodes] Respiratory 34 H Rate Blood Pressure Blood Pressure 117/63 [Left Brachial artery] Blood Pressure [Left Radial artery] Blood Pressure [Right Brachial artery] O2 Saturation 62 L 94 04/06/19 04/06/19 04/06/19 11:00 12:00 14:00 Temperature Heart Rate Heart Rate [ 116 H 118 H 121 H Monitoring electrodes] Respiratory 40 H 24 31 H Rate Blood Pressure Blood Pressure 115/68 113/69 [Left Brachial artery] Blood Pressure [Left Radial artery] Blood Pressure [Right Brachial artery] O2 Saturation 91 L 96 04/06/19 04/06/19 04/06/19 15:00 15:38 16:00 Temperature 36.9 C 36.6 C Heart Rate 112 H Heart Rate [ 118 H 117 H Monitoring electrodes] Respiratory 34 H 26 H Rate Blood Pressure Blood Pressure 121/75 [Left Brachial artery] Blood Pressure [Left Radial artery] Blood Pressure [Right Brachial artery] O2 Saturation 94 04/06/19 04/06/19 17:00 18:00 Temperature Heart Rate Heart Rate [ 118 H 119 H Monitoring electrodes] Respiratory Rate Blood Pressure Blood Pressure 130/77 [Left Brachial artery] Blood Pressure [Left Radial artery] Blood Pressure [Right Brachial artery] O2 Saturation Oxygen O2 Source Oxymizer Oxygen Flow Rate 6 I&O (Last 24 Hrs): Intake and Output Totals x24h 04/04/19 04/05/19 04/06/19 23:59 23:59 23:59 Intake Total 620 320 Output Total 550 1016 Balance 70 -696 General: Other (Anxious and fidgety) HEENT: Mucous membr. moist/pink, Other (wearing BIPAP) Neck: Supple Neuro: Disoriented, Non Focal Cardiovascular: Regular rate, No murmurs Respiratory: Wheezes, Other (Poor air movement) Abdomen: Soft Extremities: No edema - Results Results: Laboratory Results WBC 28.1 x10^3/uL (4.8-10.8) H 04/06/19 11:00 RBC 4.36 10^6/uL (4.20-5.40) 04/06/19 11:00 Hgb 12.9 g/dL (12.0-16.0) 04/06/19 11:00 Hct 40.1 % (37.0-47.0) 04/06/19 11:00 MCV 92.0 fL (81.0-99.0) 04/06/19 11:00 MCH 29.6 pg (27.0-31.0) 04/06/19 11:00 MCHC 32.2 g/dL (32.0-36.0) 04/06/19 11:00 RDW 13.4 % (12.0-15.0) 04/06/19 11:00 Plt Count 217 10^3/uL (130-450) 04/06/19 11:00 MPV 9.7 fL (7.9-10.8) 04/06/19 11:00 Neut # (Auto) 25.6 10^3/uL (1.5-6.6) H 04/06/19 11:00 Lymph # (Auto) 1.0 10^3/uL (1.5-3.5) L 04/06/19 11:00 [place] # (Auto) 1.0 10^3/uL (0.0-1.0) 04/06/19 11:00 Eos # (Auto) 0.0 10^3/uL (0.0-0.7) 04/06/19 11:00 Baso # (Auto) 0.1 10^3/uL (0.0-0.1) 04/06/19 11:00 Absolute Nucleated RBC 0.00 x10^3/uL 04/06/19 11:00 Nucleated RBC % 0.0 /100WBC 04/06/19 11:00 Manual Slide Review Indicated 04/06/19 11:00 WBC Morphology NORMAL APPEARANCE (NORMAL) 04/06/19 11:00 Platelet Estimate NORMAL (130-450,000) (NORMAL) 04/06/19 11:00 Platelet Morphology NORMAL APPEARANCE (NORMAL) 04/06/19 11:00 RBC Morph Micro Appear NORMAL APPEARANCE (NORMAL) 04/06/19 11:00 Bld Gas Analysis Time 0940 04/06/19 09:30 Sample Site LEFT RADIAL 04/06/19 09:30 ABG pH 7.34 (7.35-7.45) L 04/06/19 09:30 ABG pCO2 45 mmHg (34-45) 04/06/19 09:30 ABG pO2 82 mmHg (80-100) 04/06/19 09:30 ABG HCO3 23.7 mmol/L (22.0-26.0) 04/06/19 09:30 ABG Total CO2 25.1 MMOL/L (21.0-29.0) 04/06/19 09:30 ABG O2 Saturation 96 % (94-98) 04/06/19 09:30 ABG Oximetry Spot Check 96 % 04/06/19 09:30 ABG Base Excess -2.3 mmol/L (-2.0-3.0) L 04/06/19 09:30 Silvano Test POSITIVE 04/06/19 09:30 VBG pH 7.385 (7.31-7.41) 04/05/19 14:58 VBG pCO2 35.1 mmHg (41-51) L 04/05/19 14:58 VBG pO2 50.4 mmHg (25-47) H 04/05/19 14:58 VBG HCO3 20.5 mmol/L (23-28) L 04/05/19 14:58 VBG Total CO2 21.6 mmol/L (24-29) L 04/05/19 14:58 VBG O2 Saturation 88.7 % (60-80) H 04/05/19 14:58 VBG Base Excess -3.7 mmol/L (-2 - +2) L 04/05/19 14:58 Respiration Rate 41 b/min 04/06/19 09:30 O2 Delivery Device NASAL CANNULA 04/06/19 09:30 O2 Liters/Min 25.00 LPM 04/06/19 09:30 FiO2 98.00 04/06/19 09:30 Sodium 138 mmol/L (135-145) 04/06/19 11:00 Potassium 4.0 mmol/L (3.5-5.0) 04/06/19 11:00 Chloride 105 mmol/L (101-111) 04/06/19 11:00 Carbon Dioxide 23 mmol/L (21-32) 04/06/19 11:00 Anion Gap 10.0 (6-13) 04/06/19 11:00 BUN 13 mg/dL (6-20) 04/06/19 11:00 Creatinine 0.7 mg/dL (0.4-1.0) 04/06/19 11:00 Estimated GFR (MDRD) 94 (>89) 04/06/19 11:00 Glucose 175 mg/dL (70-100) H 04/06/19 11:00 Lactic Acid 1.6 mmol/L (0.5-2.2) 04/05/19 23:18 Calcium 8.6 mg/dL (8.5-10.3) 04/06/19 11:00 Phosphorus 2.1 mg/dL (2.5-4.6) L 04/06/19 11:00 Magnesium 2.3 mg/dL (1.7-2.8) 04/06/19 11:00 Total Bilirubin 1.0 mg/dL (0.2-1.0) 04/05/19 14:58 AST 91 IU/L (10-42) H 04/05/19 14:58 ALT 73 IU/L (10-60) H 04/05/19 14:58 Alkaline Phosphatase 83 IU/L (42-121) 04/05/19 14:58 Troponin I High Sens 30.2 ng/L (2.3-14.8) H* 04/05/19 23:18 Total Protein 7.3 g/dL (6.7-8.2) 04/05/19 14:58 Albumin 3.6 g/dL (3.2-5.5) 04/05/19 14:58 Globulin 3.7 g/dL (2.1-4.2) 04/05/19 14:58 Albumin/Globulin Ratio 1.0 (1.0-2.2) 04/05/19 14:58 Lipase 25 U/L (22-51) 04/05/19 14:58 Urine Color YELLOW 04/05/19 15:40 Urine Clarity CLEAR (CLEAR) 04/05/19 15:40 Urine pH 8.0 PH (5.0-7.5) H 04/05/19 15:40 Ur Specific [place] 1.010 (1.002-1.030) 04/05/19 15:40 Urine Protein NEGATIVE mg/dL (NEGATIVE) 04/05/19 15:40 Urine Glucose (UA) NEGATIVE mg/dL (NEGATIVE) 04/05/19 15:40 Urine Ketones NEGATIVE mg/dL (NEGATIVE) 04/05/19 15:40 Urine Occult Blood MODERATE (NEGATIVE) H 04/05/19 15:40 Urine Nitrite NEGATIVE (NEGATIVE) 04/05/19 15:40 Urine Bilirubin NEGATIVE (NEGATIVE) 04/05/19 15:40 Urine Urobilinogen 0.2 (NORMAL) E.U./dL (NORMAL) 04/05/19 15:40 Ur Leukocyte Esterase NEGATIVE (NEGATIVE) 04/05/19 15:40 Urine RBC 11-25 /HPF (0-5) H 04/05/19 15:40 Urine WBC 0-3 /HPF (0-5) 04/05/19 15:40 Ur Squamous Epith Cells RARE Squamous (<= Few) 04/05/19 15:40 Urine Bacteria Few /HPF (None Seen) 04/05/19 15:40 Ur Microscopic Review INDICATED 04/05/19 15:40 Urine Culture Comments NOT INDICATED 04/05/19 15:40 Nasal Screen MRSA (PCR) NEGATIVE (NEGATIVE) 04/05/19 19:19 Urine Opiates Screen POSITIVE (NEGATIVE) H 04/05/19 15:40 Ur Oxycodone Screen NEGATIVE (NEGATIVE) 04/05/19 15:40 Urine Methadone Screen NEGATIVE (NEGATIVE) 04/05/19 15:40 Ur Propoxyphene Screen NEGATIVE (NEGATIVE) 04/05/19 15:40 Ur Barbiturates Screen NEGATIVE (NEGATIVE) 04/05/19 15:40 Ur Tricyclics Screen POSITIVE (NEGATIVE) H 04/05/19 15:40 Ur Phencyclidine Scrn NEGATIVE (NEGATIVE) 04/05/19 15:40 Ur Amphetamine Screen NEGATIVE (NEGATIVE) 04/05/19 15:40 U Methamphetamines Scrn NEGATIVE (NEGATIVE) 04/05/19 15:40 U Benzodiazepines Scrn POSITIVE (NEGATIVE) H 04/05/19 15:40 Urine Cocaine Screen NEGATIVE (NEGATIVE) 04/05/19 15:40 U Cannabinoids Screen POSITIVE (NEGATIVE) H 04/05/19 15:40 Influenza A (Rapid) Negative (Negative) 04/05/19 22:00 Influenza B (Rapid) Negative (Negative) 04/05/19 22:00 - Procedures Procedures: Procedures INSERTION OF ENDOTRACHEAL AIRWAY INTO TRACHEA, VIA OPENING (09/18/17) INSERTION OF INFUSION DEV INTO SUP VENA CAVA, PERC APPROACH (09/18/17) RESPIRATORY VENTILATION, 24-96 CONSECUTIVE HOURS (09/18/17) Sepsis Event Note (H) - Evaluation Current Stage of Sepsis: Sepsis Possible source of Sepsis: positive: Pulmonary - Sepsis Criteria Sepsis Criteria: Recorded Temperature greater than 38.3C or Less than 36C, Recorded Heart Rate greater than 90 bpm, Recorded Respiratory Rate greater than 20, Respiratory: Increasing oxygen requirements, WBC count greater than 12,000 or less than 4000, Metabolic: lactate > 2 mmol/L
[2019-04-06] MEDS ORDERED: QUEtiapine 100 MG TABLET ONE (20:11)
[2019-04-06] MEDS: QUEtiapine 100 MG TABLET PO SCH (20:13)
[2019-04-06] MEDS: guaiFENesin 600 MG TABLET PO SCH (20:14)
[2019-04-06] MEDS: lamoTRIgine 100 MG TABLET PO SCH (20:21)
[2019-04-06] MEDS: MORPHINE 2 MG/ML CARPUJECT IVP PRN (21:04)
[2019-04-06] MEDS: clonazePAM 0.5 MG TABLET PO SCH (21:04)
[2019-04-07] MEDS: SODIUM CHLORIDE FLUSH 0.9% 10 ML SYRINGE IVP SCH ×3 (00:12→17:15)
[2019-04-07] MEDS: IPRATROPIUM/ALBUTEROL 3 ML NEB INH SCH ×3 (04:25→18:36)
[2019-04-07] MEDS: clonazePAM 0.5 MG TABLET PO SCH ×3 (06:04→23:52)
[2019-04-07] MEDS: guaiFENesin/CODEINE 5 ML UDC PO PRN ×2 (06:04→17:14)
[2019-04-07] MEDS: MORPHINE 2 MG/ML CARPUJECT IVP PRN ×4 (06:08→21:08)
[2019-04-07] MEDS: LORazepam 2 MG/ML VIAL IVP PRN ×3 (06:14→22:11)
[2019-04-07 07:43] LABS: BASOPHILS # (AUTO) 0.1 10^3/uL (0.0-0.1); BASOPHILS % (AUTO) 0.3 %; HGB - HEMOGLOBIN 14.1 g/dL (12.0-16.0); LYMPHOCYTES % (AUTO) 4.2 %; MEAN CORPUSCULAR HEMOGLOBIN 30.5 pg (27.0-31.0); MEAN CORPUSCULAR HGB CONC 31.9 g/dL (32.0-36.0); MEAN CORPUSCULAR VOLUME 95.5 fL (81.0-99.0); MEAN PLATELET VOLUME 9.5 fL (7.9-10.8); MONOCYTES # (AUTO) 0.8 10^3/uL (0.0-1.0); MONOCYTES % (AUTO) 3.4 %; NEUTROPHILS # (AUTO) 22.1 10^3/uL (1.5-6.6); NEUTROPHILS % (AUTO) 90.7 %; PLT - PLATELET COUNT 240 10^3/uL (130-450); RED BLOOD COUNT 4.63 10^6/uL (4.20-5.40); RED CELL DISTRIBUTION WIDTH 13.3 % (12.0-15.0); WHITE BLOOD COUNT 24.3 x10^3/uL (4.8-10.8)
[2019-04-07 07:57] LABS: CALCIUM 8.9 mg/dL (8.5-10.3); CREATININE 0.8 mg/dL (0.4-1.0); MAGNESIUM 2.7 mg/dL (1.7-2.8); PHOSPHORUS 2.9 mg/dL (2.5-4.6)
[2019-04-07 08:25] LABS: PLATELET ESTIMATE, MANUAL NORMAL (130-450,000) (NORMAL); PLATELET MORPHOLOGY NORMAL APPEARANCE (NORMAL); RBC MORPHOLOGY (MULTIPLE) NORMAL APPEARANCE (NORMAL)
[2019-04-07] MEDS: methylPREDNISolone SUCCINATE 40 MG/ML VIAL IVP SCH ×3 (08:40→21:07)
[2019-04-07] MEDS ORDERED: POLYETHYLENE GLYCOL 3350 17 GM PACKET PO SCH (09:00)
[2019-04-07] MEDS ORDERED: cefTRIAXone 1 GM in SODIUM CHLORIDE 0.9% MINIBAG 100 ML IV SCH (09:00)
[2019-04-07] MEDS: FAMOTIDINE 20 MG TABLET PO SCH ×2 (11:07→23:51)
[2019-04-07] MEDS: SERTRALINE 25 MG TABLET PO SCH (11:07)
[2019-04-07] MEDS: guaiFENesin 600 MG TABLET PO SCH ×2 (11:07→23:51)
[2019-04-07] MEDS: AZITHROMYCIN 250 MG TABLET PO SCH (11:08)
[2019-04-07] MEDS: lamoTRIgine 100 MG TABLET PO SCH ×2 (11:08→23:51)
[2019-04-07] MEDS: ALBUTEROL NEB 2.5 MG/3 ML INH PRN (11:14)
[2019-04-07] MEDS: SODIUM CHLORIDE FLUSH 0.9% 10 ML SYRINGE IVP PRN ×2 (11:48→14:28)
--- NOTE | 2019-04-07 12:40 | PROVIDER PROGRESS NOTE ---
Subjective - Prog Note Date Prog Note Date: 04/07/19 Prog Note Time: 12:31 - Subjective Subjective: Yesterday she was kicking, screaming.This was in relation to being asked if she wanted to be intubated for acute respiratory failure if she was severe enough with her deterioration. She refuses to be intubated. Today, her mother and father have come to visit her. They are alarmed. She was with behavioral issues since the age of approximately 6. Initially was ADD. By the age of 18 she was diagnosed as bipolar. She was hospitalized at the age of 26 for suicide attempt. Mom was temporary power of pet counselor. This was for about 5 years. For the last 10 years the patient has been stable and as such mom gave up her power of pet counselor and the patient has been responsible for her own bills, paying of groceries, shopping, etc. Both of her parents describe her as "stable" but still describe her is at risk. However she is been doing well. Takes the bus when she needs to. Parents come to the [place] twice a week to take her for groceries, doctor appointments. She erratically follows up with [facility] for her psychiatric medication. She loses ground sometimes because she has not been in for a while, and then has to have an intake examination /interview to start all over again. In the last 2 weeks, they have noticed that she is becoming erratic again. Conversations are not making sense. Speech is sometimes so slurred they cannot understand her. They have not seen her for 2 weeks. Today she is hallucinating, paranoid, agitated. Fast pressured speech.This is the worst they have seen her since her suicide attempt at the age of 26 In the last 2 to 3 months the patient is been taking herself off of her medications. She was on Klonopin, sertraline, Seroquel, and Lamictal. She did not do well off of them and Lamictal was started again. In an effort to control her anxiety she has been inhaling cannabis again. She may have been vaping as well. She was intubated a year and a half ago. Her mom seems to be describing an ARDS type lung injury. It was in association with vaping. She was told to follow-up with pulmonology because she would need a lung biopsy for abnormal infiltrates on chest x-ray. "There was a tar-like substance deposited" in her lungs on bronchoscopy. She has never followed up. Currently she is on high flow nasal cannula, 30 L. She is tachypneic. Occasionally will complete a full sentence. Able to maintain O2 sats. Tachycardic to the 1 teens Current Medications - Current Medications Current Medications: Active Medications Acetaminophen (Tylenol) 650 mg PO Q4HR PRN PRN Reason: Pain 1 to 4 Albuterol () 2.5 mg INH Q4HR PRN PRN Reason: Wheezing Last Admin: 04/07/19 11:14 Dose: 2.5 mg Albuterol/Ipratropium (Duoneb) 3 ml INH RTQ4H [facility] Last Admin: 04/07/19 07:28 Dose: 3 ml Azithromycin (Zithromax) 250 mg PO DAILY [facility] Last Admin: 04/07/19 11:08 Dose: 250 mg Benzonatate (Tessalon) 100 mg PO TID PRN PRN Reason: Cough Last Admin: 04/06/19 07:03 Dose: 100 mg Clonazepam (Klonopin) 1 mg PO TID [facility] Last Admin: 04/07/19 06:04 Dose: Not Given Famotidine (Pepcid) 20 mg PO BID [facility] Last Admin: 04/07/19 11:07 Dose: 20 mg Formoterol Fumarate (Perforomist) 20 mcg INH RTBID [facility] Guaifenesin (Mucinex) 600 mg PO BID [facility] Last Admin: 04/07/19 11:07 Dose: 600 mg Guaifenesin/Codeine Phosphate (Robitussin Ac) 5 ml PO Q6HR PRN PRN Reason: Cough Last Admin: 04/07/19 06:04 Dose: 5 ml Haloperidol (Haldol Inj) 1 mg IVP Q2H PRN PRN Reason: Agitation Sodium Chloride (Normal Saline 0.9%) 500 mls @ 0 mls/hr IV Q24H PRN PRN Reason: TKO RATE Last Admin: 04/06/19 09:31 Dose: 20 mls/hr Ceftriaxone Sodium 1 gm/ (Sodium Chloride) 100 mls @ 200 mls/hr IV DAILY [facility] Last Infusion: 04/07/19 09:40 Dose: Infused Lamotrigine (Lamictal) 100 mg PO BID [facility] Last Admin: 04/07/19 11:08 Dose: 100 mg Lorazepam (Ativan Inj (Vial)) 1 mg IVP Q2HR PRN PRN Reason: Anxiety Last Admin: 04/07/19 11:47 Dose: 1 mg Methylprednisolone (Solu-Medrol (40mg Vial)) 40 mg IVP TID [facility] Morphine Sulfate (Morphine (Carpuject)) 3 mg IVP Q2HR PRN PRN Reason: Dyspnea Last Admin: 04/07/19 11:46 Dose: 3 mg Polyethylene Glycol (Miralax) 17 gm PO DAILY [facility] Last Admin: 04/07/19 11:08 Dose: 17 gm Prochlorperazine Edisylate (Compazine Inj) 10 mg IVP Q6HR PRN PRN Reason: Nausea / Vomiting Quetiapine Fumarate (Seroquel) 500 mg PO QPM [facility] Last Admin: 04/06/19 20:13 Dose: 500 mg Sertraline HCl (Zoloft) 50 mg PO DAILY [facility] Last Admin: 04/07/19 11:07 Dose: 50 mg Sodium Chloride (Normal Saline Flush 0.9%) 10 ml IVP 0100,0900,1700 [facility] Last Admin: 04/07/19 11:09 Dose: 10 ml Sodium Chloride (Normal Saline Flush 0.9%) 10 ml IVP PRN PRN PRN Reason: NEEDED PER PROVIDER ORDERS Last Admin: 04/07/19 11:48 Dose: 10 ml Albuterol 2.5 mg INH Q4H PRN 09/18/17 Albuterol Sulf [Ventolin Hfa Inhaler] 2 puffs INH Q4HR PRN 09/18/17 clonazePAM [Clonazepam] 1 mg PO TID 09/18/17 lamoTRIgine [LaMICtal] 100 mg PO BID 09/18/17 Quetiapine Fumarate 500 mg PO QPM 04/05/19 Sertraline HCl 50 mg PO DAILY 04/05/19 Objective - Vital Signs/Intake & Output Reviewed Vital Signs: Yes Vital Signs: Vital Signs x48h Temp Pulse Pulse Resp BP Pulse Ox 04/07/19 12:00 36.7 C 114 H 36 H 122/76 96 04/07/19 11:20 36.8 C 80 31 H 92 04/07/19 11:15 117 H 30 H 04/07/19 11:00 117 H 23 89/57 L 04/07/19 09:00 103 H 36 H 105/61 99 04/07/19 08:00 36.8 C 112 H 23 125/75 94 04/07/19 07:30 117 H 51 H 04/07/19 07:00 115 H 35 H 132/87 H 95 04/07/19 06:00 117 H 38 H 145/79 H 93 04/07/19 05:00 99 35 H 132/68 H 100 Intake & Output: Intake & Output 04/04/19 04/05/19 04/06/19 04/07/19 23:59 23:59 23:59 23:59 Intake Total 509 311 2341 Output Total 550 1466 250 Balance 70 -996 1260 - Objective General Appearance: positive: Moderate distress, Other (short statured obese white female with tachypnea and tachycardia) Eyes Bilateral: positive: PERRL, EOMI Neck: positive: No JVD. negative: Stiff neck Respiratory: positive: Chest non-tender, Wheezes, Other (no use of accessory muscles in spite of fast shallow breathing, laying slightly upright) Cardiovascular: positive: Regular rate & rhythm, Tachycardia. negative: Systolic murmur, Gallop/S4, Friction rub Abdomen: positive: Non-tender, No organomegaly, Nml bowel sounds, No distention Skin: positive: Warm, Dry Extremities: positive: Non-tender, No pedal edema Neurologic/Psychiatric: positive: Motor nml, Sensation nml, Disoriented to person, Disoriented to place, Disoriented to time, Slurred/abnml speech, Other (nonstop talking causing her resp distress to worsen, paranoid we are going to hurt her, occasionally sees things (dogs) that aren't there, rapidly alternating mood of tears, anger, laughing and giggling). negative: Mood/affect nml - Lab Results Fish Bones: 04/07/19 07:38 04/07/19 07:38 Other Labs: Lab Results x24hrs 04/07/19 04/07/19 Range/Units 07:38 07:38 WBC 24.3 H (4.8-10.8) x10^3/uL RBC 4.63 (4.20-5.40) 10^6/uL Hgb 14.1 (12.0-16.0) g/dL Hct 44.2 (37.0-47.0) % MCV 95.5 (81.0-99.0) fL MCH 30.5 (27.0-31.0) pg MCHC 31.9 L (32.0-36.0) g/dL RDW 13.3 (12.0-15.0) % Plt Count 240 (130-450) 10^3/uL MPV 9.5 (7.9-10.8) fL Neut # (Auto) 22.1 H (1.5-6.6) 10^3/uL Lymph # (Auto) 1.0 L (1.5-3.5) 10^3/uL Lake # (Auto) 0.8 (0.0-1.0) 10^3/uL Eos # (Auto) 0.0 (0.0-0.7) 10^3/uL Baso # (Auto) 0.1 (0.0-0.1) 10^3/uL Absolute Nucleated RBC 0.00 x10^3/uL Nucleated RBC % 0.0 /100WBC Manual Slide Review Indicated WBC Morphology (NORMAL) Platelet Estimate NORMAL (130-450,000) (NORMAL) Platelet Morphology NORMAL APPEARANCE (NORMAL) RBC Morph Micro Appear NORMAL APPEARANCE (NORMAL) Sodium 143 (135-145) mmol/L Potassium 4.9 (3.5-5.0) mmol/L Chloride 108 (101-111) mmol/L Carbon Dioxide 26 (21-32) mmol/L Anion Gap 9.0 (6-13) BUN 18 (6-20) mg/dL Creatinine 0.8 (0.4-1.0) mg/dL Estimated GFR (MDRD) 81 L (>89) Glucose 168 H (70-100) mg/dL Calcium 8.9 (8.5-10.3) mg/dL Phosphorus 2.9 (2.5-4.6) mg/dL Magnesium 2.7 (1.7-2.8) mg/dL ABX Reporting Has patient been on IV antibiotics over the past 48 hours?: Yes Sepsis Event Note (H) - Evaluation Current Stage of Sepsis: Sepsis Possible source of Sepsis: positive: Pulmonary - Sepsis Criteria Sepsis Criteria: Recorded Temperature greater than 38.3C or Less than 36C, Recorded Heart Rate greater than 90 bpm, Recorded Respiratory Rate greater than 20, Respiratory: Increasing oxygen requirements, WBC count greater than 12,000 or less than 4000, Metabolic: lactate > 2 mmol/L Assessment/Plan - Problem List (1) Acute and chronic respiratory failure with hypoxia Impression: Due to her asthma exacerbation. [facility] does not have any beds. Family wanted her to go there for ease of contact. I have spoken to [facility] on-call pulmonary ICU. Dr. Cao. I have asked her to be transferred. But he feels that we can manage her here for right now especially in view of their lack of beds for transfers. They are reviewing cases on a case by case basis. He would like to see her stabilized with a nonrebreather as opposed to high flow nasal cannula. She cannot be transferred with high flow nasal cannula. Once I stabilize her, she may not need to be transferred from a respiratory perspective. His recommendations are antibiotics, steroids, long-acting bronchodilators, s hort acting bronchodilators, and getting her to a nonrebreather. Plan: Increase Solu-Medrol from twice daily to 3 times daily Add Perforomist. Continue duoneb and rocephin/aithromycin Try and take the high flow off of her and switch to nonrebreather. In addressing her bipolar disorder with current destabilization and risk to herself, I am going to intubate her if I need to. (2) Asthma exacerbation Impression: due to inhalation injury from cannibus to vaping. As above Qualifiers: Asthma severity: severe Asthma persistence: persistent Qualified Code(s): J45.51 - Severe persistent asthma with (acute) exacerbation (3) Community acquired pneumonia Impression: both lobes. I now have to taken to context that this young lady is possibly being affected by vaping lung injury, especially vaping cannabis. She may have lipoid pneu monitis At this time it is a matter of stabilizing her respiratory status. Intubating her if I need to. Azithromycin day #3, Rocephin day #2 (4) Bipolar disorder Impression: I also spoke to psychiatry at [facility] transfer center. Dr. Giron states that this patient can be detainable. She has delirium in association with her medical problems and destabilization of a bipolar disorder. She recommends either IV Haldol, or IM olanzapine. Plan: Check a daily EKG for QT interval. Make sure her electrolytes are stable. Use Haldol 1 to 2 mg every hour up to 10 mg IV. Qualifiers: Active/Remission status: currently active Current episode severity: severe Psychotic features: with psychotic features
[2019-04-07] MEDS: HALOPERIDOL 5 MG/ML VIAL IVP PRN ×4 (12:45→21:07)
--- NOTE | 2019-04-07 14:02 | CONSULTATION NOTE ---
Consultation Report: Call to [phone] for IV placement after multiple failed attempts. 20ga 1.88" placed at L FA with US attemptx2. Easily aspirates and flushes. Secured. Pt tolerated procedure without complication.
[2019-04-07 18:30] LABS: ABG PCO2 54 mmHg (34-45); ABG PH 7.33 (7.35-7.45)
[2019-04-07 18:31] LABS: ABG BASE EXCESS 1.1 mmol/L (-2.0-3.0); ABG HCO3 28.1 mmol/L (22.0-26.0); ABG OXYGEN SATURATION 89 % (94-98); ABG TCO2 29.8 MMOL/L (21.0-29.0)
[2019-04-07 18:34] LABS: ABG PO2 52 mmHg (80-100)
[2019-04-07] MEDS: FORMOTEROL FUMARATE NEB 20 MCG/2 ML INH SCH (18:38)
--- NOTE | 2019-04-07 20:01 | XRAY Report ---
Reason: worse hypoxia, vaping hx Procedure Date: 04/07/2019 Accession Number: [id number] / [id number] Procedure: XR - Chest 1 View X-Ray CPT Code: 88712 Final Report FULL RESULT: EXAM: CHEST RADIOGRAPHY EXAM DATE: 04/07/2019 06:54 PM. CLINICAL HISTORY: Worse hypoxia. Vaping history. COMPARISON: CHEST 1 VIEW 04/06/2019 7:49 AM. TECHNIQUE: 1 view. FINDINGS: Lungs/Pleura: Worsening pulmonary infiltrates in the lateral right middle lobe and central left upper lobe. No pleural effusion. No pneumothorax. Mediastinum: Within exam limitations, the cardiomediastinal contour is normal. Other: None. IMPRESSION: Worsening bilateral pulmonary infiltrates. RADIA
[2019-04-07] MEDS ORDERED: VANCOMYCIN PER PHARMACY 100 GM in SODIUM CHLORIDE 0.9% 250 ML IV SCH (21:00)
[2019-04-07] MEDS: CEFEPIME 2 GM in SODIUM CHLORIDE 0.9% MINIBAG 100 ML IV SCH (21:28)
[2019-04-07] MEDS ORDERED: SODIUM CHLORIDE 0.9% 500 ML ONE (21:48)
[2019-04-07] MEDS ORDERED: VANCOMYCIN INJ 1.75 GM in SODIUM CHLORIDE 0.9% 500 ML IV SCH (22:00)
[2019-04-07 22:26] LABS: ABG BASE EXCESS 2.6 mmol/L (-2.0-3.0); ABG HCO3 29.4 mmol/L (22.0-26.0); ABG OXYGEN SATURATION 96 % (94-98); ABG PCO2 54 mmHg (34-45); ABG PH 7.35 (7.35-7.45); ABG PO2 76 mmHg (80-100); ALLEN TEST POSITIVE
[2019-04-07] MEDS ORDERED: KETAMINE 500 MG/10 ML VIAL ONE (22:28)
[2019-04-07] MEDS ORDERED: SUCCINYLCHOLINE 200 MG/10 ML VIAL ONE (22:28)
[2019-04-07] MEDS ORDERED: PROPOFOL 1000 MG/100 ML 100 ML IV ONE (22:30)
[2019-04-07] MEDS ORDERED: SODIUM CHLORIDE 0.9% 1,000 ML IV ONE (22:33)
[2019-04-07] MEDS ORDERED: KETAMINE 500 MG/10 ML VIAL IVP ONE (22:39)
[2019-04-07] MEDS ORDERED: SUCCINYLCHOLINE 200 MG/10 ML VIAL IVP ONE (22:39)
[2019-04-07] MEDS: PROPOFOL 1000 MG/100 ML 100 ML IV SCH (22:50)
--- NOTE | 2019-04-07 23:07 | ED Physician Documentation ---
ED Addendum - Addendum Addendum: 04/07/19 23:05 I was called the ICU to intubate this lady for respiratory failure. On my approach into the room she was delirious, talking gibberish. Dr. Escobar had verbally consented her for intubation, but she definitely needed it, she was tachypneic, borderline hypoxic on high flow nasal cannula. Procedure note: Intubation. She was sedated initially with 100 mill grams of ketamine so I could bag her for a few minutes while we get everything else ready. Then given another he will 100 mg of ketamine and 200 mg of succinylcholine. Using direct laryngoscopy with a Marcy 4 blade the trachea was easily seen with a great view and a 7.5 cuffed tube was placed with equal bilateral breath sounds and end-tidal CO2. Attention was then turned to IV access as she had a tenuous IV. Procedure note, central line: Consent was not obtained, she was obtunded. A timeout was done.. The patient was prepped twice with ChloraPrep. I wore cap, mask, gown, sterile gloves. Full sterile sheet was utilized. Using real-time ultrasound guidance the right internal jugular vein was accessed and using Seldinger technique a triple-lumen 7 Austrian central line was placed in standard fashion and sutured into place without immediate complications. Care back to Dr. Escobar and the hospitalist team.
--- NOTE | 2019-04-07 23:37 | XRAY Report ---
Reason: Post central line placement. Procedure Date: 04/07/2019 Accession Number: [id number] / [id number] Procedure: XR - Chest for Line Placement CPT Code: Final Report FULL RESULT: EXAM: CHEST RADIOGRAPHY EXAM DATE: 04/07/2019 11:23 PM. CLINICAL HISTORY: Post central line placement. COMPARISON: CHEST 1 VIEW 04/07/2019 6:35 PM. TECHNIQUE: 1 view. FINDINGS: IMPRESSION: New right IJ line tip terminates at the cavoatrial junction. Endotracheal tube tip terminates 2.6 cm above the vesta. Lung aeration is unchanged. Dense areas of opacification predominantly in the left upper and right lower lung, stable. RADIA
[2019-04-07] MEDS: QUEtiapine 100 MG TABLET PO SCH (23:51)
[2019-04-08 00:44] LABS: ABG PH 7.23 (7.35-7.45)
[2019-04-08 00:45] LABS: ABG BASE EXCESS -1.4 mmol/L (-2.0-3.0); ABG HCO3 27.9 mmol/L (22.0-26.0); ABG OXYGEN SATURATION 98 % (94-98); ALLEN TEST POSITIVE
[2019-04-08 00:47] LABS: ABG PCO2 69 mmHg (34-45); ABG PO2 215 mmHg (80-100)
[2019-04-08] MEDS: SODIUM CHLORIDE FLUSH 0.9% 10 ML SYRINGE IVP SCH ×3 (00:50→16:10)
[2019-04-08] MEDS: PROPOFOL 1000 MG/100 ML 100 ML IV SCH ×7 (01:14→21:53)
[2019-04-08 02:09] LABS: ABG BASE EXCESS 0.7 mmol/L (-2.0-3.0); ABG HCO3 28.7 mmol/L (22.0-26.0); ABG PCO2 61 mmHg (34-45); ABG PH 7.29 (7.35-7.45); ABG PO2 81 mmHg (80-100); ABG TCO2 30.5 MMOL/L (21.0-29.0)
[2019-04-08 02:10] LABS: ABG OXYGEN SATURATION 96 % (94-98); ALLEN TEST POSITIVE
[2019-04-08] MEDS: ALBUTEROL NEB 2.5 MG/3 ML INH PRN (04:26)
[2019-04-08 05:59] LABS: BASOPHILS % (AUTO) 0.2 %; HGB - HEMOGLOBIN 12.3 g/dL (12.0-16.0); LYMPHOCYTES % (AUTO) 8.1 %; MEAN CORPUSCULAR HEMOGLOBIN 30.8 pg (27.0-31.0); MEAN CORPUSCULAR HGB CONC 31.6 g/dL (32.0-36.0); MEAN CORPUSCULAR VOLUME 97.3 fL (81.0-99.0); MEAN PLATELET VOLUME 9.6 fL (7.9-10.8); MONOCYTES % (AUTO) 6.5 %; NEUTROPHILS % (AUTO) 83.5 %; PLT - PLATELET COUNT 214 10^3/uL (130-450); RED CELL DISTRIBUTION WIDTH 13.3 % (12.0-15.0)
[2019-04-08 06:02] LABS: ABNORMAL LYMPHS % (MANUAL) 0 %; BAND NEUTROPHILS % (MANUAL) 0 %
[2019-04-08 06:05] LABS: CALCIUM 8.7 mg/dL (8.5-10.3); CREATININE 0.8 mg/dL (0.4-1.0); MAGNESIUM 2.9 mg/dL (1.7-2.8); PHOSPHORUS 2.4 mg/dL (2.5-4.6)
[2019-04-08 06:14] LABS: LYMPHOCYTES # (MANUAL) 0.9 10^3/uL (1.5-3.5); LYMPHOCYTES % (MANUAL) 4 %; MONOCYTES # (MANUAL) 0.4 10^3/uL (0.0-1.0); RBC MORPHOLOGY (MULTIPLE) NORMAL APPEARANCE (NORMAL)
[2019-04-08 06:15] LABS: DIFFERENTIAL COMMENT MANUAL DIFFERENTIAL; PLATELET ESTIMATE, MANUAL NORMAL (130-450,000) (NORMAL); PLATELET MORPHOLOGY NORMAL APPEARANCE (NORMAL)
[2019-04-08] MEDS: PANTOPRAZOLE 40 MG VIAL IVP SCH (06:16)
[2019-04-08] MEDS: methylPREDNISolone SUCCINATE 40 MG/ML VIAL IVP SCH ×3 (06:16→21:55)
[2019-04-08] MEDS ORDERED: VANCOMYCIN INJ 1.75 GM in SODIUM CHLORIDE 0.9% 500 ML IV SCH (08:00)
[2019-04-08] MEDS ORDERED: SODIUM PHOSPHATE 15 MMOL in SODIUM CHLORIDE 0.9% 250 ML IV ONE (08:00)
[2019-04-08] MEDS ORDERED: POTASSIUM PHOSPHATE 15 MMOL in SODIUM CHLORIDE 0.9% 250 ML IV ONE (08:00)
[2019-04-08] MEDS: CEFEPIME 2 GM in SODIUM CHLORIDE 0.9% MINIBAG 100 ML IV SCH ×2 (08:10→20:25)
[2019-04-08] MEDS: SERTRALINE 25 MG TABLET PO SCH (08:12)
[2019-04-08] MEDS: guaiFENesin 600 MG TABLET PO SCH ×2 (08:15→20:33)
[2019-04-08] MEDS: LORazepam 2 MG/ML VIAL IVP PRN ×3 (08:30→16:10)
--- NOTE | 2019-04-08 08:54 | XRAY Report ---
Reason: Follow up infiltrates. Procedure Date: 04/08/2019 Accession Number: [id number] / [id number] Procedure: XR - Chest 1 View X-Ray CPT Code: 58705 Final Report FULL RESULT: EXAM: CHEST RADIOGRAPHY EXAM DATE: 04/08/2019 07:18 AM. CLINICAL HISTORY: Follow up infiltrates. COMPARISON: CHEST FOR LINE PLACEMENT 04/07/2019 11:05 PM CHEST 1 VIEW 04/07/2019 6:35 PM. TECHNIQUE: 1 view. FINDINGS: Support apparatus: Endotracheal tube with tip over upper thoracic trachea. Right IJ approach central venous catheter with tip over the region of the superior cavoatrial junction. Lungs/Pleura: Grossly stable multifocal opacities over the left upper and right midlung. Low lung volumes, unchanged. No visible pleural effusion or pneumothorax. Mediastinum: Within exam limitations, the cardiomediastinal contour is normal. Other: None. IMPRESSION: 1. Grossly stable bilateral infiltrates and low lung volumes. 2. Endotracheal tube tip over upper thoracic trachea. Right IJ central venous catheter with tip over superior cavoatrial junction. RADIA
[2019-04-08] MEDS: AZITHROMYCIN INJ 500 MG in SODIUM CHLORIDE 0.9% 250 ML IV SCH (09:28)
[2019-04-08] MEDS: HALOPERIDOL 5 MG/ML VIAL IVP PRN ×2 (10:10→14:13)
[2019-04-08] MEDS: SODIUM CHLORIDE 0.9% 500 ML IV PRN (10:11)
[2019-04-08] MEDS: POLYETHYLENE GLYCOL 3350 17 GM PACKET PO SCH (10:16)
[2019-04-08] MEDS: IPRATROPIUM/ALBUTEROL 3 ML NEB INH SCH ×4 (10:40→20:00)
[2019-04-08] MEDS: FORMOTEROL FUMARATE NEB 20 MCG/2 ML INH SCH ×2 (10:40→20:00)
--- NOTE | 2019-04-08 10:43 | PHARMACY PROGRESS NOTE ---
- Therapy Status Vancomycin regimen day #: 2 (1.75 g IV q12h) Therapy status: Awaiting steady state Basis for treatment: Empirical Treatment indication: Possible pneumonia (CAP) Trough goal: 15-20 Concurrent antibiotics: cefepime 2g IV bid and azithromycin 500 mg iv daily - BRIAN Risk Risk level for Acute Kidney Injury: Moderate Acute Kidney Injury risk factors: Goal trough >15, Admission to ICU - Monitoring and Recommendation Clinical response to treatment: I&O Previous 24 hours 04/06/19 04/07/19 04/08/19 23:59 23:59 23:59 Intake Total 470 5675.453 8525.926 Output Total 5724 116 0805 Balance -996 1421.511 -204.074 Lab Results 04/08/19 04/07/19 04/06/19 05:05 07:38 11:00 BUN 23 H 18 13 Creatinine 0.8 0.8 0.7 Estimated GFR (MDRD) 81 L 81 L 94 04/05/19 14:58 BUN 6 Creatinine 0.9 Estimated GFR (MDRD) 70 L Cultures 04/05/19 16:20 Blood Blood Culture - Preliminary NO GROWTH AFTER 2 DAYS 04/05/19 14:58 Blood Blood Culture - Preliminary NO GROWTH AFTER 2 DAYS WBC count improving, patient remains afebrile since 04/06/19 Monitoring plan: Daily serum creatinine, Draw trough early Next trough due prior to maintenance dose #: 4 (steady state typically reached ~ 5th maintance dose) Next trough due (date/time): 04/09/19 @0930 Areas for additional monitoring: IV to PO when appropriate, Therapy de- escalation based on culture results, Acute Kidney Injury Pharmacy recommendation: Continue current regime
[2019-04-08] MEDS: VANCOMYCIN INJ 1.75 GM in SODIUM CHLORIDE 0.9% 500 ML IV SCH ×2 (10:54→21:55)
[2019-04-08] MEDS ORDERED: SODIUM CHLORIDE INHALATION 3 ML NEB ONE (11:28)
[2019-04-08] MEDS: HYDROmorphone 1 MG/ML CARPUJECT IVP PRN ×4 (12:29→23:49)
--- NOTE | 2019-04-08 14:16 | PROVIDER PROGRESS NOTE ---
Subjective - Prog Note Date Prog Note Date: 04/08/19 Prog Note Time: 14:14 - Subjective Subjective: Overnight she continued to have problems with anxiety, behavior, which then caused a crescendo and asthma management. She became more hypoxic, retaining CO 2. As such she went from high flow nasal cannula to intubation. Once intubated, respiratory rate has slowed. We are using Ativan, Haldol, propofol to control anxiety and wakefulness. Chest x-ray, unfortunately, shows progression of diffuse interstitial changes compatible with either infectious i nfiltrate or another type of pneumonitis. Current Medications - Current Medications Current Medications: Active Medications Acetaminophen (Tylenol) 650 mg PO Q4HR PRN PRN Reason: Pain 1 to 4 Albuterol () 2.5 mg INH Q4HR PRN PRN Reason: Wheezing Last Admin: 04/08/19 04:26 Dose: 2.5 mg Albuterol/Ipratropium (Duoneb) 3 ml INH RTQ4H [facility] Last Admin: 04/08/19 10:40 Dose: 3 ml Benzonatate (Tessalon) 100 mg PO TID PRN PRN Reason: Cough Last Admin: 04/06/19 07:03 Dose: 100 mg Formoterol Fumarate (Perforomist) 20 mcg INH RTBID [facility] Last Admin: 04/08/19 10:40 Dose: 20 mcg Guaifenesin (Mucinex) 600 mg PO BID [facility] Last Admin: 04/08/19 08:15 Dose: Not Given Guaifenesin/Codeine Phosphate (Robitussin Ac) 5 ml PO Q6HR PRN PRN Reason: Cough Last Admin: 04/07/19 17:14 Dose: 5 ml Haloperidol (Haldol Inj) 2 mg IVP Q2H PRN PRN Reason: Agitation Last Admin: 04/08/19 14:13 Dose: 2 mg Hydromorphone HCl (Dilaudid Inj Carp) 1 mg IVP Q2HR PRN PRN Reason: PAIN Last Admin: 04/08/19 12:29 Dose: 1 mg Cefepime HCl 2 gm/ Sodium (Chloride) 100 mls @ 200 mls/hr IV BID [facility] Last Infusion: 04/08/19 08:40 Dose: Infused Propofol (Diprivan) 100 mls @ 5.88 mls/hr IV .Q17H1M [facility]; Protocol Last Admin: 04/08/19 13:17 Dose: 65 mcg/kg/min, 38.22 mls/hr Azithromycin 500 mg/ Sodium (Chloride) 250 mls @ 250 mls/hr IV DAILY [facility] Last Infusion: 04/08/19 10:30 Dose: Infused Vancomycin HCl 1.75 gm/ Sodium (Chloride) 500 mls @ 250 mls/hr IV Q12H [facility] Last Infusion: 04/08/19 13:07 Dose: Infused Sodium Chloride (Normal Saline 0.9%) 500 mls @ 0 mls/hr IV Q24H PRN PRN Reason: TKO RATE Last Admin: 04/08/19 10:11 Dose: 20 mls/hr Lorazepam (Ativan Inj (Vial)) 1 mg IVP Q2HR PRN PRN Reason: Anxiety Last Admin: 04/08/19 11:48 Dose: 1 mg Methylprednisolone (Solu-Medrol (40mg Vial)) 40 mg IVP TID [facility] Last Admin: 04/08/19 13:20 Dose: 40 mg Pantoprazole Sodium (Protonix) 40 mg IVP QDAC [facility] Last Admin: 04/08/19 06:16 Dose: 40 mg Polyethylene Glycol (Miralax) 17 gm PO DAILY [facility] Last Admin: 04/08/19 10:16 Dose: 17 gm Quetiapine Fumarate (Seroquel) 500 mg NG QPM [facility] Sertraline HCl (Zoloft) 50 mg PO DAILY [facility] Last Admin: 04/08/19 08:12 Dose: 50 mg Sodium Chloride (Normal Saline Flush 0.9%) 10 ml IVP 0100,0900,1700 [facility] Last Admin: 04/08/19 08:09 Dose: 10 ml Sodium Chloride (Normal Saline Flush 0.9%) 10 ml IVP PRN PRN PRN Reason: NEEDED PER PROVIDER ORDERS Last Admin: 04/07/19 14:28 Dose: 10 ml Albuterol 2.5 mg INH Q4H PRN 09/18/17 Albuterol Sulf [Ventolin Hfa Inhaler] 2 puffs INH Q4HR PRN 09/18/17 clonazePAM [Clonazepam] 1 mg PO TID 09/18/17 lamoTRIgine [LaMICtal] 100 mg PO BID 09/18/17 Quetiapine Fumarate 500 mg PO QPM 04/05/19 Sertraline HCl 50 mg PO DAILY 04/05/19 Objective - Vital Signs/Intake & Output Reviewed Vital Signs: Yes Vital Signs: Vital Signs x48h Temp Pulse Pulse Resp BP Pulse Ox 04/08/19 14:00 80 18 116/67 97 04/08/19 13:00 79 18 119/64 97 04/08/19 12:00 36.9 C 86 28 H 151/64 H 98 04/08/19 11:00 79 21 112/57 L 94 04/08/19 10:40 83 21 04/08/19 10:00 78 20 105/67 98 04/08/19 09:00 81 20 117/69 97 04/08/19 08:00 36.9 C 80 20 110/67 96 04/08/19 07:25 82 04/08/19 07:00 81 20 100/69 95 Intake & Output: Intake & Output 04/05/19 04/06/19 04/07/19 04/08/19 23:59 23:59 23:59 23:59 Intake Total 640 883 6861.511 1885.926 Output Total 550 5567 657 1773 Balance 70 -996 1421.511 415.926 - Objective General Appearance: positive: Other (Intubated, sedated, will have episodes of wakefulness with abrupt rise in respiratory rate when this happens) ENT: positive: Pharynx nml Neck: positive: No JVD. negative: Stiff neck, Carotid bruit Respiratory: positive: Chest non-tender, Wheezes, Rhonchi. negative: Rales Cardiovascular: positive: Regular rate & rhythm. negative: Gallop/S4, Friction rub Abdomen: positive: Non-tender (there is no grimacing w palpation), No organomegaly, Nml bowel sounds, No distention Skin: positive: Warm, Dry Extremities: positive: Pedal edema Neurologic/Psychiatric: positive: Motor nml - Lab Results Fish Bones: 04/08/19 05:05 04/08/19 05:05 Other Labs: Lab Results x24hrs 04/08/19 04/08/19 04/08/19 Range/Units 05:05 05:05 01:55 WBC 22.0 H (4.8-10.8) x10^3/uL RBC 4.00 L (4.20-5.40) 10^6/uL Hgb 12.3 (12.0-16.0) g/dL Hct 38.9 (37.0-47.0) % MCV 97.3 (81.0-99.0) fL MCH 30.8 (27.0-31.0) pg MCHC 31.6 L (32.0-36.0) g/dL RDW 13.3 (12.0-15.0) % Plt Count 214 (130-450) 10^3/uL MPV 9.6 (7.9-10.8) fL Neut # (Auto) Not Reportable Lymph # (Auto) Not Reportable [place] # (Auto) Not Reportable Eos # (Auto) Not Reportable Baso # (Auto) Not Reportable Absolute Nucleated RBC Not Reportable Total Counted 100 Band Neuts % (Manual) 0 (0 - 10) % Abnorm Lymph % (Manual) 0 % Nucleated RBC % Not Reportable Neutrophils # (Manual) 20.7 H (1.5-6.6) 10^3/uL Lymphocytes # (Manual) 0.9 L (1.5-3.5) 10^3/uL Monocytes # (Manual) 0.4 (0.0-1.0) 10^3/uL Eosinophils # (Manual) 0.0 (0-0.7) 10^3/uL Basophils # (Manual) 0.0 (0-0.1) 10^3/uL Differential Comment MANUAL DIFFERENTIAL WBC Morphology NORMAL APPEARANCE (NORMAL) Platelet Estimate NORMAL (130-450,000) (NORMAL) Platelet Morphology NORMAL APPEARANCE (NORMAL) RBC Morph Micro Appear NORMAL APPEARANCE (NORMAL) Bld Gas Analysis Time 0207 Sample Site LEFT RADIAL ABG pH 7.29 L (7.35-7.45) ABG pCO2 61 H* (34-45) mmHg ABG pO2 81 (80-100) mmHg ABG HCO3 28.7 H (22.0-26.0) mmol/L ABG Total CO2 30.5 H (21.0-29.0) MMOL/L ABG O2 Saturation 96 (94-98) % ABG Base Excess 0.7 (-2.0-3.0) mmol/L Silvano Test POSITIVE Respiration Rate 18 b/min O2 Delivery Device VENTILATOR O2 Liters/Min LPM Vent Mode SIMV FiO2 50.00 Tidal Volume 400 mL PEEP 5 cmH2O Pressure Support Vent 50 cmH2O Sodium 140 (135-145) mmol/L Potassium 5.1 H (3.5-5.0) mmol/L Chloride 105 (101-111) mmol/L Carbon Dioxide 30 (21-32) mmol/L Anion Gap 5.0 L (6-13) BUN 23 H (6-20) mg/dL Creatinine 0.8 (0.4-1.0) mg/dL Estimated GFR (MDRD) 81 L (>89) Glucose 142 H (70-100) mg/dL Calcium 8.7 (8.5-10.3) mg/dL Phosphorus 2.4 L (2.5-4.6) mg/dL Magnesium 2.9 H (1.7-2.8) mg/dL 04/08/19 04/07/19 04/07/19 Range/Units 00:40 22:15 18:02 WBC (4.8-10.8) x10^3/uL RBC (4.20-5.40) 10^6/uL Hgb (12.0-16.0) g/dL Hct (37.0-47.0) % MCV (81.0-99.0) fL MCH (27.0-31.0) pg MCHC (32.0-36.0) g/dL RDW (12.0-15.0) % Plt Count (130-450) 10^3/uL MPV (7.9-10.8) fL Neut # (Auto) Lymph # (Auto) [place] # (Auto) Eos # (Auto) Baso # (Auto) Absolute Nucleated RBC Total Counted Band Neuts % (Manual) (0 - 10) % Abnorm Lymph % (Manual) % Nucleated RBC % Neutrophils # (Manual) (1.5-6.6) 10^3/uL Lymphocytes # (Manual) (1.5-3.5) 10^3/uL Monocytes # (Manual) (0.0-1.0) 10^3/uL Eosinophils # (Manual) (0-0.7) 10^3/uL Basophils # (Manual) (0-0.1) 10^3/uL Differential Comment WBC Morphology (NORMAL) Platelet Estimate (NORMAL) Platelet Morphology (NORMAL) RBC Morph Micro Appear (NORMAL) Bld Gas Analysis Time 8714 [id number] Sample Site RIGHT RADIAL RIGHT RADIAL RIGHT BRACHIAL ABG pH 7.23 L 7.35 7.33 L (7.35-7.45) ABG pCO2 69 H* 54 H 54 H (34-45) mmHg ABG pO2 215 H* 76 L 52 L* (80-100) mmHg ABG HCO3 27.9 H 29.4 H 28.1 H (22.0-26.0) mmol/L ABG Total CO2 30.0 H 31.0 H 29.8 H (21.0-29.0) MMOL/L ABG O2 Saturation 98 96 89 L (94-98) % ABG Base Excess -1.4 2.6 1.1 (-2.0-3.0) mmol/L Silvano Test POSITIVE POSITIVE NOT APPLICABLE Respiration Rate 16 b/min O2 Delivery Device VENTILATOR NASAL CANNULA NASAL CANNULA O2 Liters/Min 40.00 LPM Vent Mode SIMV FiO2 75.00 60.00 43.00 Tidal Volume 400 mL PEEP 5 cmH2O Pressure Support Vent 50 cmH2O Sodium (135-145) mmol/L Potassium (3.5-5.0) mmol/L Chloride (101-111) mmol/L Carbon Dioxide (21-32) mmol/L Anion Gap (6-13) BUN (6-20) mg/dL Creatinine (0.4-1.0) mg/dL Estimated GFR (MDRD) (>89) Glucose (70-100) mg/dL Calcium (8.5-10.3) mg/dL Phosphorus (2.5-4.6) mg/dL Magnesium (1.7-2.8) mg/dL ABX Reporting Has patient been on IV antibiotics over the past 48 hours?: Yes Sepsis Event Note (H) - Evaluation Current Stage of Sepsis: Sepsis Possible source of Sepsis: positive: Pulmonary - Sepsis Criteria Sepsis Criteria: Recorded Temperature greater than 38.3C or Less than 36C, Recorded Heart Rate greater than 90 bpm, Recorded Respiratory Rate greater than 20, Respiratory: Increasing oxygen requirements, WBC count greater than 12,000 or less than 4000, Metabolic: lactate > 2 mmol/L Assessment/Plan - Problem List (1) Acute and chronic respiratory failure with hypoxia Impression: Worse. Due to her asthma exacerbation. On 04/07 [facility] does not have any b eds. Family wanted her to go there for ease of contact. I then to [facility] on-call pulmonary ICU. Dr. Cao. I have asked her to be transferred. But he feels that we can manage her here for right now especially in view of their lack of beds for transfers. They are reviewing cases on a case by case basis. He would like to see her stabilized with a nonrebreather as opposed to high flow nasal cannula. She cannot be transferred with high flow nasal cannula. Once I stabilize her, she may not need to be transferred from a respiratory perspective. His recommendations were antibiotics, steroids, long-acting bronchodilators, short acting bronchodilators, and getting her to a nonrebreather. Between yesterday's conversation and today, these failed. I think most of the failure is due to her cycling of her maranda, anxiety. There is a slight deterioration in her chest x-ray. She is now intubated. Plan: On Solumedro 3 times daily, Perforomist. Continued duoneb and rocephin/ aithromycin Intubation Day #2 Goal is to maintain equilibrium with her manic behavior. This way she does not crescendo into acute respiratory failure again. She is on Ativan, Haldol, and will reassess in 24 hours. Family is asking, that if she is transferred, to try [facility] next. (2) Asthma exacerbation Impression: due to inhalation injury from cannibus vaping or canibus by itself As above Qualifiers: Asthma severity: severe Asthma persistence: persistent Qualified Code(s): J45.51 - Severe persistent asthma with (acute) exacerbation (3) Community acquired pneumonia Impression: both lobes. I now have to taken to context that this young lady is possibly being affected by vaping lung injury, especially vaping cannabis. She may have lipoid pneumonitis At this time it is a matter of stabilizing her respiratory status. Intubating her if I need to. Azithromycin day #4, Rocephin day #3 (4) Bipolar disorder Impression: I also spoke to psychiatry at [facility] transfer center 04/07. Dr. Giron states that this patient can be detainable. She has delirium in association with her medical problems and destabilization of a bipolar disorder. She recommends either IV Haldol, or IM olanzapine. Plan: Check a daily EKG for QT interval and so far they are. Make sure her electrolytes are stable. Use Haldol 1 to 2 mg every hour up to 10 mg IV. Qualifiers: Active/Remission status: currently active Current episode severity: severe Psychotic features: with psychotic features (2) Asthma exacerbation Qualifiers: Qualified Code(s): J45.51 - Severe persistent asthma with (acute) exacerbation
[2019-04-08] MEDS: QUEtiapine 100 MG TABLET NG SCH (20:32)
--- NOTE | 2019-04-08 21:01 | XRAY Report ---
Reason: NG TUBE/ ET TUBE Procedure Date: 04/08/2019 Accession Number: [id number] / [id number] Procedure: XR - Chest for Line Placement CPT Code: Final Report FULL RESULT: EXAM: CHEST RADIOGRAPHY EXAM DATE: 04/08/2019 08:07 PM. CLINICAL HISTORY: NG tube/ ET tube. COMPARISON: CHEST 1 VIEW 04/08/2019 6:58 AM. CHEST FOR LINE PLACEMENT 04/07/2019 11:05 PM. CHEST 1 VIEW 04/07/2019 6:35 PM. CHEST 1 VIEW 04/06/2019 7:49 AM. TECHNIQUE: 1 view. FINDINGS IMPRESSION: 1. Multifocal bilateral airspace disease, right greater than left, demonstrates gradual progression, especially when compared to the prior 04/06/2019 exam. 2. There is no effusion or definite pneumothorax demonstrated. 3. High position of the endotracheal tube noted, approximately 9.9 cm above the vesta. Orogastric tube tip projects over the left upper quadrant. 4. Normal heart size when accounting for lung volumes and technique. 5. Right IJ central venous catheter tip projects at the cavoatrial junction. 6. Prior cholecystectomy. [facility]
[2019-04-08] MEDS: CHLORHEXIDINE GLUCONATE 15 ML UDC PO SCH (21:11)
[2019-04-09] MEDS: HALOPERIDOL 5 MG/ML VIAL IVP PRN ×4 (00:01→21:03)
[2019-04-09] MEDS: SODIUM CHLORIDE FLUSH 0.9% 10 ML SYRINGE IVP SCH ×3 (00:03→17:25)
[2019-04-09] MEDS: SODIUM CHLORIDE FLUSH 0.9% 10 ML SYRINGE IVP PRN ×5 (00:04→13:41)
[2019-04-09] MEDS: PROPOFOL 1000 MG/100 ML 100 ML IV SCH ×10 (00:31→23:24)
[2019-04-09 05:15] LABS: BASOPHILS % (AUTO) 0.2 %; LYMPHOCYTES # (AUTO) 1.4 10^3/uL (1.5-3.5); LYMPHOCYTES % (AUTO) 10.4 %; MEAN CORPUSCULAR HEMOGLOBIN 30.7 pg (27.0-31.0); MEAN CORPUSCULAR HGB CONC 31.7 g/dL (32.0-36.0); MEAN CORPUSCULAR VOLUME 96.9 fL (81.0-99.0); MEAN PLATELET VOLUME 9.4 fL (7.9-10.8); MONOCYTES % (AUTO) 7.6 %; NEUTROPHILS # (AUTO) 10.7 10^3/uL (1.5-6.6); NEUTROPHILS % (AUTO) 79.5 %; PLT - PLATELET COUNT 147 10^3/uL (130-450); RED BLOOD COUNT 3.91 10^6/uL (4.20-5.40); RED CELL DISTRIBUTION WIDTH 13.1 % (12.0-15.0); WHITE BLOOD COUNT 13.5 x10^3/uL (4.8-10.8)
[2019-04-09 05:26] LABS: CALCIUM 8.2 mg/dL (8.5-10.3); CREATININE 0.8 mg/dL (0.4-1.0); MAGNESIUM 2.9 mg/dL (1.7-2.8); PHOSPHORUS 3.2 mg/dL (2.5-4.6)
[2019-04-09] MEDS: PANTOPRAZOLE 40 MG VIAL IVP SCH (06:01)
[2019-04-09] MEDS: methylPREDNISolone SUCCINATE 40 MG/ML VIAL IVP SCH ×3 (06:01→21:05)
[2019-04-09] MEDS: HYDROmorphone 1 MG/ML CARPUJECT IVP PRN ×2 (07:04→15:01)
[2019-04-09 07:20] LABS: ABG HCO3 29.3 mmol/L (22.0-26.0); ABG PCO2 57 mmHg (34-45); ABG PH 7.33 (7.35-7.45); ABG PO2 60 mmHg (80-100)
[2019-04-09 07:21] LABS: ABG OXYGEN SATURATION 92 % (94-98); ALLEN TEST POSITIVE
[2019-04-09] MEDS: FORMOTEROL FUMARATE NEB 20 MCG/2 ML INH SCH ×2 (07:53→19:46)
[2019-04-09] MEDS: IPRATROPIUM/ALBUTEROL 3 ML NEB INH SCH ×4 (07:53→19:47)
--- NOTE | 2019-04-09 08:29 | XRAY Report ---
Reason: Follow up infiltrates. Procedure Date: 04/09/2019 Accession Number: [id number] / [id number] Procedure: XR - Chest 1 View X-Ray CPT Code: 41348 Final Report FULL RESULT: EXAM: CHEST RADIOGRAPHY EXAM DATE: 04/09/2019 07:35 AM. CLINICAL HISTORY: Follow up infiltrates. COMPARISON: CHEST 1 VIEW 04/08/2019 7:43 PM. TECHNIQUE: 1 view. FINDINGS: Lungs/Pleura: Endotracheal tube tip terminates approximately 1 cm above the vesta. Low lung volumes with bilateral patchy groundglass opacities, mildly improved. No large effusion. No pneumothorax. Mediastinum: Cardiac silhouette size appears stable. Right IJ catheter tip terminates overlying the right atrium near the superior cavoatrial junction. Other: Enteric tube extends below the diaphragm. IMPRESSION: 1. Endotracheal tube tip terminates approximately 1 cm above the vesta. 2. Low lung volumes with persistent bilateral patchy groundglass opacities, mildly improved since the prior study. [facility]
[2019-04-09] MEDS: SODIUM CHLORIDE 0.9% 500 ML IV PRN ×2 (09:06→21:01)
[2019-04-09] MEDS: CEFEPIME 2 GM in SODIUM CHLORIDE 0.9% MINIBAG 100 ML IV SCH ×2 (09:08→21:00)
[2019-04-09] MEDS: CHLORHEXIDINE GLUCONATE 15 ML UDC PO SCH ×2 (09:14→21:05)
[2019-04-09] MEDS: SERTRALINE 25 MG TABLET PO SCH (09:31)
[2019-04-09] MEDS: POLYETHYLENE GLYCOL 3350 17 GM PACKET PO SCH (09:34)
[2019-04-09] MEDS: guaiFENesin 600 MG TABLET PO SCH ×2 (09:42→21:17)
[2019-04-09 09:44] LABS: VANCOMYCIN,TROUGH 19.7 ug/mL (10.0-20.0)
[2019-04-09] MEDS: AZITHROMYCIN INJ 500 MG in SODIUM CHLORIDE 0.9% 250 ML IV SCH (10:09)
[2019-04-09] MEDS: VANCOMYCIN INJ 1.75 GM in SODIUM CHLORIDE 0.9% 500 ML IV SCH ×2 (10:24→21:42)
--- NOTE | 2019-04-09 10:33 | PROVIDER PROGRESS NOTE ---
Subjective - Prog Note Date Prog Note Date: 04/09/19 Prog Note Time: 10:27 - Subjective Subjective: no new events overnight other than ET tube needs to be adjusted and brought to 23 cm. Current Medications - Current Medications Current Medications: Active Medications Acetaminophen (Tylenol) 650 mg PO Q4HR PRN PRN Reason: Pain 1 to 4 Albuterol () 2.5 mg INH Q4HR PRN PRN Reason: Wheezing Last Admin: 04/08/19 04:26 Dose: 2.5 mg Albuterol/Ipratropium (Duoneb) 3 ml INH RTQ4H ALMA Last Admin: 04/09/19 07:53 Dose: 3 ml Benzonatate (Tessalon) 100 mg PO TID PRN PRN Reason: Cough Last Admin: 04/06/19 07:03 Dose: 100 mg Chlorhexidine Gluconate (Peridex) 15 ml PO BID ON LICENSE OF [facility] Last Admin: 04/09/19 09:14 Dose: 15 ml Formoterol Fumarate (Perforomist) 20 mcg INH RTBID ALMA Last Admin: 04/09/19 07:53 Dose: 20 mcg Guaifenesin (Mucinex) 600 mg PO BID ON LICENSE OF [facility] Last Admin: 04/09/19 09:42 Dose: Not Given Guaifenesin/Codeine Phosphate (Robitussin Ac) 5 ml PO Q6HR PRN PRN Reason: Cough Last Admin: 04/07/19 17:14 Dose: 5 ml Haloperidol (Haldol Inj) 2 mg IVP Q2H PRN PRN Reason: Agitation Last Admin: 04/09/19 00:01 Dose: 2 mg Hydromorphone HCl (Dilaudid Inj Carp) 1 mg IVP Q2HR PRN PRN Reason: PAIN Last Admin: 04/09/19 07:04 Dose: 1 mg Cefepime HCl 2 gm/ Sodium (Chloride) 100 mls @ 200 mls/hr IV BID ON LICENSE OF [facility] Last Infusion: 04/09/19 09:40 Dose: Infused Propofol (Diprivan) 100 mls @ 5.88 mls/hr IV .Q17H1M ON LICENSE OF [facility]; Protocol Last Admin: 04/09/19 08:56 Dose: 60 mcg/kg/min, 35.28 mls/hr Azithromycin 500 mg/ Sodium (Chloride) 250 mls @ 250 mls/hr IV DAILY ON LICENSE OF [facility] Last Admin: 04/09/19 10:09 Dose: 250 mls/hr Vancomycin HCl 1.75 gm/ Sodium (Chloride) 500 mls @ 250 mls/hr IV Q12H ON LICENSE OF [facility] Last Admin: 04/09/19 10:24 Dose: 250 mls/hr Sodium Chloride (Normal Saline 0.9%) 500 mls @ 0 mls/hr IV Q24H PRN PRN Reason: TKO RATE Last Infusion: 04/09/19 09:10 Dose: 0 mls/hr Lorazepam (Ativan Inj (Vial)) 1 mg IVP Q2HR PRN PRN Reason: Anxiety Last Admin: 04/08/19 16:10 Dose: 1 mg Methylprednisolone (Solu-Medrol (40mg Vial)) 40 mg IVP TID ON LICENSE OF [facility] Last Admin: 04/09/19 06:01 Dose: 40 mg Pantoprazole Sodium (Protonix) 40 mg IVP QDAC ON LICENSE OF [facility] Last Admin: 04/09/19 06:01 Dose: 40 mg Polyethylene Glycol (Miralax) 17 gm PO DAILY ON LICENSE OF [facility] Last Admin: 04/09/19 09:34 Dose: 17 gm Quetiapine Fumarate (Seroquel) 500 mg NG QPM ON LICENSE OF [facility] Last Admin: 04/08/19 20:32 Dose: 500 mg Sertraline HCl (Zoloft) 50 mg PO DAILY ON LICENSE OF [facility] Last Admin: 04/09/19 09:31 Dose: 50 mg Sodium Chloride (Normal Saline Flush 0.9%) 10 ml IVP 0100,0900,1700 ON LICENSE OF [facility] Last Admin: 04/09/19 10:31 Dose: 10 ml Sodium Chloride (Normal Saline Flush 0.9%) 10 ml IVP PRN PRN PRN Reason: NEEDED PER PROVIDER ORDERS Last Admin: 04/09/19 09:30 Dose: 30 ml Albuterol 2.5 mg INH Q4H PRN 09/18/17 Albuterol Sulf [Ventolin Hfa Inhaler] 2 puffs INH Q4HR PRN 09/18/17 clonazePAM [Clonazepam] 1 mg PO TID 09/18/17 lamoTRIgine [LaMICtal] 100 mg PO BID 09/18/17 Quetiapine Fumarate 500 mg PO QPM 04/05/19 Sertraline HCl 50 mg PO DAILY 04/05/19 Objective - Vital Signs/Intake & Output Reviewed Vital Signs: Yes Vital Signs: Vital Signs Temp Pulse Pulse Resp BP Pulse Ox 04/09/19 10:00 72 20 164/82 H 98 04/09/19 09:07 80 04/09/19 09:00 76 20 139/77 H 98 04/09/19 08:00 68 20 04/09/19 07:57 36.7 C 69 20 157/79 H 98 04/09/19 07:42 69 Intake & Output: Intake & Output 04/06/19 04/07/19 04/08/19 04/09/19 23:59 23:59 23:59 23:59 Intake Total 470 3561.895 5260.743 1859.666 Output Total 1899 610 1736 750 Balance -996 1421.511 432.217 4463.666 - Objective General Appearance: positive: Other (on propofol, haldol, dilaudid, ativan so will open eyes but not to stimuli. Not tracking. Dad has been at beside for 2 days) Eyes Bilateral: positive: PERRL, EOMI ENT: positive: Pharynx nml Neck: positive: No JVD Respiratory: positive: Chest non-tender, No respiratory distress, Wheezes, Rhonchi. negative: Rales Cardiovascular: positive: Regular rate & rhythm. negative: Systolic murmur, Gallop/S4 Abdomen: positive: Non-tender, No organomegaly, Nml bowel sounds, No distention Skin: positive: Warm, Dry Extremities: positive: Pedal edema Neurologic/Psychiatric: positive: CN's nml (2-12), Motor nml - Lab Results Fish Bones: 04/09/19 04:45 04/09/19 04:45 Other Labs: Lab Results x24hrs 04/09/19 04/09/19 04/09/19 Range/Units 09:28 07:10 04:45 WBC (4.8-10.8) x10^3/uL RBC (4.20-5.40) 10^6/uL Hgb (12.0-16.0) g/dL Hct (37.0-47.0) % MCV (81.0-99.0) fL MCH (27.0-31.0) pg MCHC (32.0-36.0) g/dL RDW (12.0-15.0) % Plt Count (130-450) 10^3/uL MPV (7.9-10.8) fL Neut # (Auto) (1.5-6.6) 10^3/uL Lymph # (Auto) (1.5-3.5) 10^3/uL [place] # (Auto) (0.0-1.0) 10^3/uL Eos # (Auto) (0.0-0.7) 10^3/uL Baso # (Auto) (0.0-0.1) 10^3/uL Absolute Nucleated RBC x10^3/uL Nucleated RBC % /100WBC Bld Gas Analysis Time 0710 Sample Site RIGHT BRACHIAL ABG pH 7.33 L (7.35-7.45) ABG pCO2 57 H (34-45) mmHg ABG pO2 60 L (80-100) mmHg ABG HCO3 29.3 H (22.0-26.0) mmol/L ABG Total CO2 31.0 H (21.0-29.0) MMOL/L ABG O2 Saturation 92 L (94-98) % ABG Base Excess 2.0 (-2.0-3.0) mmol/L Silvano Test POSITIVE Respiration Rate 18 b/min Vent Mode SIMV FiO2 50.00 Tidal Volume 400 mL PEEP 5 cmH2O Pressure Support Vent 10 cmH2O Sodium (135-145) mmol/L Potassium (3.5-5.0) mmol/L Chloride (101-111) mmol/L Carbon Dioxide (21-32) mmol/L Anion Gap (6-13) BUN (6-20) mg/dL Creatinine (0.4-1.0) mg/dL Estimated GFR (MDRD) (>89) Glucose (70-100) mg/dL Calcium (8.5-10.3) mg/dL Phosphorus (2.5-4.6) mg/dL Magnesium (1.7-2.8) mg/dL Albumin 2.9 L (3.2-5.5) g/dL Last Dose Date 04/09/19 Last Dose Time 0020 Vancomycin Trough 19.7 (10.0-20.0) ug/mL 04/09/19 04/09/19 Range/Units 04:45 04:45 WBC 13.5 H (4.8-10.8) x10^3/uL RBC 3.91 L (4.20-5.40) 10^6/uL Hgb 12.0 (12.0-16.0) g/dL Hct 37.9 (37.0-47.0) % MCV 96.9 (81.0-99.0) fL MCH 30.7 (27.0-31.0) pg MCHC 31.7 L (32.0-36.0) g/dL RDW 13.1 (12.0-15.0) % Plt Count 147 (130-450) 10^3/uL MPV 9.4 (7.9-10.8) fL Neut # (Auto) 10.7 H (1.5-6.6) 10^3/uL Lymph # (Auto) 1.4 L (1.5-3.5) 10^3/uL [place] # (Auto) 1.0 (0.0-1.0) 10^3/uL Eos # (Auto) 0.0 (0.0-0.7) 10^3/uL Baso # (Auto) 0.0 (0.0-0.1) 10^3/uL Absolute Nucleated RBC 0.00 x10^3/uL Nucleated RBC % 0.0 /100WBC Bld Gas Analysis Time Sample Site ABG pH (7.35-7.45) ABG pCO2 (34-45) mmHg ABG pO2 (80-100) mmHg ABG HCO3 (22.0-26.0) mmol/L ABG Total CO2 (21.0-29.0) MMOL/L ABG O2 Saturation (94-98) % ABG Base Excess (-2.0-3.0) mmol/L Silvano Test Respiration Rate b/min Vent Mode FiO2 Tidal Volume mL PEEP cmH2O Pressure Support Vent cmH2O Sodium 142 (135-145) mmol/L Potassium 4.6 (3.5-5.0) mmol/L Chloride 107 (101-111) mmol/L Carbon Dioxide 30 (21-32) mmol/L Anion Gap 5.0 L (6-13) BUN 22 H (6-20) mg/dL Creatinine 0.8 (0.4-1.0) mg/dL Estimated GFR (MDRD) 81 L (>89) Glucose 138 H (70-100) mg/dL Calcium 8.2 L (8.5-10.3) mg/dL Phosphorus 3.2 (2.5-4.6) mg/dL Magnesium 2.9 H (1.7-2.8) mg/dL Albumin (3.2-5.5) g/dL Last Dose Date Last Dose Time Vancomycin Trough (10.0-20.0) ug/mL Sepsis Event Note (H) - Evaluation Current Stage of Sepsis: Sepsis Possible source of Sepsis: positive: Pulmonary - Sepsis Criteria Sepsis Criteria: Recorded Temperature greater than 38.3C or Less than 36C, Recorded Heart Rate greater than 90 bpm, Recorded Respiratory Rate greater than 20, Respiratory: Increasing oxygen requirements, WBC count greater than 12,000 or less than 4000, Metabolic: lactate > 2 mmol/L Assessment/Plan - Problem List (1) Acute and chronic respiratory failure with hypoxia Impression: Worsened in spite of nebs, steroids, abx and went on BiPAP then intubated 04/07 pm. She's been stable since with O2 sats stable on Fi02 of 50%, TV 400, RR 20. Failure was due to her asthma exacerbation. On 04/07 [facility] does not have any beds. Family wanted her to go there for ease of contact. I then to [facility] on-call pulmonary ICU. Dr. Cao. I have asked her to be transferred. But he feels that we can manage her here for right now especially in view of their lack of beds for transfers. They are reviewing cases on a case by case basis. He would like to see her stabilized with a nonrebreather as opposed to high flow nasal cannula. She cannot be transferred with high flow nasal cannula. Once I stabilize her, she may not need to be transferred from a respiratory perspective. His recommendations were antibiotics, steroids, long-acting bronchodilators, s hort acting bronchodilators, and getting her to a nonrebreather. By 04/07 pm those measures failed. I think most of the failure is due to her cycling of her maranda, anxiety. She was intubated ~23:00 on 04/07. There was a slight deterioration in her CXR 04/08 am but this am there is slight improvement. Her setting are TV 400, RR 20, Fio2 60, Peep 5, PS14, peak pressures 32, plateau pressures 21. Plan: Continue +Solumedrol 3 times daily, +Perforomist. +duoneb and +rocephin/aithromycin Intubation Day #2 Goal is to maintain equilibrium with her manic behavior. This way she does not crescendo into acute respiratory failure again. She is on Ativan, Haldol, and after assessment today, I will not request transfer. Once her Fi02 requirement goes down, will try to wean. I will order a CT of the chest to assess interstitial changes, if any, once she is off the ventilator. Family is asking, that if she is transferred, to try [facility] (2) Asthma exacerbation Impression: due to inhalation injury from cannibus vaping or canibus by itself As above Qualifiers: Asthma severity: severe Asthma persistence: persistent Qualified Code(s): J45.51 - Severe persistent asthma with (acute) exacerbation (3) Community acquired pneumonia Impression: both lobes. I now have to taken to context that this young lady is possibly being affected by vaping lung injury, especially vaping cannabis. 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 Dr. Giron states that this patient can be detainable. She has delirium in association with her medical problems and destabilization of a bipolar disorder. She recommends either IV Haldol, or IM olanzapine. Plan: Check a daily EKG for QT interval and so far they are. Make sure her electrolytes are stable. Use Haldol 1 to 2 mg every hour up to 10 mg IV. Qualifiers: Active/Remission status: currently active Current episode severity: severe Psychotic features: with psychotic features (2) Asthma exacerbation Qualifiers: Qualified Code(s): J45.51 - Severe persistent asthma with (acute) exacerbation
--- NOTE | 2019-04-09 10:45 | PHARMACY PROGRESS NOTE ---
- Therapy Status Vancomycin regimen day #: 3 (1.75g IV q12h) Therapy status: Trough therapeutic (possible not quite at steady state yet, as no loading dose given) Basis for treatment: Empirical Treatment indication: presumed CAP Trough goal: 15-20 Concurrent antibiotics: Azithromycin 500mg IV q24h & Cefepime 2g IV BID - BRIAN Risk Risk level for Acute Kidney Injury: Moderate Acute Kidney Injury risk factors: Goal trough >15, Admission to ICU - Monitoring and Recommendation Clinical response to treatment: I&O Previous 24 hours 04/07/19 04/08/19 04/09/19 23:59 23:59 23:59 Intake Total 0006.967 7636.743 1859.666 Output Total 550 1928 750 Balance 1421.511 144.096 8982.666 Lab Results 04/09/19 04/08/19 04/07/19 04:45 05:05 07:38 BUN 22 H 23 H 18 Creatinine 0.8 0.8 0.8 Estimated GFR (MDRD) 81 L 81 L 81 L 04/06/19 04/05/19 11:00 14:58 BUN 13 6 Creatinine 0.7 0.9 Estimated GFR (MDRD) 94 70 L Vancomycin Monitoring 04/09/19 09:28 Vancomycin Trough 19.7 Cultures 04/05/19 16:20 Blood Blood Culture - Preliminary NO GROWTH AFTER 2 DAYS 04/05/19 14:58 Blood Blood Culture - Preliminary NO GROWTH AFTER 2 DAYS Monitoring plan: Daily serum creatinine Areas for additional monitoring: IV to PO when appropriate, Therapy de- escalation based on culture results, Acute Kidney Injury Pharmacy recommendation: Continue current regime (Continue current vancomycin regimen - however, recommend review of Azithromycin therapy. Course thus far 04/06: 250mg PO x1 & 500mg IV x1, 04/07: 250mg PO x1, 04/08: 500mg IV x1, 04/08: 500mg IV x1, 04/09 500mg IV.)
[2019-04-09 16:15] LABS: HCG UR QUAL NEGATIVE
[2019-04-09] MEDS: LORazepam 2 MG/ML VIAL IVP PRN (19:16)
[2019-04-09] MEDS: QUEtiapine 100 MG TABLET NG SCH (21:08)
[2019-04-10] MEDS: SODIUM CHLORIDE FLUSH 0.9% 10 ML SYRINGE IVP SCH ×4 (00:56→16:55)
[2019-04-10] MEDS: LORazepam 2 MG/ML VIAL IVP PRN ×4 (00:56→19:42)
[2019-04-10] MEDS: PROPOFOL 1000 MG/100 ML 100 ML IV SCH ×6 (01:33→12:51)
[2019-04-10] MEDS: HYDROmorphone 1 MG/ML CARPUJECT IVP PRN ×5 (02:44→21:56)
[2019-04-10] MEDS: ALBUTEROL NEB 2.5 MG/3 ML INH PRN (03:39)
[2019-04-10] MEDS: SODIUM CHLORIDE FLUSH 0.9% 10 ML SYRINGE IVP PRN ×13 (04:43→19:51)
[2019-04-10 05:01] LABS: BASOPHILS % (AUTO) 0.2 %; EOSINOPHILS % (AUTO) 0.2 %; LYMPHOCYTES # (AUTO) 2.3 10^3/uL (1.5-3.5); LYMPHOCYTES % (AUTO) 18.5 %; MEAN CORPUSCULAR HEMOGLOBIN 31.1 pg (27.0-31.0); MEAN CORPUSCULAR HGB CONC 33.2 g/dL (32.0-36.0); MEAN CORPUSCULAR VOLUME 93.5 fL (81.0-99.0); MEAN PLATELET VOLUME 9.2 fL (7.9-10.8); MONOCYTES # (AUTO) 1.1 10^3/uL (0.0-1.0); MONOCYTES % (AUTO) 8.9 %; NEUTROPHILS # (AUTO) 8.6 10^3/uL (1.5-6.6); NEUTROPHILS % (AUTO) 68.5 %; PLT - PLATELET COUNT 138 10^3/uL (130-450); RED BLOOD COUNT 3.86 10^6/uL (4.20-5.40); RED CELL DISTRIBUTION WIDTH 12.6 % (12.0-15.0); WHITE BLOOD COUNT 12.6 x10^3/uL (4.8-10.8)
[2019-04-10 05:39] LABS: CALCIUM 8.4 mg/dL (8.5-10.3); CREATININE 0.5 mg/dL (0.4-1.0); MAGNESIUM 2.6 mg/dL (1.7-2.8); PHOSPHORUS 2.6 mg/dL (2.5-4.6)
[2019-04-10] MEDS: methylPREDNISolone SUCCINATE 40 MG/ML VIAL IVP SCH ×3 (05:47→21:53)
[2019-04-10] MEDS: PANTOPRAZOLE 40 MG VIAL IVP SCH (06:02)
--- NOTE | 2019-04-10 06:24 | XRAY Report ---
Reason: followup of infiltrate on vent Procedure Date: 04/10/2019 Accession Number: [id number] / [id number] Procedure: XR - Chest 1 View X-Ray CPT Code: 77251 Final Report FULL RESULT: EXAM: CHEST RADIOGRAPHY EXAM DATE: 04/10/2019 06:05 AM. CLINICAL HISTORY: Followup of infiltrate on vent. COMPARISON: CHEST 1 VIEW 04/09/2019 7:14 AM. TECHNIQUE: 1 view. FINDINGS: Lungs/Pleura: Slight decrease in the multifocal opacities. No pleural effusion or pneumothorax. Mediastinum: Within exam limitations, the cardiomediastinal contour is normal. Other: Tip of the endotracheal tube located 4.0 cm above the vesta. Tip of the right IJ catheter is located in the region of the junction of the SVC and right atrium. The enteric tube courses below the diaphragm into the region of the stomach with tip off the confines of the film. IMPRESSION: Decreased multifocal atelectasis versus consolidation. Support hardware are located in standard positions, as described above. RADIA
[2019-04-10 06:36] LABS: ABG BASE EXCESS 1.7 mmol/L (-2.0-3.0); ABG HCO3 26.3 mmol/L (22.0-26.0); ABG OXYGEN SATURATION 99 % (94-98); ABG PCO2 41 mmHg (34-45); ABG PH 7.42 (7.35-7.45); ABG PO2 137 mmHg (80-100); ABG TCO2 27.6 MMOL/L (21.0-29.0); ALLEN TEST POSITIVE
[2019-04-10] MEDS: FORMOTEROL FUMARATE NEB 20 MCG/2 ML INH SCH ×2 (07:50→20:04)
[2019-04-10] MEDS: IPRATROPIUM/ALBUTEROL 3 ML NEB INH SCH ×4 (07:50→19:17)
[2019-04-10] MEDS: CEFEPIME 2 GM in SODIUM CHLORIDE 0.9% MINIBAG 100 ML IV SCH ×2 (08:58→20:47)
[2019-04-10] MEDS: CHLORHEXIDINE GLUCONATE 15 ML UDC PO SCH ×2 (09:18→22:11)
[2019-04-10] MEDS: SERTRALINE 25 MG TABLET PO SCH (09:25)
[2019-04-10] MEDS: POLYETHYLENE GLYCOL 3350 17 GM PACKET PO SCH (09:27)
[2019-04-10] MEDS: guaiFENesin 600 MG TABLET PO SCH ×2 (09:27→21:47)
[2019-04-10] MEDS: AZITHROMYCIN INJ 500 MG in SODIUM CHLORIDE 0.9% 250 ML IV SCH (09:35)
[2019-04-10] MEDS: SENNA 8.6 MG TABLET PO SCH (09:39)
[2019-04-10] MEDS: DOCUSATE SODIUM 250 MG CAPSULE PO SCH (09:48)
[2019-04-10 09:58] LABS: LDL CHOLESTEROL,DIRECT 53 mg/dL
[2019-04-10] MEDS: VANCOMYCIN INJ 1.75 GM in SODIUM CHLORIDE 0.9% 500 ML IV SCH ×2 (10:01→22:00)
[2019-04-10] MEDS: HALOPERIDOL 5 MG/ML VIAL IVP PRN ×2 (10:09→14:28)
[2019-04-10] MEDS: DEXMEDETOMIDINE 400 MCG/100 ML 100 ML IV PRN ×3 (14:02→23:57)
--- NOTE | 2019-04-10 14:21 | PROVIDER PROGRESS NOTE ---
Subjective - Prog Note Date Prog Note Date: 04/10/19 Prog Note Time: 14:24 - Subjective Subjective: There have been no new events between yesterday and today. She is stable on her current ventilatory settings. No fever, tachycardia, but her triglyceride level is quite elevated on propofol. When sedation lightens, she does become tachypneic, starts to struggle against the ventilator. I have asked Damian for records twice now. Damian has sent me an encounter for late April 2018 when she had a kidney stone. She then returned in May 2018 for lithotripsy. Since that was not the encounter was looking for I asked him to please send me any encounter where she had pneumonia and respiratory failure. They sent me an encounter from January 27, 2018. In that encounter their past medical history is that of MRSA pneumonia and sepsis with intubation from respiratory failure. There is no date associated with that notation. She then had laparoscopic surgery for ectopic in January 09, 2018. She was seen January 16, 2018 for postop pain and dyspnea and near syncope and dizziness. She returned to them January 27, 2018 and was admitted for bilateral groundglass opacities treated as multi lobar bilateral pneumonia. She responded to empiric antibiotic therapy, steroids, nebulizers. She was not intubated. I suspect that the severe infection, pneumonia, intubation encounter the family is referring to has to deal with the MRSA pneumonia. I do not have those records. Current Medications - Current Medications Current Medications: Active Medications Acetaminophen (Tylenol) 650 mg PO Q4HR PRN PRN Reason: Pain 1 to 4 Albuterol () 2.5 mg INH Q4HR PRN PRN Reason: Wheezing Last Admin: 04/10/19 03:39 Dose: 2.5 mg Albuterol/Ipratropium (Duoneb) 3 ml INH RTQ4H [facility] Last Admin: 04/10/19 12:42 Dose: 3 ml Benzonatate (Tessalon) 100 mg PO TID PRN PRN Reason: Cough Last Admin: 04/06/19 07:03 Dose: 100 mg Chlorhexidine Gluconate (Peridex) 15 ml PO BID [facility] Last Admin: 04/10/19 09:18 Dose: 15 ml Docusate Sodium (Colace 250mg Capsule) 250 - 500 mg PO DAILY [facility] Last Admin: 04/10/19 09:48 Dose: 250 mg Formoterol Fumarate (Perforomist) 20 mcg INH RTBID [facility] Last Admin: 04/10/19 07:50 Dose: 20 mcg Guaifenesin (Mucinex) 600 mg PO BID [facility] Last Admin: 04/10/19 09:27 Dose: Not Given Guaifenesin/Codeine Phosphate (Robitussin Ac) 5 ml PO Q6HR PRN PRN Reason: Cough Last Admin: 04/07/19 17:14 Dose: 5 ml Haloperidol (Haldol Inj) 2 mg IVP Q2H PRN PRN Reason: Agitation Last Admin: 04/10/19 10:09 Dose: 2 mg Heparin Sodium (Beef Lung) () 30 - 50 unit IVP PRN PRN PRN Reason: Central Line Protocol (<24 hr) Last Admin: 04/10/19 04:44 Dose: 30 unit Hydromorphone HCl (Dilaudid Inj Carp) 1 mg IVP Q2HR PRN PRN Reason: PAIN Last Admin: 04/10/19 10:39 Dose: 1 mg Cefepime HCl 2 gm/ Sodium (Chloride) 100 mls @ 200 mls/hr IV BID [facility] Last Infusion: 04/10/19 09:30 Dose: Infused Azithromycin 500 mg/ Sodium (Chloride) 250 mls @ 250 mls/hr IV DAILY [facility] Last Infusion: 04/10/19 10:40 Dose: Infused Vancomycin HCl 1.75 gm/ Sodium (Chloride) 500 mls @ 250 mls/hr IV Q12H [facility] Last Infusion: 04/10/19 12:05 Dose: Infused Sodium Chloride (Normal Saline 0.9%) 500 mls @ 0 mls/hr IV Q24H PRN PRN Reason: TKO RATE Last Infusion: 04/10/19 10:40 Dose: 20 mls/hr Dexmedetomidine/Sodium Chloride (Precedex Premix) 100 mls @ 7.313 mls/hr IV .[id number] PRN; Protocol PRN Reason: Agitation Last Admin: 04/10/19 14:02 Dose: 0.3 mcg/kg/hr, 7.313 mls/hr Lorazepam (Ativan Inj (Vial)) 1 mg IVP Q2HR PRN PRN Reason: Anxiety Last Admin: 04/10/19 00:56 Dose: 1 mg Methylprednisolone (Solu-Medrol (40mg Vial)) 40 mg IVP TID [facility] Last Admin: 04/10/19 13:53 Dose: 40 mg Pantoprazole Sodium (Protonix) 40 mg IVP QDAC [facility] Last Admin: 04/10/19 06:02 Dose: 40 mg Polyethylene Glycol (Miralax) 17 gm PO DAILY [facility] Last Admin: 04/10/19 09:27 Dose: 17 gm Quetiapine Fumarate (Seroquel) 500 mg NG QPM [facility] Last Admin: 04/09/19 21:08 Dose: 500 mg Senna (Senokot) 8.6 - 17.2 mg PO DAILY [facility] Last Admin: 04/10/19 09:39 Dose: 17.2 mg Sertraline HCl (Zoloft) 50 mg PO DAILY [facility] Last Admin: 04/10/19 09:25 Dose: 50 mg Sodium Chloride (Normal Saline Flush 0.9%) 10 ml IVP 0100,0900,1700 [facility] Last Admin: 04/10/19 07:59 Dose: 10 ml Sodium Chloride (Normal Saline Flush 0.9%) 10 ml IVP PRN PRN PRN Reason: NEEDED PER PROVIDER ORDERS Last Admin: 04/10/19 14:17 Dose: 10 ml Albuterol 2.5 mg INH Q4H PRN 09/18/17 Albuterol Sulf [Ventolin Hfa Inhaler] 2 puffs INH Q4HR PRN 09/18/17 clonazePAM [Clonazepam] 1 mg PO TID 09/18/17 lamoTRIgine [LaMICtal] 100 mg PO BID 09/18/17 Quetiapine Fumarate 500 mg PO QPM 04/05/19 Sertraline HCl 50 mg PO DAILY 04/05/19 Objective - Vital Signs/Intake & Output Reviewed Vital Signs: Yes Vital Signs: Vital Signs Temp Pulse Pulse Resp BP Pulse Ox 04/10/19 14:20 68 130/78 04/10/19 14:11 65 20 120/59 L 95 04/10/19 13:25 70 04/10/19 13:00 71 66 20 115/66 95 04/10/19 12:00 37.1 C 62 20 121/66 94 04/10/19 11:00 64 20 110/57 L 98 04/10/19 10:30 78 Intake & Output: Intake & Output 04/07/19 04/08/19 04/09/1904/10/19 23:59 23:59 23:59 23:59 Intake Total 8316.422 7903.743 4146.612 1979.423 Output Total 550 8078 1814 1455 Balance 1421.511 195.571 7359.612 524.423 - Objective General Appearance: positive: No acute distress, Other (morbidly obese white female who looks stated age, on propofol, sedated, with ET tube in place) Eyes Bilateral: positive: PERRL ENT: positive: Pharynx nml Neck: positive: No JVD. negative: Stiff neck Respiratory: positive: Chest non-tender, No respiratory distress, Wheezes, Rhonchi. negative: Rales Cardiovascular: positive: Regular rate & rhythm. negative: Gallop/S4, Friction rub Abdomen: positive: Non-tender, No organomegaly, Nml bowel sounds, No distention Skin: positive: Warm, Dry Extremities: positive: Pedal edema Neurologic/Psychiatric: positive: Other (intubated on propofol, will open eyes and gaze without purpose, will move arms and legs if sedtion lightens) - Lab Results Fish Bones: 04/10/19 04:35 04/10/19 04:35 Other Labs: Lab Results x24hrs 04/10/19 04/10/19 04/10/19 Range/Units 06:26 04:35 04:35 WBC 12.6 H (4.8-10.8) x10^3/uL RBC 3.86 L (4.20-5.40) 10^6/uL Hgb 12.0 (12.0-16.0) g/dL Hct 36.1 L (37.0-47.0) % MCV 93.5 (81.0-99.0) fL MCH 31.1 H (27.0-31.0) pg MCHC 33.2 (32.0-36.0) g/dL RDW 12.6 (12.0-15.0) % Plt Count 138 (130-450) 10^3/uL MPV 9.2 (7.9-10.8) fL Neut # (Auto) 8.6 H (1.5-6.6) 10^3/uL Lymph # (Auto) 2.3 (1.5-3.5) 10^3/uL [place] # (Auto) 1.1 H (0.0-1.0) 10^3/uL Eos # (Auto) 0.0 (0.0-0.7) 10^3/uL Baso # (Auto) 0.0 (0.0-0.1) 10^3/uL Absolute Nucleated RBC 0.00 x10^3/uL Nucleated RBC % 0.0 /100WBC Bld Gas Analysis Time 0634 Sample Site RIGHT RADIAL ABG pH 7.42 (7.35-7.45) ABG pCO2 41 (34-45) mmHg ABG pO2 137 H (80-100) mmHg ABG HCO3 26.3 H (22.0-26.0) mmol/L ABG Total CO2 27.6 (21.0-29.0) MMOL/L ABG O2 Saturation 99 H (94-98) % ABG Base Excess 1.7 (-2.0-3.0) mmol/L Silvano Test POSITIVE Respiration Rate 20 b/min O2 Delivery Device VENTILATOR Vent Mode SIMV FiO2 50.00 Tidal Volume 400 mL PEEP 5 cmH2O Pressure Support Vent 14 cmH2O Sodium 142 (135-145) mmol/L Potassium 4.4 (3.5-5.0) mmol/L Chloride 107 (101-111) mmol/L Carbon Dioxide 29 (21-32) mmol/L Anion Gap 6.0 (6-13) BUN 20 (6-20) mg/dL Creatinine 0.5 (0.4-1.0) mg/dL Estimated GFR (MDRD) 139 (>89) Glucose 118 H (70-100) mg/dL POC Whole Bld Glucose (70 - 100) mg/dL Calcium 8.4 L (8.5-10.3) mg/dL Phosphorus 2.6 (2.5-4.6) mg/dL Magnesium 2.6 (1.7-2.8) mg/dL Triglycerides ( - 149) mg/dL LDL Cholesterol Direct ( - 129) mg/dL dLDL/HDL Ratio Ur Specific [place] (1.002-1.030) Urine HCG, Qual 04/09/19 04/09/19 04/09/19 Range/Units 19:35 16:03 05:00 WBC (4.8-10.8) x10^3/uL RBC (4.20-5.40) 10^6/uL Hgb (12.0-16.0) g/dL Hct (37.0-47.0) % MCV (81.0-99.0) fL MCH (27.0-31.0) pg MCHC (32.0-36.0) g/dL RDW (12.0-15.0) % Plt Count (130-450) 10^3/uL MPV (7.9-10.8) fL Neut # (Auto) (1.5-6.6) 10^3/uL Lymph # (Auto) (1.5-3.5) 10^3/uL [place] # (Auto) (0.0-1.0) 10^3/uL Eos # (Auto) (0.0-0.7) 10^3/uL Baso # (Auto) (0.0-0.1) 10^3/uL Absolute Nucleated RBC x10^3/uL Nucleated RBC % /100WBC Bld Gas Analysis Time Sample Site ABG pH (7.35-7.45) ABG pCO2 (34-45) mmHg ABG pO2 (80-100) mmHg ABG HCO3 (22.0-26.0) mmol/L ABG Total CO2 (21.0-29.0) MMOL/L ABG O2 Saturation (94-98) % ABG Base Excess (-2.0-3.0) mmol/L Silvano Test Respiration Rate b/min O2 Delivery Device Vent Mode FiO2 Tidal Volume mL PEEP cmH2O Pressure Support Vent cmH2O Sodium (135-145) mmol/L Potassium (3.5-5.0) mmol/L Chloride (101-111) mmol/L Carbon Dioxide (21-32) mmol/L Anion Gap (6-13) BUN (6-20) mg/dL Creatinine (0.4-1.0) mg/dL Estimated GFR (MDRD) (>89) Glucose (70-100) mg/dL POC Whole Bld Glucose 128 H (70 - 100) mg/dL Calcium (8.5-10.3) mg/dL Phosphorus (2.5-4.6) mg/dL Magnesium (1.7-2.8) mg/dL Triglycerides 728 H ( - 149) mg/dL LDL Cholesterol Direct 53 ( - 129) mg/dL dLDL/HDL Ratio TNP Ur Specific [place] 1.025 (1.002-1.030) Urine HCG, Qual NEGATIVE Sepsis Event Note (H) - Evaluation Current Stage of Sepsis: Sepsis Possible source of Sepsis: positive: Pulmonary - Sepsis Criteria Sepsis Criteria: Recorded Temperature greater than 38.3C or Less than 36C, Recorded Heart Rate greater than 90 bpm, Recorded Respiratory Rate greater than 20, Respiratory: Increasing oxygen requirements, WBC count greater than 12,000 or less than 4000, Metabolic: lactate > 2 mmol/L Assessment/Plan - Problem List (1) Acute and chronic respiratory failure with hypoxia Impression: Failure was due to her asthma exacerbation. Worsened in spite of nebs, steroids, abx and went on BiPAP then intubated 04/07 pm. On 04/07 [facility] does not have any beds. Family wanted her to go there for ease of contact. I then to [facility] on-call pulmonary ICU. Dr. Cao. I have asked her to be transferred. But he feels that we can manage her here for right now especially in view of their lack of beds for transfers. They are reviewing cases on a case by case basis. He would like to see her stabilized with a nonrebreather as opposed to high flow nasal cannula. She cannot be transferred with high flow nasal cannula. Once I stabilize her, she may not need to be transferred from a respiratory perspective. His recommendations were antibiotics, steroids, long-acting bronchodilators, short acting bronchodilators, and getting her to a nonrebreather. By 04/07 pm those measures failed. I think most of the failure is due to her cycling of her maranda, anxiety. She was intubated ~23:00 on 04/07. There was a slight deterioration in her CXR 04/08 am but by 04/09 am CXR there is slight improvement. Her setting are TV 400, RR 20, Fio2 60, Peep 5, PS14, peak pressures 32, plateau pressures 21. 04/10/19 continued slight, slight improvment on CXR with a patient whose vent setting are stable. I have per Fi02 down to 40%. Stable vent pressures. Plan: Continue +Solumedrol 3 times daily, +Perforomist. +duoneb and +rocephin/aithromycin Intubation Day #3 Goal is to maintain equilibrium with her manic behavior. This way she does not crescendo into acute respiratory failure again. She is on Ativan, Haldol, and after assessment 04/09 I did not request transfer. My current plan is once her Fi02 requirement goes down, will try to wean. I will order a CT of the chest to assess interstitial changes, if any, once she is off the ventilator. Family is asking, that if she is transferred, to try [facility] was updated today. Records from [facility] reviewed. (2) Asthma exacerbation Impression: due to inhalation injury from cannibus vaping or canibus by itself. As above Qualifiers: Asthma severity: severe Asthma persistence: persistent Qualified Code(s): J45.51 - Severe persistent asthma with (acute) exacerbation (3) Community acquired pneumonia Impression: both lobes. I now have to taken to context that this young lady is possibly being affected by vaping lung injury, especially vaping cannabis. She may have lipoid pneumonitis Azithromycin day #6, Rocephin day #5 sputum culture shows only yeast. (4) Bipolar disorder Impression: I also spoke to psychiatry at [facility] center 04/07. Dr. Giron states that this patient can be detainable. She has delirium in association with her medical problems and destabilization of a bipolar disorder. She recommends either IV Haldol, or IM olanzapine. Plan: Check a daily EKG for QT interval and so far they are. Make sure her electrolytes are stable. Use Haldol 1 to 2 mg every hour up to 10 mg IV. Qualifiers: Active/Remission status: currently active Current episode severity: severe Psychotic features: with psychotic features (5) Hypertriglyceridemia due to the propofol. I have switched her to precedex. (6) Nutrition If she is not extubated by tomorrow afternoon, start tube feeds. (2) Asthma exacerbation Qualifiers: Qualified Code(s): J45.51 - Severe persistent asthma with (acute) exacerbation
--- NOTE | 2019-04-10 15:34 | PHARMACY PROGRESS NOTE ---
- Therapy Status Therapy status: Trough therapeutic (possible not quite at steady state yet, as no loading dose given; level ordered for 04/11 to ensure patient remains therapeutic) Trough goal: 15-20 Concurrent antibiotics: cefepime, azithromycin - BRIAN Risk Risk level for Acute Kidney Injury: Moderate Acute Kidney Injury risk factors: Goal trough >15, Admission to ICU - Monitoring and Recommendation Clinical response to treatment: I&O Previous 24 hours 04/08/19 04/09/19 04/10/19 23:59 23:59 23:59 Intake Total 2480.743 4146.612 1991.408 Output Total 1928 1814 1485 Balance 223.590 0005.612 506.408 Lab Results 04/10/19 04/09/19 04/08/19 04:35 04:45 05:05 BUN 20 22 H 23 H Creatinine 0.5 0.8 0.8 Estimated GFR (MDRD) 139 81 L 81 L 04/07/19 04/06/19 04/05/19 07:38 11:00 14:58 BUN 18 13 6 Creatinine 0.8 0.7 0.9 Estimated GFR (MDRD) 81 L 94 70 L Vancomycin Monitoring 04/09/19 09:28 Vancomycin Trough 19.7 Cultures 04/05/19 14:58 Blood Blood Culture - Final NO GROWTH AFTER 5 DAYS 04/09/19 13:45 Sputum Aspirate Respiratory Culture - Preliminary YEAST 04/05/19 16:20 Blood Blood Culture - Preliminary NO GROWTH AFTER 2 DAYS Monitoring plan: Daily serum creatinine Next trough due prior to maintenance dose #: 8 (to ensure patient remains at therapetic range) Next trough due (date/time): 04/11/19 @ 0930 Areas for additional monitoring: IV to PO when appropriate, Therapy de- escalation based on culture results, Acute Kidney Injury Pharmacy recommendation: Continue current regime (-Goal to de-escalate based on culture results. -recommend review of Azithromycin therapy. Course thus far 04/06: 250mg PO x1 & 500mg IV x1, 04/07: 250mg PO x1, 04/08: 500mg IV x1, 04/08: 500mg IV x1, 04/09 500mg IV.)
[2019-04-10] MEDS: hydrALAZINE INJ 20 MG/ML VIAL IVP PRN (20:05)
[2019-04-10] MEDS: QUEtiapine 100 MG TABLET NG SCH (21:48)
[2019-04-11] MEDS: SODIUM CHLORIDE FLUSH 0.9% 10 ML SYRINGE IVP SCH ×3 (01:03→15:44)
[2019-04-11] MEDS: HYDROmorphone 1 MG/ML CARPUJECT IVP PRN ×2 (01:31→03:38)
[2019-04-11] MEDS: LORazepam 2 MG/ML VIAL IVP PRN ×5 (01:36→22:25)
[2019-04-11] MEDS: hydrALAZINE INJ 20 MG/ML VIAL IVP PRN (03:08)
[2019-04-11] MEDS: DEXMEDETOMIDINE 400 MCG/100 ML 100 ML IV PRN ×2 (03:56→08:08)
[2019-04-11] MEDS: SODIUM CHLORIDE FLUSH 0.9% 10 ML SYRINGE IVP PRN ×8 (04:30→20:54)
[2019-04-11 05:20] LABS: BASOPHILS % (AUTO) 0.7 %; EOSINOPHILS % (AUTO) 0.4 %; LYMPHOCYTES % (AUTO) 18.3 %; MEAN CORPUSCULAR HEMOGLOBIN 29.4 pg (27.0-31.0); MEAN CORPUSCULAR HGB CONC 32.7 g/dL (32.0-36.0); MEAN CORPUSCULAR VOLUME 89.8 fL (81.0-99.0); MEAN PLATELET VOLUME 9.4 fL (7.9-10.8); NEUTROPHILS % (AUTO) 69.2 %; PLT - PLATELET COUNT 138 10^3/uL (130-450); RED BLOOD COUNT 4.42 10^6/uL (4.20-5.40); RED CELL DISTRIBUTION WIDTH 12.5 % (12.0-15.0); WHITE BLOOD COUNT 12.1 x10^3/uL (4.8-10.8)
[2019-04-11 05:27] LABS: CALCIUM 8.2 mg/dL (8.5-10.3); CREATININE 0.5 mg/dL (0.4-1.0); MAGNESIUM 2.2 mg/dL (1.7-2.8); PHOSPHORUS 3.4 mg/dL (2.5-4.6)
[2019-04-11 05:39] LABS: ABNORMAL LYMPHS % (MANUAL) 0 %
[2019-04-11] MEDS: methylPREDNISolone SUCCINATE 40 MG/ML VIAL IVP SCH ×2 (05:45→20:51)
[2019-04-11] MEDS: PANTOPRAZOLE 40 MG VIAL IVP SCH (06:33)
[2019-04-11 06:36] LABS: BAND NEUTROPHILS % (MANUAL) 4 %; LYMPHOCYTES # (MANUAL) 1.5 10^3/uL (1.5-3.5); LYMPHOCYTES % (MANUAL) 12 %; METAMYELOCYTES % (MANUAL) 4 %; MONOCYTES # (MANUAL) 0.6 10^3/uL (0.0-1.0); MYELOCYTES % (MANUAL) 4 %; PLATELET ESTIMATE, MANUAL NORMAL (130-450,000) (NORMAL); RBC MORPHOLOGY (MULTIPLE) NORMAL APPEARANCE (NORMAL)
[2019-04-11 06:37] LABS: DIFFERENTIAL COMMENT MANUAL DIFFERENTIAL
[2019-04-11] MEDS: IPRATROPIUM/ALBUTEROL 3 ML NEB INH SCH ×4 (07:57→19:53)
[2019-04-11] MEDS: FORMOTEROL FUMARATE NEB 20 MCG/2 ML INH SCH ×2 (07:57→19:53)
[2019-04-11] MEDS: CEFEPIME 2 GM in SODIUM CHLORIDE 0.9% MINIBAG 100 ML IV SCH ×2 (08:40→20:50)
[2019-04-11] MEDS: AZITHROMYCIN INJ 500 MG in SODIUM CHLORIDE 0.9% 250 ML IV SCH (09:17)
[2019-04-11] MEDS: HALOPERIDOL 5 MG/ML VIAL IVP PRN ×4 (09:33→23:03)
[2019-04-11 09:45] LABS: VANCOMYCIN,TROUGH 14.8 ug/mL (10.0-20.0)
[2019-04-11] MEDS: VANCOMYCIN INJ 1.75 GM in SODIUM CHLORIDE 0.9% 500 ML IV SCH ×2 (10:38→21:52)
[2019-04-11] MEDS: SERTRALINE 25 MG TABLET PO SCH (11:01)
[2019-04-11] MEDS: SENNA 8.6 MG TABLET PO SCH (11:02)
[2019-04-11] MEDS: DOCUSATE SODIUM 250 MG CAPSULE PO SCH (11:02)
--- NOTE | 2019-04-11 13:18 | PROVIDER PROGRESS NOTE ---
Subjective - Prog Note Date Prog Note Date: 04/11/19 Prog Note Time: 13:15 - Subjective Subjective: well. Respiratory had started weaning parameters for her this morning. Her FiO2 is down to 30%. Tidal volumes were good. Lung pressures were good. In the midst of this she extubated herself by pulling the ET tube. This is even with soft wrist restraints on. Since extubation she has stayed stable with her respiratory status. She is tearful, not oriented. Nonstop verbalization but not making any sense. She does consistently say "I want to get out of here". Otherwise no new events. No arrhythmias. No fever. Current Medications - Current Medications Current Medications: Active Medications Acetaminophen (Tylenol) 650 mg PO Q4HR PRN PRN Reason: Pain 1 to 4 Albuterol () 2.5 mg INH Q4HR PRN PRN Reason: Wheezing Last Admin: 04/10/19 03:39 Dose: 2.5 mg Albuterol/Ipratropium (Duoneb) 3 ml INH RTQ4H [facility] Last Admin: 04/11/19 11:11 Dose: 3 ml Benzonatate (Tessalon) 100 mg PO TID PRN PRN Reason: Cough Last Admin: 04/06/19 07:03 Dose: 100 mg Docusate Sodium (Colace 250mg Capsule) 250 - 500 mg PO DAILY [facility] Last Admin: 04/11/19 11:02 Dose: 500 mg Formoterol Fumarate (Perforomist) 20 mcg INH RTBID [facility] Last Admin: 04/11/19 07:57 Dose: 20 mcg Guaifenesin (Mucinex) 600 mg PO BID [facility] Last Admin: 04/10/19 21:47 Dose: Not Given Guaifenesin/Codeine Phosphate (Robitussin Ac) 5 ml PO Q6HR PRN PRN Reason: Cough Last Admin: 04/07/19 17:14 Dose: 5 ml Haloperidol (Haldol Inj) 2 mg IVP Q2H PRN PRN Reason: Agitation Last Admin: 04/11/19 09:33 Dose: 2 mg Heparin Sodium (Beef Lung) () 30 - 50 unit IVP PRN PRN PRN Reason: Central Line Protocol (<24 hr) Last Admin: 04/10/19 17:29 Dose: 30 unit Hydralazine HCl (Apresoline Inj) 10 mg IVP Q6HR PRN PRN Reason: NEEDED PER PROVIDER ORDERS Last Admin: 04/11/19 03:08 Dose: 10 mg Hydromorphone HCl (Dilaudid Inj Carp) 1 mg IVP Q2HR PRN PRN Reason: PAIN Last Admin: 04/11/19 03:38 Dose: 1 mg Cefepime HCl 2 gm/ Sodium (Chloride) 100 mls @ 200 mls/hr IV BID [facility] Last Infusion: 04/11/19 09:10 Dose: Infused Vancomycin HCl 1.75 gm/ Sodium (Chloride) 500 mls @ 250 mls/hr IV Q12H [facility] Last Admin: 04/11/19 10:38 Dose: 250 mls/hr Sodium Chloride (Normal Saline 0.9%) 500 mls @ 0 mls/hr IV Q24H PRN PRN Reason: TKO RATE Last Infusion: 04/11/19 02:13 Dose: Infused Lorazepam (Ativan Inj (Vial)) 2 mg IVP Q2HR PRN PRN Reason: Anxiety Last Admin: 04/11/19 03:50 Dose: 2 mg Methylprednisolone (Solu-Medrol (40mg Vial)) 40 mg IVP BID [facility] Pantoprazole Sodium (Protonix) 40 mg PO QDAC [facility] Polyethylene Glycol (Miralax) 17 gm PO DAILY [facility] Last Admin: 04/10/19 09:27 Dose: 17 gm Quetiapine Fumarate (Seroquel) 500 mg NG QPM [facility] Last Admin: 04/10/19 21:48 Dose: 500 mg Senna (Senokot) 8.6 - 17.2 mg PO DAILY [facility] Last Admin: 04/11/19 11:02 Dose: 17.2 mg Sertraline HCl (Zoloft) 50 mg PO DAILY [facility] Last Admin: 04/11/19 11:01 Dose: 50 mg Sodium Chloride (Normal Saline Flush 0.9%) 10 ml IVP 0100,0900,1700 [facility] Last Admin: 04/11/19 10:01 Dose: 10 ml Sodium Chloride (Normal Saline Flush 0.9%) 10 ml IVP PRN PRN PRN Reason: NEEDED PER PROVIDER ORDERS Last Admin: 04/11/19 09:35 Dose: 10 ml Sodium Chloride (Normal Saline Flush 0.9%) 20 ml IVP PRN PRN PRN Reason: After Blood Draw Last Admin: 04/11/19 09:34 Dose: 30 ml Albuterol 2.5 mg INH Q4H PRN 09/18/17 Albuterol Sulf [Ventolin Hfa Inhaler] 2 puffs INH Q4HR PRN 09/18/17 clonazePAM [Clonazepam] 1 mg PO TID 09/18/17 lamoTRIgine [LaMICtal] 100 mg PO BID 09/18/17 Quetiapine Fumarate 500 mg PO QPM 04/05/19 Sertraline HCl 50 mg PO DAILY 04/05/19 Objective - Vital Signs/Intake & Output Reviewed Vital Signs: Yes Vital Signs: Vital Signs x48h Temp Pulse Pulse Resp BP Pulse Ox 04/11/19 12:00 36.6 C 67 25 H 153/96 H 97 04/11/19 11:12 65 30 H 04/11/19 11:00 62 32 H 147/94 H 97 04/11/19 10:00 68 32 H 141/97 H 98 04/11/19 09:06 70 34 H 142/81 H 97 04/11/19 08:35 67 33 H 172/91 H 100 04/11/19 07:59 73 28 H 04/11/19 07:57 36.3 C L 60 28 H 130/79 97 04/11/19 07:48 64 04/11/19 07:00 55 L 25 H 144/79 H 98 04/11/19 06:00 56 L 20 139/79 H 98 Intake & Output: Intake & Output 04/08/19 04/09/19 04/10/19 04/11/19 23:59 23:59 23:59 23:59 Intake Total 2480.743 4146.612 2434.180 1015.781 Output Total 1928 1814 2365 2470 Balance 719.813 1489.612 69.180 -1454.219 - Objective General Appearance: positive: No acute distress, Mild distress (emotionally, is crying off and on, denies pain) Eyes Bilateral: positive: PERRL, EOMI Neck: positive: No JVD Respiratory: positive: Chest non-tender, No respiratory distress, Rhonchi, Other (initally copious hwang secretions once extubated, that has slowed down) Abdomen: positive: Non-tender, No organomegaly, Nml bowel sounds, No distention Skin: positive: Warm, Dry Extremities: positive: Full ROM, Pedal edema Neurologic/Psychiatric: positive: Motor nml, Disoriented to person, Disoriented to place, Disoriented to time. negative: Mood/affect nml Babinski Reflex: Right: Down, Left: Down - Lab Results Fish Bones: 04/11/19 04:25 04/11/19 04:25 Other Labs: Lab Results x24hrs 04/11/19 04/11/19 04/11/19 Range/Units 09:30 04:25 04:25 WBC 12.1 H (4.8-10.8) x10^3/uL RBC 4.42 (4.20-5.40) 10^6/uL Hgb 13.0 (12.0-16.0) g/dL Hct 39.7 (37.0-47.0) % MCV 89.8 (81.0-99.0) fL MCH 29.4 (27.0-31.0) pg MCHC 32.7 (32.0-36.0) g/dL RDW 12.5 (12.0-15.0) % Plt Count 138 (130-450) 10^3/uL MPV 9.4 (7.9-10.8) fL Neut # (Auto) Not Reportable Lymph # (Auto) Not Reportable [place] # (Auto) Not Reportable Eos # (Auto) Not Reportable Baso # (Auto) Not Reportable Absolute Nucleated RBC Not Reportable Total Counted 100 Band Neuts % (Manual) 4 (0 - 10) % Abnorm Lymph % (Manual) 0 % Metamyelocytes % 4 H ( - 0) % Myelocytes % 4 H ( - 0) % Nucleated RBC % Not Reportable Neutrophils # (Manual) 9.1 H (1.5-6.6) 10^3/uL Lymphocytes # (Manual) 1.5 (1.5-3.5) 10^3/uL Monocytes # (Manual) 0.6 (0.0-1.0) 10^3/uL Eosinophils # (Manual) 0.0 (0-0.7) 10^3/uL Basophils # (Manual) 0.0 (0-0.1) 10^3/uL Differential Comment MANUAL DIFFERENTIAL Platelet Estimate NORMAL (130-450,000) (NORMAL) RBC Morph Micro Appear NORMAL APPEARANCE (NORMAL) Sodium 136 (135-145) mmol/L Potassium 4.3 (3.5-5.0) mmol/L Chloride 103 (101-111) mmol/L Carbon Dioxide 26 (21-32) mmol/L Anion Gap 7.0 (6-13) BUN 19 (6-20) mg/dL Creatinine 0.5 (0.4-1.0) mg/dL Estimated GFR (MDRD) 139 (>89) Glucose 133 H (70-100) mg/dL Calcium 8.2 L (8.5-10.3) mg/dL Phosphorus 3.4 (2.5-4.6) mg/dL Magnesium 2.2 (1.7-2.8) mg/dL Last Dose Date UNK Last Dose Time UNK Vancomycin Trough 14.8 (10.0-20.0) ug/mL ABX Reporting Has patient been on IV antibiotics over the past 48 hours?: Yes Sepsis Event Note (H) - Evaluation Current Stage of Sepsis: Resolved Possible source of Sepsis: positive: Pulmonary - Sepsis Criteria Sepsis Criteria: Recorded Temperature greater than 38.3C or Less than 36C, Recorded Heart Rate greater than 90 bpm, Recorded Respiratory Rate greater than 20, Respiratory: Increasing oxygen requirements, WBC count greater than 12,000 or less than 4000, Metabolic: lactate > 2 mmol/L Assessment/Plan - Problem List (1) Acute and chronic respiratory failure with hypoxia Impression: resolved. due to pneumonitis, asthma, and bipolar manic episode that didn't allow her to do adequate breathing. required intubation for 3 days and today was day #4. will keep her in ICU until I know for sure she will remain stable. (2) Community acquired pneumonia Impression: bilateral infiltrates on CXR. She has had MRSA pneumonia in 08/2017, CAP pneumonia 01/2018. She intermittently smokes or vapes cannibus. Currently slowly, slowly responding to abx. I have stopped azithromycin since she has reached max dosing. Continue cefipime and vancomycin until tommorrow then transition to po if she needs it. Check CXR today. In the outpatient setting she will need a bronchoscopy to verify fungus, or other pathogens due to vaping. (3) Asthma exacerbation Impression: she will be tapered down steroids today continue perforomist, budesonide, albuterol Qualifiers: Asthma severity: severe Qualified Code(s): J45.51 - Severe persistent asthma with (acute) exacerbation (4) Bipolar disorder Impression: resume outpt meds of sertraline, seroquel and klonazepam. use haldol and ativan IV prn while here. will discuss with psych if she should be transferred to inpatient unit. Qualifiers: Active/Remission status: currently active Current bipolar episode type: manic Current episode severity: severe Psychotic features: with psychotic features Qualified Code(s): F31.2 - Bipolar disorder, current episode manic severe with psychotic features
[2019-04-11] MEDS: POLYETHYLENE GLYCOL 3350 17 GM PACKET PO SCH (15:19)
[2019-04-11] MEDS: guaiFENesin 600 MG TABLET PO SCH ×2 (15:20→21:00)
[2019-04-11] MEDS: guaiFENesin/CODEINE 5 ML UDC PO PRN (15:20)
--- NOTE | 2019-04-11 15:51 | XRAY Report ---
Reason: self extubation w rhonchi Procedure Date: 04/11/2019 Accession Number: [id number] / [id number] Procedure: XR - Chest 1 View X-Ray CPT Code: 10238 Final Report FULL RESULT: EXAM: CHEST RADIOGRAPHY EXAM DATE: 04/11/2019 02:43 PM. CLINICAL HISTORY: Self extubation w rhonchi. COMPARISON: CHEST 1 VIEW 04/10/2019 5:48 AM. TECHNIQUE: 1 view. FINDINGS: Lungs/Pleura: Unchanged foci of consolidation at the left upper lobe and right greater than left lower lobe which could reflect multifocal pneumonia. No new opacities. No pneumothorax. Mediastinum: Stable heart size and mediastinum. Other: Stable position of right central venous catheter. Endotracheal tube is discontinued. IMPRESSION: 1. Unchanged foci of pulmonary consolidation compared to prior. No new opacities. No pneumothorax. RADIA
[2019-04-11] MEDS: QUEtiapine 100 MG TABLET NG SCH (21:08)
[2019-04-12] MEDS: LORazepam 2 MG/ML VIAL IVP PRN ×6 (00:55→19:32)
[2019-04-12] MEDS: SODIUM CHLORIDE FLUSH 0.9% 10 ML SYRINGE IVP SCH ×3 (00:56→17:13)
[2019-04-12] MEDS: HALOPERIDOL 5 MG/ML VIAL IVP PRN ×8 (02:08→22:59)
[2019-04-12] MEDS: SODIUM CHLORIDE FLUSH 0.9% 10 ML SYRINGE IVP PRN (04:22)
[2019-04-12 04:45] LABS: BASOPHILS # (AUTO) 0.1 10^3/uL (0.0-0.1); BASOPHILS % (AUTO) 0.4 %; EOSINOPHILS # (AUTO) 0.1 10^3/uL (0.0-0.7); EOSINOPHILS % (AUTO) 0.7 %; HGB - HEMOGLOBIN 12.4 g/dL (12.0-16.0); LYMPHOCYTES % (AUTO) 15.7 %; MEAN CORPUSCULAR HEMOGLOBIN 29.5 pg (27.0-31.0); MEAN CORPUSCULAR HGB CONC 33.2 g/dL (32.0-36.0); MEAN CORPUSCULAR VOLUME 88.8 fL (81.0-99.0); MEAN PLATELET VOLUME 9.4 fL (7.9-10.8); MONOCYTES % (AUTO) 7.6 %; NEUTROPHILS # (AUTO) 9.2 10^3/uL (1.5-6.6); NEUTROPHILS % (AUTO) 73.1 %; PLT - PLATELET COUNT 128 10^3/uL (130-450); RED CELL DISTRIBUTION WIDTH 12.9 % (12.0-15.0); WHITE BLOOD COUNT 12.5 x10^3/uL (4.8-10.8)
[2019-04-12 04:59] LABS: CALCIUM 8.1 mg/dL (8.5-10.3); CREATININE 0.6 mg/dL (0.4-1.0); PHOSPHORUS 3.1 mg/dL (2.5-4.6)
[2019-04-12] MEDS: PANTOPRAZOLE 40 MG TABLET PO SCH (06:25)
[2019-04-12] MEDS: IPRATROPIUM/ALBUTEROL 3 ML NEB INH SCH ×4 (07:31→20:18)
[2019-04-12] MEDS: FORMOTEROL FUMARATE NEB 20 MCG/2 ML INH SCH ×2 (07:31→20:18)
[2019-04-12] MEDS: HYDROmorphone 1 MG/ML CARPUJECT IVP PRN ×4 (08:21→19:54)
[2019-04-12] MEDS: CEFEPIME 2 GM in SODIUM CHLORIDE 0.9% MINIBAG 100 ML IV SCH ×2 (09:38→21:37)
[2019-04-12] MEDS: POLYETHYLENE GLYCOL 3350 17 GM PACKET PO SCH (09:43)
[2019-04-12] MEDS: SENNA 8.6 MG TABLET PO SCH (09:43)
[2019-04-12] MEDS: guaiFENesin 600 MG TABLET PO SCH ×2 (09:43→22:29)
[2019-04-12] MEDS: DOCUSATE SODIUM 250 MG CAPSULE PO SCH (09:43)
[2019-04-12] MEDS: methylPREDNISolone SUCCINATE 40 MG/ML VIAL IVP SCH ×2 (09:48→22:29)
[2019-04-12] MEDS: SERTRALINE 25 MG TABLET PO SCH (09:48)
--- NOTE | 2019-04-12 10:48 | PROVIDER PROGRESS NOTE ---
Subjective - Prog Note Date Prog Note Date: 04/12/19 Prog Note Time: 10:53 - Subjective Subjective: Since extubation yesterday her respiratory status has been stable. She is required no more than 2 L of nasal cannula to maintain her O2 sats. She does produce occasional hwang-colored phlegm. White cell count still elevated at 12,000 but no fever. Her main problem is psychiatric. She cannot hold still, constant babbling, constant crying, wants to get out of here. I do not even think she is oriented to person or place. Current Medications - Current Medications Current Medications: Active Medications Acetaminophen (Tylenol) 650 mg PO Q4HR PRN PRN Reason: Pain 1 to 4 Last Admin: 04/11/19 21:02 Dose: 650 mg Albuterol () 2.5 mg INH Q4HR PRN PRN Reason: Wheezing Last Admin: 04/10/19 03:39 Dose: 2.5 mg Albuterol/Ipratropium (Duoneb) 3 ml INH RTQ4H [facility] Last Admin: 04/12/19 10:42 Dose: 3 ml Benzonatate (Tessalon) 100 mg PO TID PRN PRN Reason: Cough Last Admin: 04/06/19 07:03 Dose: 100 mg Docusate Sodium (Colace 250mg Capsule) 250 - 500 mg PO DAILY [facility] Last Admin: 04/12/19 09:43 Dose: Not Given Formoterol Fumarate (Perforomist) 20 mcg INH RTBID [facility] Last Admin: 04/12/19 07:31 Dose: 20 mcg Guaifenesin (Mucinex) 600 mg PO BID [facility] Last Admin: 04/12/19 09:43 Dose: Not Given Guaifenesin/Codeine Phosphate (Robitussin Ac) 5 ml PO Q6HR PRN PRN Reason: Cough Last Admin: 04/11/19 15:20 Dose: 5 ml Haloperidol (Haldol Inj) 2 mg IVP Q2H PRN PRN Reason: Agitation Last Admin: 04/12/19 09:50 Dose: 2 mg Heparin Sodium (Beef Lung) () 30 - 50 unit IVP PRN PRN PRN Reason: Central Line Protocol (<24 hr) Last Admin: 04/11/19 17:23 Dose: 90 unit Hydralazine HCl (Apresoline Inj) 10 mg IVP Q6HR PRN PRN Reason: NEEDED PER PROVIDER ORDERS Last Admin: 04/11/19 03:08 Dose: 10 mg Hydromorphone HCl (Dilaudid Inj Carp) 1 mg IVP Q2HR PRN PRN Reason: PAIN Last Admin: 04/12/19 08:21 Dose: 1 mg Cefepime HCl 2 gm/ Sodium (Chloride) 100 mls @ 200 mls/hr IV BID [facility] Last Admin: 04/12/19 09:38 Dose: 200 mls/hr Vancomycin HCl 1.75 gm/ Sodium (Chloride) 500 mls @ 250 mls/hr IV Q12H [facility] Last Infusion: 04/11/19 23:52 Dose: Infused Sodium Chloride (Normal Saline 0.9%) 500 mls @ 0 mls/hr IV Q24H PRN PRN Reason: TKO RATE Last Infusion: 04/11/19 02:13 Dose: Infused Lorazepam (Ativan Inj (Vial)) 2 mg IVP Q2HR PRN PRN Reason: Anxiety Last Admin: 04/12/19 09:50 Dose: 2 mg Methylprednisolone (Solu-Medrol (40mg Vial)) 40 mg IVP BID [facility] Last Admin: 04/12/19 09:48 Dose: 40 mg Pantoprazole Sodium (Protonix) 40 mg PO QDAC [facility] Last Admin: 04/12/19 06:25 Dose: 40 mg Polyethylene Glycol (Miralax) 17 gm PO DAILY [facility] Last Admin: 04/12/19 09:43 Dose: Not Given Quetiapine Fumarate (Seroquel) 500 mg NG QPM [facility] Last Admin: 04/11/19 21:08 Dose: 500 mg Senna (Senokot) 8.6 - 17.2 mg PO DAILY [facility] Last Admin: 04/12/19 09:43 Dose: Not Given Sertraline HCl (Zoloft) 50 mg PO DAILY [facility] Last Admin: 04/12/19 09:48 Dose: 50 mg Sodium Chloride (Normal Saline Flush 0.9%) 10 ml IVP 0100,0900,1700 [facility] Last Admin: 04/12/19 09:56 Dose: 10 ml Sodium Chloride (Normal Saline Flush 0.9%) 10 ml IVP PRN PRN PRN Reason: NEEDED PER PROVIDER ORDERS Last Admin: 04/11/19 20:54 Dose: 10 ml Sodium Chloride (Normal Saline Flush 0.9%) 20 ml IVP PRN PRN PRN Reason: After Blood Draw Last Admin: 04/12/19 04:22 Dose: 20 ml Albuterol 2.5 mg INH Q4H PRN 09/18/17 Albuterol Sulf [Ventolin Hfa Inhaler] 2 puffs INH Q4HR PRN 09/18/17 clonazePAM [Clonazepam] 1 mg PO TID 09/18/17 lamoTRIgine [LaMICtal] 100 mg PO BID 09/18/17 Quetiapine Fumarate 500 mg PO QPM 04/05/19 Sertraline HCl 50 mg PO DAILY 04/05/19 Objective - Vital Signs/Intake & Output Reviewed Vital Signs: Yes Vital Signs: Vital Signs x48h Temp Pulse Pulse Resp BP BP Pulse Ox 04/12/19 10:36 128/75 04/12/19 10:00 36.9 C 90 30 H 122/111 H 93 04/12/19 08:59 36.8 C 98 22 142/129 H 94 04/12/19 08:00 37.0 C 116 H 24 123/93 H 92 04/12/19 07:34 94 28 H 04/12/19 07:00 83 31 H 145/83 H 96 04/12/19 06:00 78 25 H 137/86 H 98 04/12/19 05:00 95 28 H 146/83 H 96 04/12/19 04:00 36.3 C L 91 25 H 145/94 H 95 04/12/19 03:00 106 H 37 H 138/78 H 92 Intake & Output: Intake & Output 04/09/19 04/10/19 04/11/19 04/12/19 23:59 23:59 23:59 23:59 Intake Total 4146.612 2434.180 3037.193 100 Output Total 1814 2365 4000 1925 Balance 2332.612 69.180 -962.807 -1825 - Objective General Appearance: positive: Alert, Moderate distress (emotionally, no respiratory distress or pain) Eyes Bilateral: positive: PERRL, EOMI ENT: positive: Pharyngeal erythema Neck: positive: No JVD. negative: Stiff neck Respiratory: positive: Chest non-tender, No respiratory distress, Rhonchi. negative: Wheezes, Rales Cardiovascular: positive: Regular rate & rhythm. negative: Gallop/S4, Friction rub Abdomen: positive: Non-tender, No organomegaly, Nml bowel sounds, No distention Skin: positive: Warm, Dry, Pallor Extremities: positive: Non-tender, Pedal edema Neurologic/Psychiatric: positive: CN's nml (2-12), Motor nml, Disoriented to person, Disoriented to place, Disoriented to time. negative: Mood/affect nml - Lab Results Fish Bones: 04/12/19 04:20 04/12/19 04:20 Other Labs: Lab Results x24hrs 04/12/19 04/12/19 Range/Units 04:20 04:20 WBC 12.5 H (4.8-10.8) x10^3/uL RBC 4.20 (4.20-5.40) 10^6/uL Hgb 12.4 (12.0-16.0) g/dL Hct 37.3 (37.0-47.0) % MCV 88.8 (81.0-99.0) fL MCH 29.5 (27.0-31.0) pg MCHC 33.2 (32.0-36.0) g/dL RDW 12.9 (12.0-15.0) % Plt Count 128 L (130-450) 10^3/uL MPV 9.4 (7.9-10.8) fL Neut # (Auto) 9.2 H (1.5-6.6) 10^3/uL Lymph # (Auto) 2.0 (1.5-3.5) 10^3/uL [place] # (Auto) 1.0 (0.0-1.0) 10^3/uL Eos # (Auto) 0.1 (0.0-0.7) 10^3/uL Baso # (Auto) 0.1 (0.0-0.1) 10^3/uL Absolute Nucleated RBC 0.00 x10^3/uL Nucleated RBC % 0.0 /100WBC Sodium 137 (135-145) mmol/L Potassium 3.6 (3.5-5.0) mmol/L Chloride 104 (101-111) mmol/L Carbon Dioxide 27 (21-32) mmol/L Anion Gap 6.0 (6-13) BUN 16 (6-20) mg/dL Creatinine 0.6 (0.4-1.0) mg/dL Estimated GFR (MDRD) 112 (>89) Glucose 104 H (70-100) mg/dL Calcium 8.1 L (8.5-10.3) mg/dL Phosphorus 3.1 (2.5-4.6) mg/dL Magnesium 2.0 (1.7-2.8) mg/dL ABX Reporting Has patient been on IV antibiotics over the past 48 hours?: Yes Sepsis Event Note (H) - Evaluation Current Stage of Sepsis: Resolved Possible source of Sepsis: positive: Pulmonary - Sepsis Criteria Sepsis Criteria: Recorded Temperature greater than 38.3C or Less than 36C, Recorded Heart Rate greater than 90 bpm, Recorded Respiratory Rate greater than 20, Respiratory: Increasing oxygen requirements, WBC count greater than 12,000 or less than 4000, Metabolic: lactate > 2 mmol/L Assessment/Plan - Problem List (1) Community acquired pneumonia Impression: Review of her old records show her to have MRSA pneumonia with sepsis, intubation and a very long hospital stay in August 2017. She was initially seen here and then transferred to [facility]. She then had an ectopic December 2017 and a subsequent admission for pneumonia and acute respiratory failure without intubation January [address] [facility] as well. She now returns to us with a history of vaping mariano, as well as vaping cannabis as well as inhaling cannabis the regular way. That has been going on for a year and 1/2 to 2 years. She was admitted as an asthma exacerbation that was not able to be controlled. She went into acute respiratory failure and had to be intubated. Chest x-ray show worsening infiltrates over the last few days. She then started improving 2 days ago. She extubated herself yesterday on April 11. Chest x-ray shows stable consolidation left upper lobe and right greater than left lower lobe. Cultures have grown only yeast in her sputum. Blood cultures have been negative. White cell count has steadily improved. She was admitted at 16.8 thousand. Peaked at 28.1 thousand the next day. With treatment she is come down and she is 12.5 thousand today. The highest FiO2 she needed was 50%. Since extubation she is required 2 L to maintain her O2 sats at 93%. Plan: She is completed azithromycin therapy and that was stopped yesterday She is on cefepime and vancomycin. I hesitate to stop those today. I have plan to do so but with infiltrates not really resolved enough, I will keep her on antibiotics. Check CBC daily. She will need outpatient pulmonary consult. She really does need a bronchoscopy to figure out if she has vaping related pneumonitis. Does she have a fungus infection because she vapes cannabis? Once stable, my plan is to transfer her for psychiatric care. (2) Asthma exacerbation Impression: she will be tapered down steroids starting 04/11 continue perforomist, budesonide, albuterol Qualifiers: Asthma severity: severe Qualified Code(s): J45.51 - Severe persistent asthma with (acute) exacerbation (3) Bipolar disorder Impression: resume outpt meds of sertraline, seroquel and klonazepam. use haldol and ativan IV prn while here. will discuss with psych if she should be transferred to inpatient unit. But first she needs to recover from pneumonia, then get MHE, then psych. She is agitated. Cannot hold still. Needs restraints. Nonstop verbalization that is nonsensical. Qualifiers: Active/Remission status: currently active Current bipolar episode type: manic Current episode severity: severe Psychotic features: with psychotic features Qualified Code(s): F31.2 - Bipolar disorder, current episode manic severe with psychotic features (3) Asthma exacerbation Qualifiers: Qualified Code(s): J45.51 - Severe persistent asthma with (acute) exacerbation
[2019-04-12] MEDS: VANCOMYCIN INJ 1.75 GM in SODIUM CHLORIDE 0.9% 500 ML IV SCH ×2 (11:20→22:10)
[2019-04-12] MEDS: QUEtiapine 100 MG TABLET NG SCH (22:28)
[2019-04-13] MEDS: HALOPERIDOL 5 MG/ML VIAL IVP PRN ×4 (01:02→14:47)
[2019-04-13] MEDS: HYDROmorphone 1 MG/ML CARPUJECT IVP PRN ×2 (02:06→19:35)
[2019-04-13] MEDS: LORazepam 2 MG/ML VIAL IVP PRN ×2 (02:16→13:02)
[2019-04-13] MEDS: SODIUM CHLORIDE FLUSH 0.9% 10 ML SYRINGE IVP PRN ×3 (04:22→19:35)
[2019-04-13 04:42] LABS: BASOPHILS % (AUTO) 0.2 %; EOSINOPHILS # (AUTO) 0.2 10^3/uL (0.0-0.7); EOSINOPHILS % (AUTO) 1.6 %; HGB - HEMOGLOBIN 13.3 g/dL (12.0-16.0); LYMPHOCYTES # (AUTO) 1.2 10^3/uL (1.5-3.5); LYMPHOCYTES % (AUTO) 12.9 %; MEAN CORPUSCULAR HEMOGLOBIN 30.4 pg (27.0-31.0); MEAN CORPUSCULAR HGB CONC 34.1 g/dL (32.0-36.0); MEAN CORPUSCULAR VOLUME 89.2 fL (81.0-99.0); MEAN PLATELET VOLUME 9.6 fL (7.9-10.8); MONOCYTES # (AUTO) 0.6 10^3/uL (0.0-1.0); MONOCYTES % (AUTO) 6.2 %; NEUTROPHILS # (AUTO) 7.3 10^3/uL (1.5-6.6); NEUTROPHILS % (AUTO) 76.8 %; PLT - PLATELET COUNT 133 10^3/uL (130-450); RED BLOOD COUNT 4.37 10^6/uL (4.20-5.40); RED CELL DISTRIBUTION WIDTH 12.7 % (12.0-15.0); WHITE BLOOD COUNT 9.6 x10^3/uL (4.8-10.8)
[2019-04-13 05:00] LABS: CALCIUM 8.5 mg/dL (8.5-10.3); CREATININE 0.5 mg/dL (0.4-1.0)
[2019-04-13] MEDS: SODIUM CHLORIDE FLUSH 0.9% 10 ML SYRINGE IVP SCH ×3 (06:44→18:20)
[2019-04-13] MEDS: PANTOPRAZOLE 40 MG TABLET PO SCH (07:05)
[2019-04-13] MEDS: FORMOTEROL FUMARATE NEB 20 MCG/2 ML INH SCH ×2 (08:16→21:54)
[2019-04-13] MEDS: IPRATROPIUM/ALBUTEROL 3 ML NEB INH SCH ×4 (08:16→21:55)
[2019-04-13] MEDS: methylPREDNISolone SUCCINATE 40 MG/ML VIAL IVP SCH (08:32)
[2019-04-13] MEDS: CEFEPIME 2 GM in SODIUM CHLORIDE 0.9% MINIBAG 100 ML IV SCH ×2 (08:32→20:21)
[2019-04-13] MEDS: SERTRALINE 25 MG TABLET PO SCH (08:33)
[2019-04-13] MEDS: POLYETHYLENE GLYCOL 3350 17 GM PACKET PO SCH (08:34)
[2019-04-13] MEDS: guaiFENesin 600 MG TABLET PO SCH ×2 (08:34→20:22)
[2019-04-13] MEDS: SENNA 8.6 MG TABLET PO SCH (08:37)
[2019-04-13] MEDS: DOCUSATE SODIUM 250 MG CAPSULE PO SCH (08:37)
[2019-04-13] MEDS: VANCOMYCIN INJ 1.75 GM in SODIUM CHLORIDE 0.9% 500 ML IV SCH ×2 (10:12→21:49)
--- NOTE | 2019-04-13 12:02 | PROVIDER PROGRESS NOTE ---
Objective - Vital Signs/Intake & Output Vital Signs: Vital Signs x48h Temp Pulse Pulse Resp BP Pulse Ox 04/13/19 11:00 102 H 20 130/88 H 93 04/13/19 10:00 95 24 129/81 H 92 04/13/19 09:00 102 H 24 143/80 H 95 04/13/19 08:17 99 18 04/13/19 08:00 80 20 139/81 H 100 04/13/19 07:32 36.8 C 04/13/19 07:00 37.0 C 78 18 141/94 H 94 04/13/19 06:00 84 17 127/90 H 91 L 04/13/19 05:00 92 16 93/65 91 L Intake & Output: Intake & Output 04/10/19 04/11/19 04/12/19 04/13/19 23:59 23:59 23:59 23:59 Intake Total 2434.180 3037.193 1050 816.667 Output Total 2365 4000 3165 1930 Balance 69.180 -962.807 -2115 -1113.333 - Lab Results Fish Bones: 04/13/19 04:22 04/13/19 04:22 Other Labs: Lab Results x24hrs 04/13/19 04/13/19 04/13/19 Range/Units 04:22 04:22 04:22 WBC 9.6 (4.8-10.8) x10^3/uL RBC 4.37 (4.20-5.40) 10^6/uL Hgb 13.3 (12.0-16.0) g/dL Hct 39.0 (37.0-47.0) % MCV 89.2 (81.0-99.0) fL MCH 30.4 (27.0-31.0) pg MCHC 34.1 (32.0-36.0) g/dL RDW 12.7 (12.0-15.0) % Plt Count 133 (130-450) 10^3/uL MPV 9.6 (7.9-10.8) fL Neut # (Auto) 7.3 H (1.5-6.6) 10^3/uL Lymph # (Auto) 1.2 L (1.5-3.5) 10^3/uL [place] # (Auto) 0.6 (0.0-1.0) 10^3/uL Eos # (Auto) 0.2 (0.0-0.7) 10^3/uL Baso # (Auto) 0.0 (0.0-0.1) 10^3/uL Absolute Nucleated RBC 0.00 x10^3/uL Nucleated RBC % 0.0 /100WBC Sodium 138 (135-145) mmol/L Potassium 4.1 (3.5-5.0) mmol/L Chloride 105 (101-111) mmol/L Carbon Dioxide 26 (21-32) mmol/L Anion Gap 7.0 (6-13) BUN 13 (6-20) mg/dL Creatinine 0.5 (0.4-1.0) mg/dL Estimated GFR (MDRD) 139 (>89) Glucose 130 H (70-100) mg/dL Calcium 8.5 (8.5-10.3) mg/dL Albumin 2.9 L (3.2-5.5) g/dL Sepsis Event Note (H) - Evaluation Current Stage of Sepsis: Resolved Possible source of Sepsis: positive: Pulmonary - Sepsis Criteria Sepsis Criteria: Recorded Temperature greater than 38.3C or Less than 36C, Rec orded Heart Rate greater than 90 bpm, Recorded Respiratory Rate greater than 20, Respiratory: Increasing oxygen requirements, WBC count greater than 12,000 or less than 4000, Metabolic: lactate > 2 mmol/L Assessment/Plan - Problem List (1) Community acquired pneumonia Impression: Review of her old records show her to have MRSA pneumonia with sepsis, intubation and a very long hospital stay in August 2017. She was initially seen here and then transferred to [facility]. She then had an ectopic December 2017 and a subsequent admission for pneumonia and acute respiratory failure without intubation January 2018 at [facility] as well. She now returns to us with a history of vaping mariano, as well as vaping cannabis as well as inhaling cannabis the regular way. That has been going on for a year and 1/2 to 2 years. She was admitted as an asthma exacerbation that was not able to be controlled. She went into acute respiratory failure and had to be intubated. Chest x-ray showed worsening infiltrates over few days. She then started improving with less Fi02 need, breathing at 18 with rate set at 16, less whe ezing. Pressures remained in high 20's. She extubated herself on April 11. 04/12 Chest x-ray shows stable consolidation left upper lobe and right greater than left lower lobe. Cultures have grown only yeast in her sputum. Blood cultures have been negative. White cell count has steadily improved. She was admitted at 16.8 thousand. Peaked at 28.1 thousand the next day. With treatment she is come down and she is 04/12 12.5>9.6 today The highest FiO2 she needed was 50%. Since extubation she is required 2 L to maintain her O2 sats at 93% on 04/12 and today she is 93% on room air. Plan: She is completed azithromycin therapy and that was stopped 04/11 She is on cefepime and vancomycin (chosen she had hx of MRSA + 2 previous hospitalizations for pneumonia in 7 months). I hesitated stopping those 04/12. I had planned to do so but with infiltrates not really resolved enough, I will keep her on antibiotics. Today is day #6, will stop at Day #7 tomorrow. Then she will have completed 7 days of empiric therapy for pneumonitis. Check CBC daily. She will need outpatient pulmonary consult. She really does need a bronchoscopy to figure out if she has vaping related pneumonitis. Does she have a fungus infection because she vapes cannabis? Once stable, my plan is to transfer her for psychiatric care. Hopefully that can occur tomorrow. Family would like inpatient psych at [facility] first. (2) Asthma exacerbation Impression: she will be tapered down steroids starting 04/11. Will stop IV today, give po pred tonight and tomorrow continue perforomist, budesonide, albuterol Qualifiers: Asthma severity: severe Qualified Code(s): J45.51 - Severe persistent asthma with (acute) exacerbation (3) Bipolar disorder Impression: resume outpt meds of sertraline, seroquel and klonazepam. use haldol and ativan IV prn while here. she should be transferred to inpatient unit has not been stable the entire time she was here. Mom gives a story of stable status for a while, years, but she stopped and resumed meds erratically in the two months before admission. Now that she is recovered from pneumonia and acute asthma, get MHE, then psych. She is agitated. Cannot hold still. Needs restraints. Nonstop verbalization that is nonsensical. Qualifiers: Active/Remission status: currently active Current bipolar episode type: manic Current episode severity: severe Psychotic features: with psychotic features Qualified Code(s): F31.2 - Bipolar disorder, current episode manic severe with psychotic features (3) Asthma exacerbation Qualifiers: Qualified Code(s): J45.51 - Severe persistent asthma with (acute) exacerbation
--- NOTE | 2019-04-13 13:06 | PROVIDER PROGRESS NOTE ---
Subjective - Prog Note Date Prog Note Date: 04/13/19 Prog Note Time: 13:04 - Subjective Subjective: This is a second note since I signed off too early on first one. It wasn't complete. still needs close 1:1 supervision bc of her lack of understanding and incoherence. If we sedate her too much she can't work with PT. If we don't sedate her she is a risk. Current Medications - Current Medications Current Medications: Active Medications Acetaminophen (Tylenol) 650 mg PO Q4HR PRN PRN Reason: Pain 1 to 4 Last Admin: 04/11/19 21:02 Dose: 650 mg Albuterol () 2.5 mg INH Q4HR PRN PRN Reason: Wheezing Last Admin: 04/10/19 03:39 Dose: 2.5 mg Albuterol/Ipratropium (Duoneb) 3 ml INH RTQ4H [facility] Last Admin: 04/13/19 11:55 Dose: Not Given Benzonatate (Tessalon) 100 mg PO TID PRN PRN Reason: Cough Last Admin: 04/06/19 07:03 Dose: 100 mg Docusate Sodium (Colace 250mg Capsule) 250 - 500 mg PO DAILY [facility] Last Admin: 04/13/19 08:37 Dose: Not Given Formoterol Fumarate (Perforomist) 20 mcg INH RTBID [facility] Last Admin: 04/13/19 08:16 Dose: 20 mcg Guaifenesin (Mucinex) 600 mg PO BID [facility] Last Admin: 04/13/19 08:34 Dose: 600 mg Guaifenesin/Codeine Phosphate (Robitussin Ac) 5 ml PO Q6HR PRN PRN Reason: Cough Last Admin: 04/11/19 15:20 Dose: 5 ml Haloperidol (Haldol Inj) 4 mg IVP Q2H PRN PRN Reason: Agitation Last Admin: 04/13/19 08:47 Dose: 4 mg Heparin Sodium (Beef Lung) () 30 - 50 unit IVP PRN PRN PRN Reason: Central Line Protocol (<24 hr) Last Admin: 04/12/19 16:45 Dose: 100 unit Hydralazine HCl (Apresoline Inj) 10 mg IVP Q6HR PRN PRN Reason: NEEDED PER PROVIDER ORDERS Last Admin: 04/11/19 03:08 Dose: 10 mg Hydromorphone HCl (Dilaudid Inj Carp) 1 mg IVP Q2HR PRN PRN Reason: PAIN Last Admin: 04/13/19 02:06 Dose: 1 mg Cefepime HCl 2 gm/ Sodium (Chloride) 100 mls @ 200 mls/hr IV BID [facility] Last Infusion: 04/13/19 09:30 Dose: 0 mls/hr Vancomycin HCl 1.75 gm/ Sodium (Chloride) 500 mls @ 250 mls/hr IV Q12H [facility] Last Infusion: 04/13/19 13:03 Dose: Infused Sodium Chloride (Normal Saline 0.9%) 500 mls @ 0 mls/hr IV Q24H PRN PRN Reason: TKO RATE Last Infusion: 04/11/19 02:13 Dose: Infused Lorazepam (Ativan Inj (Vial)) 2 mg IVP Q2HR PRN PRN Reason: Anxiety Last Admin: 04/13/19 13:02 Dose: 2 mg Pantoprazole Sodium (Protonix) 40 mg PO QDAC [facility] Last Admin: 04/13/19 07:05 Dose: 40 mg Polyethylene Glycol (Miralax) 17 gm PO DAILY [facility] Last Admin: 04/13/19 08:34 Dose: 17 gm Prednisone (Deltasone) 20 mg PO ONCE ONE Stop: 04/13/19 18:01 Prednisone (Deltasone) 10 mg PO DAILYWM [facility] Quetiapine Fumarate (Seroquel) 500 mg NG QPM [facility] Last Admin: 04/12/19 22:28 Dose: 500 mg Senna (Senokot) 8.6 - 17.2 mg PO DAILY [facility] Last Admin: 04/13/19 08:37 Dose: Not Given Sertraline HCl (Zoloft) 50 mg PO DAILY [facility] Last Admin: 04/13/19 08:33 Dose: 50 mg Sodium Chloride (Normal Saline Flush 0.9%) 10 ml IVP 0100,0900,1700 [facility] Last Admin: 04/13/19 08:32 Dose: 10 ml Sodium Chloride (Normal Saline Flush 0.9%) 10 ml IVP PRN PRN PRN Reason: NEEDED PER PROVIDER ORDERS Last Admin: 04/11/19 20:54 Dose: 10 ml Sodium Chloride (Normal Saline Flush 0.9%) 20 ml IVP PRN PRN PRN Reason: After Blood Draw Last Admin: 04/13/19 04:22 Dose: 20 ml Albuterol 2.5 mg INH Q4H PRN 09/18/17 Albuterol Sulf [Ventolin Hfa Inhaler] 2 puffs INH Q4HR PRN 09/18/17 clonazePAM [Clonazepam] 1 mg PO TID 09/18/17 lamoTRIgine [LaMICtal] 100 mg PO BID 09/18/17 Quetiapine Fumarate 500 mg PO QPM 04/05/19 Sertraline HCl 50 mg PO DAILY 04/05/19 Objective - Vital Signs/Intake & Output Reviewed Vital Signs: Yes Vital Signs: Vital Signs x48h Temp Pulse Pulse Resp BP Pulse Ox 04/13/19 12:00 87 24 136/73 H 95 04/13/19 11:00 102 H 20 130/88 H 93 04/13/19 10:00 95 24 129/81 H 92 04/13/19 09:00 102 H 24 143/80 H 95 04/13/19 08:17 99 18 04/13/19 08:00 80 20 139/81 H 100 04/13/19 07:32 36.8 C 04/13/19 07:00 37.0 C 78 18 141/94 H 94 04/13/19 06:00 84 17 127/90 H 91 L Intake & Output: Intake & Output 04/10/19 04/11/19 04/12/19 04/13/19 23:59 23:59 23:59 23:59 Intake Total 2434.180 3037.193 1050 1316.667 Output Total 2365 4000 3165 2040 Balance 69.180 -962.807 -2115 -723.333 - Objective General Appearance: positive: No acute distress, Alert, Other (babbling, not as much crying) Eyes Bilateral: positive: PERRL ENT: positive: Pharynx nml Neck: positive: No JVD Respiratory: positive: Chest non-tender, Wheezes (faint and scattered but less and less as days go on). negative: Rales, Rhonchi Cardiovascular: positive: Regular rate & rhythm. negative: Gallop/S4, Friction rub Abdomen: positive: Non-tender, No organomegaly, Nml bowel sounds, No distention Skin: positive: Warm, Dry Extremities: positive: Non-tender, Pedal edema Neurologic/Psychiatric: positive: CN's nml (2-12), Motor nml, Disoriented to person, Disoriented to place, Disoriented to time. negative: Mood/affect nml - Lab Results Fish Bones: 04/13/19 04:22 04/13/19 04:22 Other Labs: Lab Results x24hrs 04/13/19 04/13/19 04/13/19 Range/Units 04:22 04:22 04:22 WBC 9.6 (4.8-10.8) x10^3/uL RBC 4.37 (4.20-5.40) 10^6/uL Hgb 13.3 (12.0-16.0) g/dL Hct 39.0 (37.0-47.0) % MCV 89.2 (81.0-99.0) fL MCH 30.4 (27.0-31.0) pg MCHC 34.1 (32.0-36.0) g/dL RDW 12.7 (12.0-15.0) % Plt Count 133 (130-450) 10^3/uL MPV 9.6 (7.9-10.8) fL Neut # (Auto) 7.3 H (1.5-6.6) 10^3/uL Lymph # (Auto) 1.2 L (1.5-3.5) 10^3/uL [place] # (Auto) 0.6 (0.0-1.0) 10^3/uL Eos # (Auto) 0.2 (0.0-0.7) 10^3/uL Baso # (Auto) 0.0 (0.0-0.1) 10^3/uL Absolute Nucleated RBC 0.00 x10^3/uL Nucleated RBC % 0.0 /100WBC Sodium 138 (135-145) mmol/L Potassium 4.1 (3.5-5.0) mmol/L Chloride 105 (101-111) mmol/L Carbon Dioxide 26 (21-32) mmol/L Anion Gap 7.0 (6-13) BUN 13 (6-20) mg/dL Creatinine 0.5 (0.4-1.0) mg/dL Estimated GFR (MDRD) 139 (>89) Glucose 130 H (70-100) mg/dL Calcium 8.5 (8.5-10.3) mg/dL Albumin 2.9 L (3.2-5.5) g/dL ABX Reporting Has patient been on IV antibiotics over the past 48 hours?: Yes Sepsis Event Note (H) - Evaluation Current Stage of Sepsis: Resolved Possible source of Sepsis: positive: Pulmonary - Sepsis Criteria Sepsis Criteria: Recorded Temperature greater than 38.3C or Less than 36C, Recorded Heart Rate greater than 90 bpm, Recorded Respiratory Rate greater than 20, Respiratory: Increasing oxygen requirements, WBC count greater than 12,000 or less than 4000, Metabolic: lactate > 2 mmol/L Assessment/Plan - Problem List (1) Community acquired pneumonia Impression: Review of her old records show her to have MRSA pneumonia with sepsis, intubati on and a very long hospital stay in August 2017. She was initially seen here and then transferred to [facility]. She then had an ectopic December 2017 and a subsequent admission for pneumonia and acute respiratory failure without intubation January 2018 at [facility] as well. She now returns to us with a history of vaping mariano, as well as vaping cannabis as well as inhaling cannabis the regular way. That has been going on for a year and 1/2 to 2 years. She was admitted as an asthma exacerbation that was not able to be controlled. She went into acute respiratory failure and had to be intubated. Chest x-ray showed worsening infiltrates over few days. She then started improving with less Fi02 need, breathing at 18 with rate set at 16, less wheezing. Pressures remained in high 20's. She extubated herself on April 11. 04/12 Chest x-ray shows stable consolidation left upper lobe and right greater than left lower lobe. Cultures have grown only yeast in her sputum. Blood cultures have been negative. White cell count has steadily improved. She was admitted at 16.8 thousand. Peaked at 28.1 thousand the next day. With treatment she is come down and she is 04/12 12.5>9.6 today The highest FiO2 she needed was 50%. Since extubation she is required 2 L to maintain her O2 sats at 93% on 04/12 and today she is 93% on room air. Plan: She is completed azithromycin therapy and that was stopped 04/11 She is on cefepime and vancomycin (chosen bc she had hx of MRSA + 2 previous hospitalizations for pneumonia in 7 months). I hesitated stopping those 04/12. I had planned to do so but with infiltrates not really resolved enough, I will keep her on antibiotics. Today is day #6, will stop at Day #7 tomorrow. Then she will have completed 7 days of empiric therapy for pneumonitis. Check CBC daily. She will need outpatient pulmonary consult. She really does need a bronchoscopy to figure out if she has vaping related pneumonitis. Does she have a fungus infection because she vapes cannabis? Once stable, my plan is to transfer her for psychiatric care. Hopefully that can occur tomorrow. Family would like inpatient psych at [facility]. (2) Asthma exacerbation Impression: she will be tapered down steroids starting 04/11. Will stop IV today, give po pred tonight and tomorrow continue perforomist, budesonide, albuterol Qualifiers: Asthma severity: severe Qualified Code(s): J45.51 - Severe persistent asthma with (acute) exacerbation (3) Bipolar disorder Impression: resume outpt meds of sertraline, seroquel and klonazepam. use haldol and ativan IV prn while here. she should be transferred to inpatient unit bc has not been stable the entire time she was here. Mom gives a story of stable status for a while, years, but she stopped and resumed meds erratically in the two months before admission. Now that she is recovered from pneumonia and acute asthma, get [facility], then psych. She is agitated. Cannot hold still. Needs restraints. Nonstop verbalization that is nonsensical. Qualifiers: Active/Remission status: currently active Current bipolar episode type: ma yeimy Current episode severity: severe Psychotic features: with psychotic features Qualified Code(s): F31.2 - Bipolar disorder, current episode manic severe with psychotic features
[2019-04-13] MEDS ORDERED: SODIUM CHLORIDE 0.9% 500 ML ONE (15:01)
--- NOTE | 2019-04-13 15:37 | PHARMACY PROGRESS NOTE ---
- Therapy Status Vancomycin regimen day #: 7 Therapy status: Trough therapeutic Basis for treatment: Empirical Trough goal: 15-20 - BRIAN Risk Risk level for Acute Kidney Injury: Moderate Acute Kidney Injury risk factors: Goal trough >15, Admission to ICU - Monitoring and Recommendation Clinical response to treatment: I&O Previous 24 hours 04/11/19 04/12/19 04/13/19 23:59 23:59 23:59 Intake Total 3037.193 1050 1486.667 Output Total 4000 3165 2820 Balance -962.807 -2115 -1333.333 Lab Results 04/13/19 04/12/19 04/11/19 04:22 04:20 04:25 BUN 13 16 19 Creatinine 0.5 0.6 0.5 Estimated GFR (MDRD) 139 112 139 04/10/19 04/09/19 04/08/19 04:35 04:45 05:05 BUN 20 22 H 23 H Creatinine 0.5 0.8 0.8 Estimated GFR (MDRD) 139 81 L 81 L 04/07/19 04/06/19 04/05/19 07:38 11:00 14:58 BUN 18 13 6 Creatinine 0.8 0.7 0.9 Estimated GFR (MDRD) 81 L 94 70 L Vancomycin Monitoring 04/11/19 04/09/19 09:30 09:28 Vancomycin Trough 14.8 19.7 Cultures 04/09/19 13:45 Sputum Aspirate Respiratory Culture - Final YEAST 04/05/19 16:20 Blood Blood Culture - Final NO GROWTH AFTER 5 DAYS 04/05/19 14:58 Blood Blood Culture - Final NO GROWTH AFTER 5 DAYS Monitoring plan: Daily serum creatinine Areas for additional monitoring: IV to PO when appropriate, Therapy de-esca lation based on culture results, Acute Kidney Injury Pharmacy recommendation: Continue current regime (Goal to discontinue emperic coverage (per provider's prog note, given history of MRSA and past PNA hospitalizations, - plan to continue one more day and d/c tomorrow to complete emperic therapy) . Dose change not needed at this time, patient clinically appears to be improving (i.e WBC/temperature), no MRSA + culture noted thus far. Recommend discontinuing as planned)
[2019-04-13] MEDS ORDERED: predniSONE 20 MG TABLET PO ONE (18:00)
[2019-04-13] MEDS: SODIUM CHLORIDE 0.9% 500 ML IV PRN (20:22)
[2019-04-13] MEDS: QUEtiapine 100 MG TABLET NG SCH (20:22)
[2019-04-14] MEDS: SODIUM CHLORIDE FLUSH 0.9% 10 ML SYRINGE IVP SCH ×3 (03:28→15:58)
[2019-04-14] MEDS: SODIUM CHLORIDE FLUSH 0.9% 10 ML SYRINGE IVP PRN ×5 (04:44→15:58)
[2019-04-14 05:31] LABS: BASOPHILS % (AUTO) 0.3 %; EOSINOPHILS # (AUTO) 0.2 10^3/uL (0.0-0.7); EOSINOPHILS % (AUTO) 2.4 %; HGB - HEMOGLOBIN 12.4 g/dL (12.0-16.0); LYMPHOCYTES # (AUTO) 2.3 10^3/uL (1.5-3.5); LYMPHOCYTES % (AUTO) 25.1 %; MEAN CORPUSCULAR HEMOGLOBIN 30.4 pg (27.0-31.0); MEAN CORPUSCULAR HGB CONC 34.2 g/dL (32.0-36.0); MONOCYTES % (AUTO) 11.3 %; NEUTROPHILS # (AUTO) 5.3 10^3/uL (1.5-6.6); NEUTROPHILS % (AUTO) 58.2 %; PLT - PLATELET COUNT 144 10^3/uL (130-450); RED BLOOD COUNT 4.08 10^6/uL (4.20-5.40); RED CELL DISTRIBUTION WIDTH 12.9 % (12.0-15.0); WHITE BLOOD COUNT 9.1 x10^3/uL (4.8-10.8)
[2019-04-14 05:41] LABS: CALCIUM 8.6 mg/dL (8.5-10.3); CREATININE 0.5 mg/dL (0.4-1.0)
[2019-04-14] MEDS ORDERED: POTASSIUM CHLORIDE 20 MEQ TABLET PO ONE (06:28)
[2019-04-14] MEDS: PANTOPRAZOLE 40 MG TABLET PO SCH (06:41)
[2019-04-14] MEDS: FORMOTEROL FUMARATE NEB 20 MCG/2 ML INH SCH ×2 (08:01→23:46)
[2019-04-14] MEDS: IPRATROPIUM/ALBUTEROL 3 ML NEB INH SCH ×4 (08:01→23:46)
[2019-04-14] MEDS: predniSONE 10 MG TABLET PO SCH (08:16)
[2019-04-14] MEDS: SENNA 8.6 MG TABLET PO SCH (08:16)
[2019-04-14] MEDS: SERTRALINE 25 MG TABLET PO SCH (08:16)
[2019-04-14] MEDS: DOCUSATE SODIUM 250 MG CAPSULE PO SCH (08:16)
[2019-04-14] MEDS: POLYETHYLENE GLYCOL 3350 17 GM PACKET PO SCH (08:16)
[2019-04-14] MEDS: CEFEPIME 2 GM in SODIUM CHLORIDE 0.9% MINIBAG 100 ML IV SCH ×2 (08:17→20:37)
[2019-04-14] MEDS: guaiFENesin 600 MG TABLET PO SCH (08:17)
[2019-04-14] MEDS: LORazepam 2 MG/ML VIAL IVP PRN (08:18)
[2019-04-14] MEDS: VANCOMYCIN INJ 1.75 GM in SODIUM CHLORIDE 0.9% 500 ML IV SCH ×2 (11:34→21:39)
[2019-04-14] MEDS: HALOPERIDOL 5 MG/ML VIAL IVP PRN (13:25)
--- NOTE | 2019-04-14 16:08 | PHARMACY PROGRESS NOTE ---
- Therapy Status Therapy status: Trough therapeutic Basis for treatment: Empirical Trough goal: 15-20 - BRIAN Risk Risk level for Acute Kidney Injury: Moderate Acute Kidney Injury risk factors: Goal trough >15, Admission to ICU - Monitoring and Recommendation Clinical response to treatment: I&O Previous 24 hours 04/12/19 04/13/19 04/14/19 23:59 23:59 23:59 Intake Total 1050 2208.000 1259.667 Output Total 3168 3605 Balance -2115 -4460.865 0949.667 Lab Results 04/14/19 04/13/19 04/12/19 04:45 04:22 04:20 BUN 13 13 16 Creatinine 0.5 0.5 0.6 Estimated GFR (MDRD) 139 139 112 04/11/19 04/10/19 04/09/19 04:25 04:35 04:45 BUN 19 20 22 H Creatinine 0.5 0.5 0.8 Estimated GFR (MDRD) 139 139 81 L 04/08/19 04/07/19 04/06/19 05:05 07:38 11:00 BUN 23 H 18 13 Creatinine 0.8 0.8 0.7 Estimated GFR (MDRD) 81 L 81 L 94 04/05/19 14:58 BUN 6 Creatinine 0.9 Estimated GFR (MDRD) 70 L Vancomycin Monitoring 04/11/19 04/09/19 09:30 09:28 Vancomycin Trough 14.8 19.7 Cultures 04/09/19 13:45 Sputum Aspirate Respiratory Culture - Final YEAST 04/05/19 16:20 Blood Blood Culture - Final NO GROWTH AFTER 5 DAYS 04/05/19 14:58 Blood Blood Culture - Final NO GROWTH AFTER 5 DAYS Monitoring plan: Daily serum creatinine Areas for additional monitoring: IV to PO when appropriate, Therapy de- escalation based on culture results, Acute Kidney Injury Pharmacy recommendation: Discontinue therapy (Plan per provider's note to d/c today; recommending to discontinue therapy as planned)
--- NOTE | 2019-04-14 17:34 | PROVIDER PROGRESS NOTE ---
Assessment/Plan - Problem List (1) Community acquired pneumonia Assessment/Plan: On final day of antibx. (2) Bipolar disorder Assessment/Plan: The mother at bedside gave me an update: she tried to wean herself off the Klonepin 6 weeks ago and was using smoking marijuana in its place. The PCP was not aware of this. The patient was previously this confused when she was in [place] several years ago, and was apparently off her meds then too, but the mother did not witness that episode. The patient has no established Psych provider. The mother did notice that the patient is still intermittently confused or delusional (today she told us that she thinks she is "having surgery today" and thinks she is in "long term" and later states she is "being kicked out of this ho spital"). The patient has tried to pull out R IJ CVP line, therefore was ordered to be in soft, 3-point restraints. Will resume her Klonepin treatment, which was apparently keeping her stable. If no improvement, will contact neuro-psych for further advice. (3) Asthma exacerbation Qualifiers: Qualified Code(s): J45.51 - Severe persistent asthma with (acute) exacerbation Assessment/Plan: Resolved, she is on room air. I discussed with the patient and mother was at bedside, that she cannot vape or smoke marijuana, since she will get future asthmatic exacerbations as she had this time. (4) Acute and chronic respiratory failure with hypoxia Assessment/Plan: Resolved, she is on r.a. - Current Meds Current Meds: Current Medications Generic Name Dose Route Start Last Admin Trade Name Freq PRN Reason Stop Dose Admin Acetaminophen 650 mg 04/05/19 18:35 04/11/19 21:02 Tylenol PO 650 mg Q4HR PRN Administration Pain 1 to 4 Albuterol 2.5 mg 04/05/19 18:35 04/10/19 03:39 INH 2.5 mg Q4HR PRN Administration Wheezing Albuterol/Ipratropium 3 ml 04/05/19 20:00 04/14/19 15:53 Duoneb INH 3 ml RTQ4H ALMA Administration Benzonatate 100 mg 04/05/19 20:02 04/06/19 07:03 Tessalon PO 100 mg TID PRN Administration Cough Docusate Sodium 250 - 500 mg 04/10/19 10:00 04/14/19 08:16 Colace 250mg Capsule PO 250 mg DAILY ALMA Administration Formoterol Fumarate 20 mcg 04/07/19 19:00 04/14/19 08:01 Perforomist INH 20 mcg RTBID ALMA Administration Guaifenesin 600 mg 04/06/19 21:00 04/14/19 08:17 Mucinex PO 600 mg BID ALMA Administration Guaifenesin/Codeine Phosphate 5 ml 04/05/19 20:02 04/11/19 15:20 Robitussin Ac PO 5 ml Q6HR PRN Administration Cough Haloperidol 4 mg 04/12/19 12:52 04/14/19 13:25 Haldol Inj IVP 4 mg Q2H PRN Administration Agitation Heparin Sodium (Beef Lung) 30 - 50 unit 04/09/19 20:33 04/14/19 08:17 IVP 50 unit PRN PRN Administration Central Line Protocol (<24 hr) Hydralazine HCl 10 mg 04/10/19 19:33 04/11/19 03:08 Apresoline Inj IVP 10 mg Q6HR PRN Administration NEEDED PER PROVIDER ORDERS Hydromorphone HCl 1 mg 04/07/19 23:46 04/13/19 19:35 Dilaudid Inj Carp IVP 1 mg Q2HR PRN Administration PAIN Cefepime HCl 2 gm/ Sodium 100 mls @ 200 mls/hr 04/07/19 21:00 04/14/19 09:16 Chloride IV Infused BID ALMA Infusion Sodium Chloride 500 mls @ 0 mls/hr 04/08/19 09:53 04/14/19 06:21 Normal Saline 0.9% IV 20 mls/hr Q24H PRN Infusion TKO RATE TKO Vancomycin HCl 1.75 gm/ Sodium 500 mls @ 250 mls/hr 04/14/19 10:00 04/14/19 15:11 Chloride IV Infused Q12H ALMA Infusion Lorazepam 2 mg 04/10/19 16:07 04/14/19 08:18 Ativan Inj (Vial) IVP 2 mg Q2HR PRN Administration Anxiety Pantoprazole Sodium 40 mg 04/12/19 07:00 04/14/19 06:41 Protonix PO 40 mg QDAC ALMA Administration Polyethylene Glycol 17 gm 04/08/19 10:00 12/03/19 08:16 Miralax PO 17 gm DAILY ALMA Administration Prednisone 10 mg 04/14/19 08:00 04/14/19 08:16 Deltasone PO 10 mg DAILYWM ALMA Administration Quetiapine Fumarate 500 mg 04/08/19 21:00 04/13/19 20:22 Seroquel NG 500 mg QPM ALMA Administration Senna 8.6 - 17.2 mg 04/10/19 10:00 04/14/19 08:16 Senokot PO 8.6 mg DAILY ALMA Administration Sertraline HCl 50 mg 04/07/19 09:00 04/14/19 08:16 Zoloft PO 50 mg DAILY ALMA Administration Sodium Chloride 10 ml 04/06/19 01:00 04/14/19 15:58 Normal Saline Flush 0.9% IVP 10 ml 0100,0900,1700 ALMA Administration Sodium Chloride 10 ml 04/05/19 18:35 04/14/19 13:28 Normal Saline Flush 0.9% IVP 10 ml PRN PRN Administration NEEDED PER PROVIDER ORDERS Sodium Chloride 20 ml 04/10/19 19:46 04/14/19 15:58 Normal Saline Flush 0.9% IVP 20 ml PRN PRN Administration After Blood Draw - Lab Result Fish Bone Diagrams: 04/14/19 04:45 04/14/19 15:56 - Additional Planning My Orders: My Active Orders 04/14/19 13:09 Restraints [RC] Q24H 04/14/19 13:10 Restraints Safety Check [RC] Q1H Subjective - Subjective Patient Reports: Other (Confuse, thinks she is in long term) Objective Vital Signs: Vital Signs - 24 hr 04/13/19 04/13/19 04/13/19 18:00 20:11 21:59 Temperature 36.5 C Heart Rate 80 Heart Rate [ 92 100 Monitoring electrodes] Respiratory 24 20 20 Rate Blood Pressure [Left Brachial artery] Blood Pressure 133/80 H 116/71 [Right Brachial artery] O2 Saturation 100 92 04/13/19 04/14/19 04/14/19 23:30 08:00 08:04 Temperature 37.0 C 37.4 C Heart Rate 91 Heart Rate [ 89 107 H Monitoring electrodes] Respiratory 18 20 20 Rate Blood Pressure [Left Brachial artery] Blood Pressure 132/73 H 132/76 H [Right Brachial artery] O2 Saturation 92 95 04/14/19 04/14/19 04/14/19 11:19 11:24 15:54 Temperature 37.4 C Heart Rate 90 90 86 Heart Rate [ Monitoring electrodes] Respiratory 20 20 20 Rate Blood Pressure [Left Brachial artery] Blood Pressure [Right Brachial artery] O2 Saturation 04/14/19 16:00 Temperature 37.0 C Heart Rate Heart Rate [ 84 Monitoring electrodes] Respiratory 20 Rate Blood Pressure 135/74 H [Left Brachial artery] Blood Pressure [Right Brachial artery] O2 Saturation Oxygen O2 Source Room air Oxygen Flow Rate 6 I&O (Last 24 Hrs): Intake and Output Totals x24h 04/12/19 04/13/19 04/14/19 23:59 23:59 23:59 Intake Total 1050 2208.000 1499.667 Output Total 3165 3605 Balance -2115 -3686.365 9021.667 General: Alert HEENT: Mucous membr. moist/pink Neck: Supple Neuro: Disoriented Cardiovascular: Regular rate Respiratory: No respiratory distress Abdomen: Soft Extremities: No edema - Results Results: Laboratory Results WBC 9.1 x10^3/uL (4.8-10.8) 04/14/19 04:45 RBC 4.08 10^6/uL (4.20-5.40) L 04/14/19 04:45 Hgb 12.4 g/dL (12.0-16.0) 04/14/19 04:45 Hct 36.3 % (37.0-47.0) L 04/14/19 04:45 MCV 89.0 fL (81.0-99.0) 04/14/19 04:45 MCH 30.4 pg (27.0-31.0) 04/14/19 04:45 MCHC 34.2 g/dL (32.0-36.0) 04/14/19 04:45 RDW 12.9 % (12.0-15.0) 04/14/19 04:45 Plt Count 144 10^3/uL (130-450) 04/14/19 04:45 MPV 10.0 fL (7.9-10.8) 04/14/19 04:45 Neut # (Auto) 5.3 10^3/uL (1.5-6.6) 04/14/19 04:45 Lymph # (Auto) 2.3 10^3/uL (1.5-3.5) 04/14/19 04:45 [place] # (Auto) 1.0 10^3/uL (0.0-1.0) 04/14/19 04:45 Eos # (Auto) 0.2 10^3/uL (0.0-0.7) 04/14/19 04:45 Baso # (Auto) 0.0 10^3/uL (0.0-0.1) 04/14/19 04:45 Absolute Nucleated RBC 0.00 x10^3/uL 04/14/19 04:45 Total Counted 100 04/11/19 04:25 Band Neuts % (Manual) 4 % (0-10) 04/11/19 04:25 Abnorm Lymph % (Manual) 0 % 04/11/19 04:25 Metamyelocytes % 4 % (-0) H 04/11/19 04:25 Myelocytes % 4 % (-0) H 04/11/19 04:25 Nucleated RBC % 0.0 /100WBC 04/14/19 04:45 Neutrophils # (Manual) 9.1 10^3/uL (1.5-6.6) H 04/11/19 04:25 Lymphocytes # (Manual) 1.5 10^3/uL (1.5-3.5) 04/11/19 04:25 Monocytes # (Manual) 0.6 10^3/uL (0.0-1.0) 04/11/19 04:25 Eosinophils # (Manual) 0.0 10^3/uL (0-0.7) 04/11/19 04:25 Basophils # (Manual) 0.0 10^3/uL (0-0.1) 04/11/19 04:25 Differential Comment MANUAL DIFFERENTIAL 04/11/19 04:25 Manual Slide Review Indicated 04/07/19 07:38 WBC Morphology NORMAL APPEARANCE (NORMAL) 04/08/19 05:05 Platelet Estimate NORMAL (130-450,000) (NORMAL) 04/11/19 04:25 Platelet Morphology NORMAL APPEARANCE (NORMAL) 04/08/19 05:05 RBC Morph Micro Appear NORMAL APPEARANCE (NORMAL) 04/11/19 04:25 Bld Gas Analysis Time 0634 04/10/19 06:26 Sample Site RIGHT RADIAL 04/10/19 06:26 ABG pH 7.42 (7.35-7.45) 04/10/19 06:26 ABG pCO2 41 mmHg (34-45) 04/10/19 06:26 ABG pO2 137 mmHg (80-100) H 04/10/19 06:26 ABG HCO3 26.3 mmol/L (22.0-26.0) H 04/10/19 06:26 ABG Total CO2 27.6 MMOL/L (21.0-29.0) 04/10/19 06:26 ABG O2 Saturation 99 % (94-98) H 04/10/19 06:26 ABG Oximetry Spot Check 96 % 04/06/19 09:30 ABG Base Excess 1.7 mmol/L (-2.0-3.0) 04/10/19 06:26 Silvano Test POSITIVE 04/10/19 06:26 VBG pH 7.385 (7.31-7.41) 04/05/19 14:58 VBG pCO2 35.1 mmHg (41-51) L 04/05/19 14:58 VBG pO2 50.4 mmHg (25-47) H 04/05/19 14:58 VBG HCO3 20.5 mmol/L (23-28) L 04/05/19 14:58 VBG Total CO2 21.6 mmol/L (24-29) L 04/05/19 14:58 VBG O2 Saturation 88.7 % (60-80) H 04/05/19 14:58 VBG Base Excess -3.7 mmol/L (-2 - +2) L 04/05/19 14:58 Respiration Rate 20 b/min 04/10/19 06:26 O2 Delivery Device VENTILATOR 04/10/19 06:26 O2 Liters/Min 40.00 LPM 04/07/19 18:02 Vent Mode SIMV 04/10/19 06:26 FiO2 50.00 04/10/19 06:26 Tidal Volume 400 mL 04/10/19 06:26 PEEP 5 cmH2O 04/10/19 06:26 Pressure Support Vent 14 cmH2O 04/10/19 06:26 Sodium 141 mmol/L (135-145) 04/14/19 04:45 Potassium 3.9 mmol/L (3.5-5.0) 04/14/19 15:56 Chloride 107 mmol/L (101-111) 04/14/19 04:45 Carbon Dioxide 26 mmol/L (21-32) 04/14/19 04:45 Anion Gap 8.0 (6-13) 04/14/19 04:45 BUN 13 mg/dL (6-20) 04/14/19 04:45 Creatinine 0.5 mg/dL (0.4-1.0) 04/14/19 04:45 Estimated GFR (MDRD) 139 (>89) 04/14/19 04:45 Glucose 111 mg/dL (70-100) H 04/14/19 04:45 POC Whole Bld Glucose 128 mg/dL (70 - 100) H 04/09/19 19:35 Lactic Acid 1.6 mmol/L (0.5-2.2) 04/05/19 23:18 Calcium 8.6 mg/dL (8.5-10.3) 04/14/19 04:45 Phosphorus 3.1 mg/dL (2.5-4.6) 04/12/19 04:20 Magnesium 2.0 mg/dL (1.7-2.8) 04/12/19 04:20 Total Bilirubin 1.0 mg/dL (0.2-1.0) 04/05/19 14:58 AST 91 IU/L (10-42) H 04/05/19 14:58 ALT 73 IU/L (10-60) H 04/05/19 14:58 Alkaline Phosphatase 83 IU/L (42-121) 04/05/19 14:58 Troponin I High Sens 30.2 ng/L (2.3-14.8) H* 04/05/19 23:18 Total Protein 7.3 g/dL (6.7-8.2) 04/05/19 14:58 Albumin 2.9 g/dL (3.2-5.5) L 04/13/19 04:22 Globulin 3.7 g/dL (2.1-4.2) 04/05/19 14:58 Albumin/Globulin Ratio 1.0 (1.0-2.2) 04/05/19 14:58 Triglycerides 728 mg/dL (-149) H 04/09/19 05:00 LDL Cholesterol Direct 53 mg/dL (-129) 04/09/19 05:00 dLDL/HDL Ratio TNP 04/09/19 05:00 Lipase 25 U/L (22-51) 04/05/19 14:58 Urine Color YELLOW 04/05/19 15:40 Urine Clarity CLEAR (CLEAR) 04/05/19 15:40 Urine pH 8.0 PH (5.0-7.5) H 04/05/19 15:40 Ur Specific Lucien 1.025 (1.002-1.030) 04/09/19 16:03 Urine Protein NEGATIVE mg/dL (NEGATIVE) 04/05/19 15:40 Urine Glucose (UA) NEGATIVE mg/dL (NEGATIVE) 04/05/19 15:40 Urine Ketones NEGATIVE mg/dL (NEGATIVE) 04/05/19 15:40 Urine Occult Blood MODERATE (NEGATIVE) H 04/05/19 15:40 Urine Nitrite NEGATIVE (NEGATIVE) 04/05/19 15:40 Urine Bilirubin NEGATIVE (NEGATIVE) 04/05/19 15:40 Urine Urobilinogen 0.2 (NORMAL) E.U./dL (NORMAL) 04/05/19 15:40 Ur Leukocyte Esterase NEGATIVE (NEGATIVE) 04/05/19 15:40 Urine RBC 11-25 /HPF (0-5) H 04/05/19 15:40 Urine WBC 0-3 /HPF (0-5) 04/05/19 15:40 Ur Squamous Epith Cells RARE Squamous (<= Few) 04/05/19 15:40 Urine Bacteria Few /HPF (None Seen) 04/05/19 15:40 Ur Microscopic Review INDICATED 04/05/19 15:40 Urine Culture Comments NOT INDICATED 04/05/19 15:40 Urine HCG, Qual NEGATIVE 04/09/19 16:03 Nasal Screen MRSA (PCR) NEGATIVE (NEGATIVE) 04/05/19 19:19 Last Dose Date UNK 04/11/19 09:30 Last Dose Time UNK 04/11/19 09:30 Vancomycin Trough 14.8 ug/mL (10.0-20.0) 04/11/19 09:30 Urine Opiates Screen POSITIVE (NEGATIVE) H 04/05/19 15:40 Ur Oxycodone Screen NEGATIVE (NEGATIVE) 04/05/19 15:40 Urine Methadone Screen NEGATIVE (NEGATIVE) 04/05/19 15:40 Ur Propoxyphene Screen NEGATIVE (NEGATIVE) 04/05/19 15:40 Ur Barbiturates Screen NEGATIVE (NEGATIVE) 04/05/19 15:40 Ur Tricyclics Screen POSITIVE (NEGATIVE) H 04/05/19 15:40 Ur Phencyclidine Scrn NEGATIVE (NEGATIVE) 04/05/19 15:40 Ur Amphetamine Screen NEGATIVE (NEGATIVE) 04/05/19 15:40 U Methamphetamines Scrn NEGATIVE (NEGATIVE) 04/05/19 15:40 U Benzodiazepines Scrn POSITIVE (NEGATIVE) H 04/05/19 15:40 Urine Cocaine Screen NEGATIVE (NEGATIVE) 04/05/19 15:40 U Cannabinoids Screen POSITIVE (NEGATIVE) H 04/05/19 15:40 Influenza A (Rapid) Negative (Negative) 04/05/19 22:00 Influenza B (Rapid) Negative (Negative) 04/05/19 22:00 - Procedures Procedures: Procedures INSERTION OF ENDOTRACHEAL AIRWAY INTO TRACHEA, VIA OPENING (09/18/17) INSERTION OF INFUSION DEV INTO SUP VENA CAVA, PERC APPROACH (09/18/17) RESPIRATORY VENTILATION, 24-96 CONSECUTIVE HOURS (09/18/17) Sepsis Event Note (H) - Evaluation Current Stage of Sepsis: Resolved Possible source of Sepsis: positive: Pulmonary - Sepsis Criteria Sepsis Criteria: Recorded Temperature greater than 38.3C or Less than 36C, Recorded Heart Rate greater than 90 bpm, Recorded Respiratory Rate greater than 20, Respiratory: Increasing oxygen requirements, WBC count greater than 12,000 or less than 4000, Metabolic: lactate > 2 mmol/L
[2019-04-14] MEDS: QUEtiapine 100 MG TABLET NG SCH (20:38)
[2019-04-14] MEDS: clonazePAM 0.5 MG TABLET PO SCH (20:38)
[2019-04-14] MEDS: SODIUM CHLORIDE 0.9% 500 ML IV PRN (20:38)
[2019-04-15] MEDS: SODIUM CHLORIDE FLUSH 0.9% 10 ML SYRINGE IVP SCH ×2 (00:45→08:46)
[2019-04-15] MEDS: SODIUM CHLORIDE FLUSH 0.9% 10 ML SYRINGE IVP PRN ×4 (00:45→08:45)
[2019-04-15] MEDS: IPRATROPIUM/ALBUTEROL 3 ML NEB INH SCH (02:28)
[2019-04-15] MEDS: FORMOTEROL FUMARATE NEB 20 MCG/2 ML INH SCH (02:28)
[2019-04-15 06:00] LABS: BASOPHILS % (AUTO) 0.5 %; EOSINOPHILS # (AUTO) 0.5 10^3/uL (0.0-0.7); EOSINOPHILS % (AUTO) 5.7 %; HGB - HEMOGLOBIN 12.7 g/dL (12.0-16.0); LYMPHOCYTES # (AUTO) 2.7 10^3/uL (1.5-3.5); LYMPHOCYTES % (AUTO) 34.1 %; MEAN CORPUSCULAR HEMOGLOBIN 31.1 pg (27.0-31.0); MEAN CORPUSCULAR HGB CONC 34.6 g/dL (32.0-36.0); MEAN CORPUSCULAR VOLUME 89.7 fL (81.0-99.0); MEAN PLATELET VOLUME 9.4 fL (7.9-10.8); MONOCYTES % (AUTO) 12.1 %; NEUTROPHILS # (AUTO) 3.6 10^3/uL (1.5-6.6); NEUTROPHILS % (AUTO) 45.8 %; PLT - PLATELET COUNT 137 10^3/uL (130-450); RED BLOOD COUNT 4.09 10^6/uL (4.20-5.40); RED CELL DISTRIBUTION WIDTH 13.2 % (12.0-15.0); WHITE BLOOD COUNT 7.8 x10^3/uL (4.8-10.8)
[2019-04-15 06:06] LABS: CALCIUM 8.4 mg/dL (8.5-10.3); CREATININE 0.5 mg/dL (0.4-1.0)
[2019-04-15] MEDS: PANTOPRAZOLE 40 MG TABLET PO SCH (06:38)
[2019-04-15] MEDS: HALOPERIDOL 5 MG/ML VIAL IVP PRN (08:00)
[2019-04-15] MEDS: DOCUSATE SODIUM 250 MG CAPSULE PO SCH (08:28)
[2019-04-15] MEDS: POLYETHYLENE GLYCOL 3350 17 GM PACKET PO SCH (08:28)
[2019-04-15] MEDS: SENNA 8.6 MG TABLET PO SCH (08:29)
[2019-04-15] MEDS: predniSONE 10 MG TABLET PO SCH (08:44)
[2019-04-15] MEDS: SERTRALINE 25 MG TABLET PO SCH (08:44)
[2019-04-15] MEDS: clonazePAM 0.5 MG TABLET PO SCH (08:44)
[2019-04-15] MEDS: HYDROmorphone 1 MG/ML CARPUJECT IVP PRN (08:45)
[2019-04-15 12:18] LABS: CALCIUM 8.5 mg/dL (8.5-10.3); CREATININE 0.6 mg/dL (0.4-1.0)
[2019-04-15] MEDS ORDERED: IPRATROPIUM/ALBUTEROL 3 ML NEB INH PRN (13:31)
[2019-04-15] MEDS ORDERED: clonazePAM 0.5 MG TABLET PO SCH (14:00)
--- NOTE | 2019-04-15 15:59 | Discharge Plan ---
Discharge Plan Problem Reviewed?: Yes Disposition: Home, Self Care Condition: Stable Diet: Regular Activity Restrictions: Activity as Tolerated Shower Restrictions: No Weight Bearing: Full Weight Instruction Topics: Triggers Asthma Health Concerns: You were admitted in critical condition due to pneumonia and a severe asthma attack, due to vaping and smoking marijuana. After that, you were delusional from being off your psych meds. Plan of Treatment: The pneumonia treatment was completed. DO NOT VAPE AND DO NOT SUBSTITUTE MARIJUANA FOR YOUR KLONOPIN. The asthma medications and all your previous psychiatric medications should be resumed, includingthe 3-time a day Klonopin. Care Goals: Stabilization and safe functioning are the goals. Assessment: The patient understands and agrees. No Smoking: If you smoke, Please STOP! Call for help. Follow-up with: Billy Azevedo MD [Primary Care Provider] -
[2019-04-15 16:02] VITALS: BP 111/89
--- NOTE | 2019-04-15 18:43 | DISCHARGE SUMMARY ---
Discharge Summary Admit Date: 04/05/19 Discharge Date: 04/15/19 Discharging Provider: Dr Aline White Primary Care Provider: Dr Billy Azevedo Code Status: Attempt Resuscitation Condition at Discharge: Stable Discharge Disposition: 01 Home, Self Care - DIAGNOSES Admission Diagnoses: (1) Acute and chronic respiratory failure with hypoxia (2) Asthma exacerbation (3) Sepsis (4) Syncope (5) Community acquired pneumonia (6) Anxiety (7) Bipolar disorder (8) Hepatitis C Discharge Diagnoses with Status of Each Condition: See below - HPI History of Present Illness: From the admission H&P of Dr Toy Panchal: This is a 38-year-old white female with a past medical history significant for asthma/COPD, chronic hypoxic respirator failure requiring 3 L of oxygen, bipolar disorder, hepatitis C who presents from home complaining of worsening shortness of breath. She reports she had been doing well these past few days up until today. She was cooking in the kitchen when she got frustrated so she went outs shilpa to take her dog out. She was sitting on her porch when all of a sudden she passed out and was on the ground. She cannot recall what happened. She reports feeling shortness of breath prior to the event but denies chest pain or palpitations. She was able to get herself back into the house when her neighbors checked in on her and they called 911. When EMS arrived they found her down with an oxygen saturation and the 70s. The patient stated she not been using her oxygen for the last few days as it was broken. She states she normally wears 3 L of oxygen at rest and 4 L with exertion. She is currently a non-smoker but does have a prior smoking history but quit 1.5 years ago. She has vaped. She does have occasional secondhand exposure to smoke as her neighbor does smoke when they visit her. She reports getting the pneumonia vaccine this year but did not get a flu vaccine. She does report subjective fevers, wheezing, nonproductive cough. She does have some nausea but no vomiti ng. Denies abdominal pain. She has been taking her albuterol without much relief. She reports she is not on any other inhalers just the albuterol. She believes she might of been on a inhaled corticosteroid in the past but this was discontinued after she developed oral thrush and what appears to be an infection of her throat. She reports being intubated over one year ago for nearly 10 days. In the emergency department, she was febrile with a temperature of 38.2C, tachycardic in the 110s, normotensive, tachypnea in the high 20s, saturating 77% on room air. She was given 3 L of oxygen with improvement to 90%. Labs revealed a white count of 16.8 with a left shift. A VBG revealed a pH 7.385. Her lactic acid was elevated at 4. AST and ALT are elevated at 91 and 73 respectively. 2 view chest x-ray showed possible right perihilar atelectasis/bronchitis with possible developing pneumonia. In the emergency department, she was given Decadron 10 mg p.o., a breathing treatment, Tessalon for her cough. She was screaming from getting iv sticks and was admitted to the ICU for asthmatic e xacerbation, pneumonia and altered mental status in a bipolar patient. - HOSPITAL COURSE Hospital Course: 1) Acute and chronic respiratory failure with hypoxia Her oxygenation continued to be poor and she needed escalating levels of supplemental oxygen, up to an oxygen mask then a rebreather then BiPAP. She eventually needed intubation and was on the ventilator for several days. She was treated for bronchospasm and for her pneumonia and was able to be extubated, and moved out of the ICU. She was then weaned down to room air and prn nebs and a rapid taper down of steroids due to it causing her worsening anxiety. When she was finally lucid, which was in the final 2-3 days of hospitalization, she admitted that she had been vaping marijuana. She was advised to not vape whatsoever due to her significant asthma history, and to be compliant with her inhalers and home oxygen use. 2) Asthmatic exacerbation As above 3) Community acquired pneumonia She made minimal sputum. She was treated with empiric iv Ceftriaxone and iv Zithromax, and finished her entire course of treatment while here. Blood cultures all remained negative. Her sputum culture only grew yeast, no bacteria. 4) Sepsis She presented with a fever, tachycardia, tachypnea, elevated WBC that was as high as 28, elevated lactic acid level at 4, and a pulmonary infection was felt to be the source 5) Bipolar disorder After extubation, her oral psych meds were restarted. Despite having stable vital signs, and having no respiratory distress, her mental status continued to be foggy, she was delusional or hallucinating and needed one-to-one observation and soft restraints in order to not climb out of bed or pull out her CVP line. At this time she thought she was "in senior care" and that she needed a "doctor's excuse to be released". When she was finally somewhat lucid, which was in the final 2-3 days of hospitalization, she admitted that she had weaned herself off of her Seroquel over 6 weeks [address] in its [address] was vaping marijuana, as a sedative. This was not a prescribed course of treatment by her PCP and she has no Psychiatrist. In the final 2 days, she was started on her old Seroquel dose which resulted in her being clear, oriented, not delusional, and able to ambulat e without ataxia. Her mother was at her bedside during most of this hospitalization and reported that the patient had done something similar about a year ago when [place]. Currently the patient lives in [place] with her dog because she can "afford the rent" however the mother still picks her up from [facility] to take her to see her PCP in [place]. She has been waiting for 5 years for housing assistance to move to [facility], closer to family. 6) Hx of noncompliance with medical treatment, presenting hazards to health As described in #4 - ALLERGIES Allergies/Adverse Reactions: Allergies Allergy/AdvReac Type Severity Reaction Status Date / Time tramadol Allergy Rash Verified 04/05/19 10:21 Penicillins AdvReac Intermediate Edema Verified 04/05/19 10:21 - MEDICATIONS Home Medications: Ambulatory Orders Medication Instructions Recorded Confirmed Albuterol 2.5 mg INH Q4H PRN 09/18/17 04/05/19 Albuterol Sulf [Ventolin Hfa 2 puffs INH Q4HR PRN 09/18/17 04/05/19 Inhaler] clonazePAM [Clonazepam] 1 mg PO TID 09/18/17 04/05/19 lamoTRIgine [LaMICtal] 100 mg PO BID 09/18/17 04/05/19 Quetiapine Fumarate 500 mg PO QPM 04/05/19 04/05/19 Sertraline HCl 50 mg PO DAILY 04/05/19 04/05/19 clonazePAM [KlonoPIN] 0.5 mg PO TID #90 tablet 04/15/19 - PHYSICAL EXAM AT DISCHARGE General Appearance: positive: No acute distress, Alert Eyes Bilateral: positive: Normal inspection, Other (eyes cross) ENT: positive: Other (Poor dentition with some teeth missing) Respiratory: positive: No respiratory distress, Breath sounds nml Cardiovascular: positive: Regular rate & rhythm, No murmur Abdomen: positive: Non-tender, No distention Skin: positive: Color nml Extremities: positive: No pedal edema Neurologic/Psychiatric: positive: Oriented x3, Other (Grossly normal) - LABS Result Diagrams: 04/15/19 05:40 04/15/19 12:04 - DIAGNOSTIC IMAGING Diagnostic Imaging Results: Final report reviewed - SEPSIS Current Stage of Sepsis: Resolved Possible source of Sepsis: Pulmonary Sepsis Criteria: Recorded Temperature greater than 38.3C or Less than 36C, Recorded Heart Rate greater than 90 bpm, Recorded Respiratory Rate greater than 20, Respiratory: Increasing oxygen requirements, WBC count greater than 12,000 or less than 4000, Metabolic: lactate > 2 mmol/L - FOLLOW UP Follow Up: See PCP in 1-2 weeks in hospital follow-up - TIME SPENT Time Spent in Discharge (Minutes): 60
[2019-04-16] MEDS ORDERED: predniSONE 5 MG TABLET PO SCH (08:00)
== END 2019-04-15 16:15 | disposition home or self-care (01) | DRG 871 ==
LOC: EDUNIT# → ED 09:57 → ICU 16:49 → MS2 04-13 18:24
PROVIDERS: ADMIT Internal Medicine; ATTEND Internal Medicine
PROC: 5A1945Z Respiratory Ventilation, 24-96 Consecutive Hours (ICD-10-PCS; principal; 2019-04-07)
PROC: 0BH18EZ Insertion of Endotracheal Airway into Trachea, Via Natural or Artificial Opening Endoscopic (ICD-10-PCS; 2019-04-07)
PROC: 02HV33Z Insertion of Infusion Device into Superior Vena Cava, Percutaneous Approach (ICD-10-PCS; 2019-04-07)
DX: A41.9 Sepsis, unspecified organism (principal); J96.21 Acute and chronic respiratory failure with hypoxia; J18.9 Pneumonia, unspecified organism; R09.02 Hypoxemia; B37.1 Pulmonary candidiasis; Z91.138 Patient's unintentional underdosing of medication regimen for other reason; Y92.009 Unspecified place in unspecified non-institutional (private) residence as the place of occurrence of the external cause; F17.290 Nicotine dependence, other tobacco product, uncomplicated; R40.2412 Glasgow coma scale score 13-15, at arrival to emergency department; F31.9 Bipolar disorder, unspecified; J44.0 Chronic obstructive pulmonary disease with (acute) lower respiratory infection; J45.51 Severe persistent asthma with (acute) exacerbation; F05 Delirium due to known physiological condition; Z72.89 Other problems related to lifestyle; F31.2 Bipolar disorder, current episode manic severe with psychotic features; R55 Syncope and collapse; F41.9 Anxiety disorder, unspecified; T40.7X1A Poisoning by cannabis (derivatives), accidental (unintentional), initial encounter; T43.596A Underdosing of other antipsychotics and neuroleptics, initial encounter; T42.4X6A Underdosing of benzodiazepines, initial encounter; T41.5X6A Underdosing of therapeutic gases, initial encounter; Z91.128 Patient's intentional underdosing of medication regimen for other reason; Y92.008 Other place in unspecified non-institutional (private) residence as the place of occurrence of the external cause; B19.20 Unspecified viral hepatitis C without hepatic coma; F43.10 Post-traumatic stress disorder, unspecified; E66.01 Morbid (severe) obesity due to excess calories; E78.1 Pure hyperglyceridemia; T41.295A Adverse effect of other general anesthetics, initial encounter; Y92.230 Patient room in hospital as the place of occurrence of the external cause; F17.298 Nicotine dependence, other tobacco product, with other nicotine-induced disorders; Z99.81 Dependence on supplemental oxygen; Z79.899 Other long term (current) drug therapy; Z78.1 Physical restraint status; Z87.898 Personal history of other specified conditions; Z88.0 Allergy status to penicillin; Z91.5 Personal history of self-harm; Z68.37 Body mass index [BMI] 37.0-37.9, adult; Z86.14 Personal history of Methicillin resistant Staphylococcus aureus infection
CPT/HCPCS: 36415; 36600; 71045; 71046; 80048; 80053; 80202; 81001; 81025; 82040; 82803; 83605; 83690; 83721; 83735; 84100; 84132; 84478; 84484; 85025; 87040; 87070; 87150; 87205; 87275; 87276; 93005; 94002; 94003; 94640; 96372; 97116; 97161; 97530; 99284; 99285; A9270; J0330; J1170; J2060; J3370; J7120; J7512; 80306; 81003; 87086; 94770

== ENCOUNTER 2019-04-25 21:57 | Outpatient (CLI) | payer MEDICARE, MEDICAID | END 2019-04-25 21:58 | disposition short-term general hospital (02) | LOC: EMS 21:57 | PROVIDERS: ATTEND Surgery | DX: R41.0 Disorientation, unspecified (principal); R41.3 Other amnesia; R53.1 Weakness; M54.9 Dorsalgia, unspecified; M79.605 Pain in left leg; M79.604 Pain in right leg; W18.09XA Striking against other object with subsequent fall, initial encounter; Y92.009 Unspecified place in unspecified non-institutional (private) residence as the place of occurrence of the external cause; Z91.81 History of falling | CPT/HCPCS: A0425; A0429 ==

== ENCOUNTER 2019-05-25 12:59 | Outpatient (CLI) | payer MEDICARE, MEDICAID | END 2019-05-25 13:00 | disposition critical access hospital (66) | LOC: EMS 12:59 | PROVIDERS: ATTEND Surgery | DX: R07.81 Pleurodynia (principal); R05 Cough | CPT/HCPCS: A0425; A0429 ==

== ENCOUNTER 2019-05-25 13:22 | Emergency (ER) | payer MEDICARE, MEDICAID ==
[2019-05-25 13:46] VITALS: BP 118/67
--- NOTE | 2019-05-25 14:57 | ED Physician Documentation ---
History of Present Illness - Stated complaint Stated Complaint: RIB PX - Chief complaint Chief Complaint: General - Additonal information Additional information: This is a 38-year-old female with a history of COPD, multiple episodes of past p neumonia, anxiety and bipolar disorder who presents with left lower chest discomfort. Patient states that she is been try to be more active and after exercising the other day she began developing some soreness on her left lower rib on the interface between her left lower rib and left upper quadrant of her abdomen. Is worse when she presses on the area and when she moves or twists, or takes a deep breath to the point where expands her ribs. She denies any fever or cough, no hemoptysis, no leg swelling. She denied of any upper chest pain, no back pain. She called her primary care provider and he was unable to see her today so directed her to come into the emergency department. She states her breathing feels at baseline. She has had no direct trauma to her chest recently. Review of Systems Constitutional: denies: Fever Throat: denies: Dental pain / toothache Cardiac: reports: Chest pain / pressure Respiratory: denies: Dyspnea GI: denies: Vomiting : denies: Dysuria Skin: denies: Rash PD PAST MEDICAL HISTORY - Past Medical History Past Medical History: Yes Cardiovascular: None Respiratory: Asthma, COPD, Pneumonia Neuro: None Endocrine/Autoimmune: None GI: None, Hepatitis [employer]: None : None HEENT: None Psych: Anxiety, Bipolar disorder, Post traumatic stress disorder Musculoskeletal: None Derm: None - Past Surgical History Past Surgical History: Yes General: Cholecystectomy, Other Ortho: Knee replacement, Other - Present Medications Home Medications: Ambulatory Orders Medication Instructions Recorded Confirmed Albuterol 2.5 mg INH Q4H PRN 09/18/17 04/05/19 Albuterol Sulf [Ventolin Hfa 2 puffs INH Q4HR PRN 09/18/17 04/05/19 Inhaler] clonazePAM [Clonazepam] 1 mg PO TID 09/18/17 04/05/19 lamoTRIgine [LaMICtal] 100 mg PO BID 09/18/17 04/05/19 Quetiapine Fumarate 500 mg PO QPM 04/05/19 04/05/19 Sertraline HCl 50 mg PO DAILY 04/05/19 04/05/19 clonazePAM [KlonoPIN] 0.5 mg PO TID #90 tablet 04/15/19 Cyclobenzaprine [Flexeril] 10 mg PO TID PRN #20 tablet 05/25/19 - Allergies Allergies/Adverse Reactions: Allergies Allergy/AdvReac Type Severity Reaction Status Date / Time tramadol Allergy Rash Verified 05/25/19 13:33 Penicillins AdvReac Intermediate Edema Verified 05/25/19 13:33 - Social History Does the pt smoke?: No Smoking Status: Former smoker Does the pt drink ETOH?: No Does the pt have substance abuse?: Yes Substance Use and Type: Marijuana - Immunizations Immunizations are current?: Yes - POLST Patient has POLST: No PD ED PE NORMAL - Vitals Vital signs reviewed: Yes - General General: Alert and oriented X 3, No acute distress - HEENT HEENT: PERRL - Neck Neck: Supple, no meningeal sign - Cardiac Cardiac: RRR, No murmur - Respiratory Respiratory: No respiratory distress, Clear bilaterally, Other (There is focal and reproducible chest wall tenderness in the left lower ribs anteriorly, no skin changes or ecchymosis or bruising.) - Abdomen Abdomen: Normal bowel sounds, Soft, Non tender, Non distended - Derm Derm: Warm and dry - Extremities Extremities: No deformity - Neuro Neuro: Alert and oriented X 3 - Psych Psych: Normal mood, Normal affect Results - Vitals Vitals: Vital Signs - 24 hr 05/25/19 13:33 Temperature 36.6 C Heart Rate 112 H Respiratory 22 Rate Blood Pressure 118/67 O2 Saturation 98 Oxygen O2 Source Nasal cannula - EKG (time done) 15:27 Other comments: Other comments (Rate 99, rhythm sinus, there is no ST segment elevation or depression, no abnormal T wave inversions, intervals are within normal limits.) - Labs Labs: Laboratory Tests 05/25/19 05/25/19 05/25/19 16:37 16:37 16:37 WBC 10.8 RBC 4.89 Hgb 14.8 Hct 44.0 MCV 90.0 MCH 30.3 MCHC 33.6 RDW 12.7 Plt Count 250 MPV 9.9 Neut # (Auto) 6.3 Lymph # (Auto) 3.3 [place] # (Auto) 0.7 Eos # (Auto) 0.3 Baso # (Auto) 0.1 Absolute Nucleated RBC 0.00 Nucleated RBC % 0.0 Sodium 141 Potassium 4.1 Chloride 106 Carbon Dioxide 24 Anion Gap 11.0 BUN 9 Creatinine 0.6 Estimated GFR (MDRD) 112 Glucose 91 Calcium 9.1 Total Bilirubin 0.6 AST 59 H ALT 62 H Alkaline Phosphatase 100 Troponin I High Sens < 2.3 L Total Protein 6.8 Albumin 3.5 Globulin 3.3 Albumin/Globulin Ratio 1.1 Lipase 24 - Rads (name of study) CXR Radiology: Final report received (Normal 2 view chest) PD MEDICAL DECISION MAKING - ED course Complexity details: considered differential (MSK pain, ACS, rib fracture, contusion, costochondritis, PNA, PTX, PE) ED course: On arrival pt is well-appearing. Her initial vital signs showed tachycardia, but this was when she was mildly agitated and just after transferring, which caused her to have more pain. On my exam her heart rate is normal in the 80s. Her O2 saturation is normal as well. She has no leg swelling, no signs of DVT, her pain is reproducible and worse with movement and over the lower anterior ribs, and this does not appear to be a PE. EKG shows no convincing signs of ischemia or dysrhtymia. Troponin is negative, her history and work up are not consistent with ACS. Labs are unremarkable other than mild LFT elevations that pt states are chronic from HepC - I discussed she should follow up and discuss treatment with her PCP. CXR is normal, no signs of PTX, PNA, displaced rib fractures. Abdomen is benign. I discussed with pt that the cause of her discomfort is unclear, chest wall pain is certainly possible given its focus and reproducibility. I prescribed flexeril, discussed follow up and return precautions, and pt was discharged home in good condition. Departure - Departure Disposition: 01 Home, Self Care Clinical Impression: Chest pain Qualifiers: Chest pain type: unspecified Qualified Code(s): R07.9 - Chest pain, unspecified Condition: Good Instructions: ED Chest Pain Atypical Unkn Cause Prescriptions: Cyclobenzaprine [Flexeril] 10 mg PO TID PRN #20 tablet PRN Reason: Spasms Comments: You were seen today for discomfort on the front of your chest. Your x-ray looks good and your labs are reassuring, other than you do have some mild elevations of your liver enzymes which may be due to fatty liver. Please follow-up with your primary care provider on these mild liver enzyme elevations and on your symptom. If you are having significantly worsening pain, difficulty breathing or other symptoms return to the emergency department. Discharge Date/Time: 05/25/19 17:35
[2019-05-25] MEDS ORDERED: IBUPROFEN 600 MG TABLET PO STA (15:08)
[2019-05-25] MEDS ORDERED: methocarbamoL 500 MG TABLET PO STA (15:08)
--- NOTE | 2019-05-25 15:37 | XRAY Report ---
Reason: LL anterior chest pain Procedure Date: 05/25/2019 Accession Number: [id number] / [id number] Procedure: XR - Chest 2 View X-Ray CPT Code: 10123 Final Report FULL RESULT: EXAM: CHEST RADIOGRAPHY EXAM DATE: 05/25/2019 03:25 PM. CLINICAL HISTORY: LL anterior chest pain. COMPARISON: CHEST 1 VIEW 04/11/2019 2:25 PM. TECHNIQUE: 2 views. FINDINGS: Lungs/Pleura: No focal opacities evident. No pleural effusion. No pneumothorax. Normal volumes. Mediastinum: Heart and mediastinal contours are unremarkable. Other: None. IMPRESSION: Normal 2-view chest radiography. [facility]
[2019-05-25 16:50] LABS: BASOPHILS # (AUTO) 0.1 10^3/uL (0.0-0.1); BASOPHILS % (AUTO) 0.8 %; EOSINOPHILS # (AUTO) 0.3 10^3/uL (0.0-0.7); HGB - HEMOGLOBIN 14.8 g/dL (12.0-16.0); LYMPHOCYTES # (AUTO) 3.3 10^3/uL (1.5-3.5); LYMPHOCYTES % (AUTO) 30.4 %; MEAN CORPUSCULAR HEMOGLOBIN 30.3 pg (27.0-31.0); MEAN CORPUSCULAR HGB CONC 33.6 g/dL (32.0-36.0); MEAN PLATELET VOLUME 9.9 fL (7.9-10.8); MONOCYTES # (AUTO) 0.7 10^3/uL (0.0-1.0); MONOCYTES % (AUTO) 6.8 %; NEUTROPHILS # (AUTO) 6.3 10^3/uL (1.5-6.6); NEUTROPHILS % (AUTO) 58.3 %; PLT - PLATELET COUNT 250 10^3/uL (130-450); RED BLOOD COUNT 4.89 10^6/uL (4.20-5.40); RED CELL DISTRIBUTION WIDTH 12.7 % (12.0-15.0); WHITE BLOOD COUNT 10.8 x10^3/uL (4.8-10.8)
[2019-05-25 17:10] LABS: ALBUMIN 3.5 g/dL (3.2-5.5); ALBUMIN/GLOBULIN RATIO 1.1 (1.0-2.2); BILIRUBIN,TOTAL 0.6 mg/dL (0.2-1.0); CALCIUM 9.1 mg/dL (8.5-10.3); CREATININE 0.6 mg/dL (0.4-1.0); TOTAL PROTEIN 6.8 g/dL (6.7-8.2)
== END 2019-05-25 17:35 | disposition home or self-care (01) ==
LOC: EDUNIT# → ED 13:22
DX: R07.89 Other chest pain (principal); R74.8 Abnormal levels of other serum enzymes; J44.9 Chronic obstructive pulmonary disease, unspecified; Z87.891 Personal history of nicotine dependence; F41.9 Anxiety disorder, unspecified; F31.9 Bipolar disorder, unspecified
CPT/HCPCS: 36415; 71046; 80053; 83690; 84484; 85025; 93005; 99284; A9270